=== PATIENT | male | born 1970 | race Caucasian/White ===

== ENCOUNTER 2016-12-04 10:07 | Emergency (ER) | payer OTHER ==
[~2016-12-04 10:07] MED LIST: CARV6.252 PO; DXY100 PO; LSN25 PO; RIVA1TAB4 PO
[2016-12-04 10:14] VITALS: TEMP 36.7; Ht 182.9 cm
[2016-12-04] MEDS ORDERED: ONDANSETRON INJ 2 MG/ML 2 ML VIAL IV STA (10:34)
[2016-12-04] MEDS ORDERED: SODIUM CHLORIDE 0.9% 1000ML 1,000 ML IV STA (10:34)
[2016-12-04] MEDS ORDERED: FENTANYL CITRATE INJ 50 MCG/1 ML 2 ML VIAL IV STA ×2 (10:34→11:46)
[2016-12-04] MEDS ORDERED: LISI-725 PO (10:43)
[2016-12-04] MEDS ORDERED: LISI-729 PO (10:43)
[2016-12-04 10:51] LABS: BASO % 0.7 %; BASO ABS # 0.05 K/uL (0-0.2); COMPLETE YES; EOS % 2.1 %; HEMATOCRIT 52.3 % (42-52); IG% 0.4 %; LYMPH % 19.1 %; LYMPH ABS # 1.46 K/uL (1.2-3.4); MEAN CELL VOLUME 96.5 fL (80-100); MEAN CORPUSCULAR HEMOGLOBIN 35.8 pg (25-34); MEAN CORPUSCULAR HGB CONC 37.1 g/dl (32-36); MEAN PLATELET VOLUME 11.5 fL (7.4-10.4); MONO % 9.7 %; PLATELET COUNT 207 K/uL (130-400); RED BLOOD COUNT 5.42 M/uL (4.7-6.1); WHITE BLOOD COUNT 7.63 K/uL (4.8-10.8)
[2016-12-04 11:01] LABS: PROTHROMBIN TIME (PATIENT) 10.8 SECONDS (9.0-12.0)
[2016-12-04 11:02] VITALS: O2SAT 94
[2016-12-04 11:10] LABS: ALT/SGPT 324 U/L (12-78); AST/SGOT 205 U/L (15-37); BLOOD UREA NITROGEN 11 mg/dl (7-18); BUN/CREATININE RATIO 9.5 (10-20); CARBON DIOXIDE 21 mmol/L (21-32); CHLORIDE 105 mmol/L (98-107); GLUCOSE 113 mg/dl (70-99); POTASSIUM 4.3 mmol/L (3.5-5.1); SODIUM 138 mmol/L (136-145)
[2016-12-04 11:13] LABS: ALKALINE PHOSPHATASE 104 U/L (45-117)
[2016-12-04] MEDS ORDERED: OPTIRAY 320 IV PRN (11:15)
--- NOTE | 2016-12-04 11:29 | DIAGNOSTIC IMAGING REPORT ---
SINGLE VIEW CHEST CLINICAL HISTORY: Trauma. FINDINGS: An AP, portable, upright chest radiograph is compared to study dated 11/11/2015. The examination is degraded by portable technique and patient rotation. The patient is status post midline sternotomy. The heart is top normal for projection. The pulmonary vasculature is noncongested. There are bibasilar airspace opacities, left greater than right. No large pleural effusion or pneumothorax is seen. There is a remote/healed right clavicular fracture. IMPRESSION: 1. There are bibasilar airspace opacities, left greater than right. This could represent atelectasis, aspiration, and/or pneumonia. Clinical correlation will be required. 2. No pneumothorax or large pleural effusion is identified. Electronically signed by: Dev Esposito M.D. 12/04/2016 11:27 AM Dictated Date/Time: 12/04/2016 11:25 AM
[2016-12-04 11:35] LABS: ISTAT HEMOGLOBIN 18.7 g/dl (14.0-18.0); ISTAT IONIZED CALCIUM 1.21 mmol/l (1.12-1.32)
--- NOTE | 2016-12-04 11:41 | DIAGNOSTIC IMAGING REPORT ---
HEAD WITHOUT CONTRAST (CT) CLINICAL HISTORY: 46 years-old Male presenting with EVALUATE FOR TRAUMA/INJURY, fall, left-sided pain. TECHNIQUE: Multidetector CT imaging of the head was performed without the use of intravenous contrast. IV contrast: None. A dose lowering technique was used consistent with the principles of ALARA (as low as reasonably achievable). COMPARISON: None. CT DOSE (mGy.cm): The estimated cumulative dose is 3005.96 mGy.cm. FINDINGS: [employer] topogram: Unremarkable. Ventricles and sulci normal in size. Brain parenchyma normal in appearance with preserved white-white differentiation. No mass effect or midline shift. No hemorrhage or acute territorial infarct. No extra-axial fluid collection. Paranasal sinuses and mastoid air cells clear. Calvarium intact. IMPRESSION: 1. No acute intracranial pathology. Electronically signed by: Dean Gamboa M.D. 12/04/2016 11:40 AM Dictated Date/Time: 12/04/2016 11:38 AM
--- NOTE | 2016-12-04 11:51 | DIAGNOSTIC IMAGING REPORT ---
CT SCAN OF THE ABDOMEN AND PELVIS WITH IV CONTRAST CLINICAL HISTORY: Fall. COMPARISON STUDY: No priors. TECHNIQUE: Following the IV administration of 119 cc of Optiray 320, CT scan of the abdomen and pelvis is performed from the lung bases to the proximal femora. Images are reviewed in the axial, sagittal, and coronal planes. IV contrast was administered without complication. A dose lowering technique was utilized adhering to the principles of ALARA. FINDINGS: Lung bases: The patient is status post midline sternotomy. The heart is mildly enlarged and without pericardial effusion. There are bibasilar airspace opacities, left greater than right. The appearance is typical for atelectasis. No pleural effusion or basilar pneumothorax is identified. There is a small hiatal hernia. Liver: The contrast-enhanced liver is enlarged, measuring 21.4 cm in length. The liver demonstrates diffusely diminished attenuation consistent with severe hepatic steatosis. Fatty sparing is noted adjacent to gallbladder fossa. There is no intrahepatic biliary ductal dilatation. The hepatic veins and portal veins are patent. Gallbladder: Small calcified gallstones are identified. Spleen: The spleen is mildly enlarged measuring 14.2 cm in length. Pancreas: Unremarkable. Adrenal glands: Unremarkable. Kidneys: The contrast enhanced kidneys are normal in size and without hydronephrosis. There is cortical scarring present in the upper pole of the left kidney. The kidneys enhance symmetrically. Abdominal vasculature: The abdominal aorta is normal in course and caliber noting mild atherosclerotic calcification. Bowel: The small bowel and colon are normal in course and caliber. The appendix is well-visualized and normal. Peritoneum: There is no intraperitoneal free air or abdominal ascites. There is a small fat-containing umbilical hernia. Lymphadenopathy: None. Pelvic viscera: The bladder, prostate, and seminal vesicles are normal as imaged. Numerous phleboliths are seen in the pelvis. There is a small fat-containing right inguinal hernia. Skeletal structures: There is a nonobstructed left lateral ninth rib fracture. No additional fracture is seen. No lytic or blastic lesions are identified. IMPRESSION: 1. There is an acute nondistracted left lateral ninth rib fracture. 2. No additional fracture is seen. 3. Bibasilar airspace opacities likely represent atelectasis. 4. There is no evidence of solid organ injury in the outer pelvis. 5. Cardiomegaly. 6. Hepatomegaly and severe hepatic steatosis. 7. Splenomegaly. 8. Cholelithiasis. 9. Additional findings as above. Electronically signed by: Dev Esposito M.D. 12/04/2016 11:50 AM Dictated Date/Time: 12/04/2016 11:42 AM
--- NOTE | 2016-12-04 11:54 | DIAGNOSTIC IMAGING REPORT ---
CHEST CT WITH CONTRAST CT DOSE: HISTORY: fall 15 ft, left sided chest and flank pain TECHNIQUE: Multiaxial CT images of the chest were performed following the intravenous administration of contrast. A dose lowering technique was utilized adhering to the principles of ALARA. COMPARISON: Chest 12/04/2016. FINDINGS: Old, healed right clavicle and right first rib fractures. Nondisplaced left lateral 10th rib fracture. Poststernotomy changes. Small amount of mucoid material within the proximal trachea. Otherwise, the central airways are patent. Patchy and linear bibasilar densities, left greater than right. No pneumothorax. No pleural effusions. A 6 mm nodule within the right middle lobe on image 178. Cholelithiasis. Hepatic steatosis. The visualized spleen and adrenal glands are unremarkable. No mediastinal or hilar lymphadenopathy. No pericardial effusion. The main pulmonary pain. Normal caliber thoracic aorta with no evidence for dissection. IMPRESSION: 1. Nondisplaced left lateral 10th rib fracture. No pneumothorax. 2. Patchy and linear bibasilar densities, left greater than right. This favors atelectasis. A pneumonia could also have a similar appearance in the appropriate clinical setting. 3. A 6 mm indeterminate pulmonary nodule within the right middle lobe. This favors a bronchial lymph node. However, please refer to the chart below for recommended follow-up. Please refer to below summary of Fleischner criteria recommendations for follow-up of incidental CT nodules (Yaya Howard, Guidelines for management of small pulmonary nodules detected on CT scans: A statement from the Fleischner Society, Radiology 237: [id number].) SOLID NODULES Solitary nodule size: <6 mm * Low risk patients: no follow-up needed * high risk patients: optional CT at 12 months Solitary nodule size: 6-8 mm * Low risk patients: follow-up at 6-12 months, then consider further follow-up at 18-24 months * high risk patients: initial follow-up CT at 6-12 months and then at 18-24 months if no change Solitary nodule size: >8 mm * either low or high risk patients - consider follow-up CT at 3 months, and/or CT-PET, and/or biopsy Multiple nodules size: <6 mm * Low risk patients: no routine follow-up * high risk patients: optional CT at 12 months Multiple nodules size: 6-8 mm * Low risk patients: follow-up at 3-6 months, then consider further follow-up at 18-24 months * high risk patients: follow-up at 3-6 months, then at 18-24 months if no change Multiple nodules size: >8 mm * Low risk patients: follow-up at 3-6 months, then consider further follow-up at 18-24 months * high risk patients: follow-up at 3-6 months, then at 18-24 months if no change Note: newly detected indeterminate nodule in persons 35 years of age or older. * Low risk patients: minimal or absent history of smoking and/or other known risk factors * high risk patients: history of smoking or of other known risk factors (e.g. first degree relative with lung cancer, or exposure to asbestos, radon, uranium) * if a nodule up to 8 mm is partly solid or is ground glass further follow-up is required after 24 months to exclude possible slow growing adenocarcinoma (LUCY) SUBSOLID NODULES Solitary pure ground-glass nodule * nodule size <6 mm - no CT follow-up required * nodule size >=6 mm - follow-up CT at 6-12 months, then every 2 years until 5 years Solitary part-solid nodule * nodule size <6 mm - no CT follow-up required * nodule size >=6 mm - follow-up CT at 3-6 months. If unchanged, and solid component remains <6 mm, then annual follow-up for 5 years Multiple subsolid nodules * nodule size <6 mm - follow-up CT at 3-6 months, consider further follow-up at 2 and 4 years if stable * nodule size >=6 mm - follow-up CT at 3-6 months, subsequent management based on the most suspicious nodule(s) Electronically signed by: Rasta Graham M.D. 12/04/2016 11:53 AM Dictated Date/Time: 12/04/2016 11:40 AM
[2016-12-04] MEDS ORDERED: OXYCODONE/ACETAMINOPHEN 5-325 TAB PO ONE (12:30)
[2016-12-04] MEDS ORDERED: DIAZEPAM 5MG TAB PO ONE (13:00)
[2016-12-04 13:19] LABS: URINE APPEARANCE CLEAR (CLEAR); URINE BILIRUBIN NEG (NEG); URINE COLOR DK YELLOW; URINE NITRITE NEG (NEG); URINE SPECIFIC GRAVITY 1.022 (1.000-1.030); UROBILINOGEN NEG (NEG)
[2016-12-04 13:21] LABS: MANUAL MICROSCOPIC REQUIRED? NO; REVIEW REQ? NO
--- NOTE | 2016-12-04 14:15 | EMERGENCY ROOM VISIT NOTE ---
History First contact with patient: 10:24 Chief Complaint: RIB PAIN Stated Complaint: RIB PAIN History of Present Illness The patient is a 46 year old male who presents to the Emergency Room with complaints of left-sided chest and flank pain that started after a fall 2 nights ago. Patient states he was up on a ladder, lost his footing and fell approximately 15 feet onto his left side. He denies hitting his head or loss of consciousness. He has been ambulatory since the fall, but has been having increasingly more severe pain on his left side. He denies any shortness of breath, but states it is difficult to take a deep breath because of pain. He is on Xarelto for history of A. fib. He denies any fevers, chills, dizziness or passing out, nausea or vomiting, diarrhea, blood in stool, hematuria, or unusual bruising. Review of Systems A complete 10 point review of systems was reviewed with the patient with pertinent positives and negatives as per history of present illness. All else were negative. Past Medical/Surgical History Medical Problems: (1) A-fib (2) Afib (3) Cardiomyopathy Social History Smoking Status: Never Smoker Marital Status: , in relationship Housing Status: lives with family Current/Historical Medications Scheduled Diazepam (Valium), 1-2 TABS PO TID Lisinopril (Zestril), 5 MG PO DAILY Lisinopril (Zestril), 20 MG PO DAILY Rivaroxaban (Xarelto), 20 MG PO DAILY Scheduled PRN Oxycodone Ir (Roxicodone Ir), 1-2 TAB PO Q6 PRN for Pain Physical Exam Vital Signs Date Time Temp Pulse Resp B/P (MAP) Pulse Ox O2 Delivery O2 Flow Rate FiO2 12/04/16 14:49 76 20 177/127 99 12/04/16 13:18 87 12/04/16 13:12 90 24 193/125 96 Room Air 12/04/16 12:39 156/109 12/04/16 12:38 85 156/109 93 Room Air 12/04/16 12:37 92 30 12/04/16 12:30 152/115 12/04/16 12:07 95 23 93 12/04/16 12:00 149/106 12/04/16 11:07 99 28 93 12/04/16 11:06 100 12/04/16 11:04 148 163/119 93 Room Air 12/04/16 11:04 163/119 12/04/16 11:02 94 Room Air 12/04/16 10:14 36.7 109 20 189/114 93 Room Air Physical Exam CONSTITUTIONAL: No acute distress. Well appearing and well nourished. Alert and oriented X 4 with normal affect. HEENT: Normocephalic, atraumatic. Pupils equal, round and reactive to light, EOMI. TMs normal. Pharynx normal. NECK: Supple, full active range of motion without discomfort. No midline tenderness. RESPIRATORY: Clear to auscultation bilaterally with no wheezing, crackles, rhonchi or stridor. Equal expansion bilaterally. CARDIOVASCULAR: Regular rate and rhythm with no murmurs, rubs or gallops. Normal peripheral perfusion. No edema. CHEST WALL: The left lateral chest wall is tender to palpation. No ecchymosis, no abrasions, no crepitus, no palpable fractures. No midsternal tenderness to palpation. GASTROINTESTINAL: Soft, distended, mildly tender to palpation in the left flank and left upper quadrant. Bowel sounds present in all quadrants. No ecchymosis or abrasions to the abdominal wall. MUSCULOSKELETAL: Full range of motion of all joints without discomfort. BACK: Thoracic and lumbar spine are aligned, no midline tenderness, step-offs, ecchymosis or swelling. INTEGUMENTARY: No rash or other significant dermatologic conditions noted. NEUROLOGIC: Cranial nerves II-XII grossly intact. No focal neurologic deficits noted. Medical Decision & Procedures ER Provider Diagnostic Interpretation: SINGLE VIEW CHEST CLINICAL HISTORY: Trauma. FINDINGS: An AP, portable, upright chest radiograph is compared to study dated 11/11/2015. The examination is degraded by portable technique and patient rotation. The patient is status post midline sternotomy. The heart is top normal for projection. The pulmonary vasculature is noncongested. There are bibasilar airspace opacities, left greater than right. No large pleural effusion or pneumothorax is seen. There is a remote/healed right clavicular fracture. IMPRESSION: 1. There are bibasilar airspace opacities, left greater than right. This could represent atelectasis, aspiration, and/or pneumonia. Clinical correlation will be required. 2. No pneumothorax or large pleural effusion is identified. ----- HEAD WITHOUT CONTRAST (CT) CLINICAL HISTORY: 46 years-old Male presenting with EVALUATE FOR TRAUMA/INJURY, fall, left-sided pain. TECHNIQUE: Multidetector CT imaging of the head was performed without the use of intravenous contrast. IV contrast: None. A dose lowering technique was used consistent with the principles of ALARA (as low as reasonably achievable). COMPARISON: None. CT DOSE (mGy.cm): The estimated cumulative dose is 3005.96 mGy.cm. FINDINGS: Enterprise [employer] topogram: Unremarkable. Ventricles and sulci normal in size. Brain parenchyma normal in appearance with preserved white-white differentiation. No mass effect or midline shift. No hemorrhage or acute territorial infarct. No extra-axial fluid collection. Paranasal sinuses and mastoid air cells clear. Calvarium intact. IMPRESSION: 1. No acute intracranial pathology. ----- CHEST CT WITH CONTRAST CT DOSE: HISTORY: fall 15 ft, left sided chest and flank pain TECHNIQUE: Multiaxial CT images of the chest were performed following the intravenous administration of contrast. A dose lowering technique was utilized adhering to the principles of ALARA. COMPARISON: Chest 12/04/2016. FINDINGS: Old, healed right clavicle and right first rib fractures. Nondisplaced left lateral 10th rib fracture. Poststernotomy changes. Small amount of mucoid material within the proximal trachea. Otherwise, the central airways are patent. Patchy and linear bibasilar densities, left greater than right. No pneumothorax. No pleural effusions. A 6 mm nodule within the right middle lobe on image 178. Cholelithiasis. Hepatic steatosis. The visualized spleen and adrenal glands are unremarkable. No mediastinal or hilar lymphadenopathy. No pericardial effusion. The main pulmonary pain. Normal caliber thoracic aorta with no evidence for dissection. IMPRESSION: 1. Nondisplaced left lateral 10th rib fracture. No pneumothorax. 2. Patchy and linear bibasilar densities, left greater than right. This favors atelectasis. A pneumonia could also have a similar appearance in the appropriate clinical setting. 3. A 6 mm indeterminate pulmonary nodule within the right middle lobe. This favors a bronchial lymph node. However, please refer to the chart below for recommended follow-up. ----- CT SCAN OF THE ABDOMEN AND PELVIS WITH IV CONTRAST CLINICAL HISTORY: Fall. COMPARISON STUDY: No priors. TECHNIQUE: Following the IV administration of 119 cc of Optiray 320, CT scan of the abdomen and pelvis is performed from the lung bases to the proximal femora. Images are reviewed in the axial, sagittal, and coronal planes. IV contrast was administered without complication. A dose lowering technique was utilized adhering to the principles of ALARA. FINDINGS: Lung bases: The patient is status post midline sternotomy. The heart is mildly enlarged and without pericardial effusion. There are bibasilar airspace opacities, left greater than right. The appearance is typical for atelectasis. No pleural effusion or basilar pneumothorax is identified. There is a small hiatal hernia. Liver: The contrast-enhanced liver is enlarged, measuring 21.4 cm in length. The liver demonstrates diffusely diminished attenuation consistent with severe hepatic steatosis. Fatty sparing is noted adjacent to gallbladder fossa. There is no intrahepatic biliary ductal dilatation. The hepatic veins and portal veins are patent. Gallbladder: Small calcified gallstones are identified. Spleen: The spleen is mildly enlarged measuring 14.2 cm in length. Pancreas: Unremarkable. Adrenal glands: Unremarkable. Kidneys: The contrast enhanced kidneys are normal in size and without hydronephrosis. There is cortical scarring present in the upper pole of the left kidney. The kidneys enhance symmetrically. Abdominal vasculature: The abdominal aorta is normal in course and caliber noting mild atherosclerotic calcification. Bowel: The small bowel and colon are normal in course and caliber. The appendix is well-visualized and normal. Peritoneum: There is no intraperitoneal free air or abdominal ascites. There is a small fat-containing umbilical hernia. Lymphadenopathy: None. Pelvic viscera: The bladder, prostate, and seminal vesicles are normal as imaged. Numerous phleboliths are seen in the pelvis. There is a small fat-containing right inguinal hernia. Skeletal structures: There is a nonobstructed left lateral ninth rib fracture. No additional fracture is seen. No lytic or blastic lesions are identified. IMPRESSION: 1. There is an acute nondistracted left lateral ninth rib fracture. 2. No additional fracture is seen. 3. Bibasilar airspace opacities likely represent atelectasis. 4. There is no evidence of solid organ injury in the outer pelvis. 5. Cardiomegaly. 6. Hepatomegaly and severe hepatic steatosis. 7. Splenomegaly. 8. Cholelithiasis. 9. Additional findings as above. Laboratory Results 12/04/16 10:30 Red Blood Count 5.42, Mean Corpuscular Volume 96.5, Mean Corpuscular Hemoglobin 35.8, Mean Corpuscular Hemoglobin Concent 37.1, Mean Platelet Volume 11.5, Neutrophils (%) (Auto) 68.0, Lymphocytes (%) (Auto) 19.1, Monocytes (%) (Auto) 9.7, Eosinophils (%) (Auto) 2.1, Basophils (%) (Auto) 0.7, Neutrophils # (Auto) 5.19, Lymphocytes # (Auto) 1.46, Monocytes # (Auto) 0.74, Eosinophils # (Auto) 0.16, Basophils # (Auto) 0.05 12/04/16 10:30 Test 12/04/16 10:30 12/04/16 10:35 12/04/16 13:00 White Blood Count 7.63 K/uL (4.8-10.8) Red Blood Count 5.42 M/uL (4.7-6.1) Hemoglobin 19.4 g/dL (14.0-18.0) Hematocrit 52.3 % (42-52) Mean Corpuscular Volume 96.5 fL (80-100) Mean Corpuscular Hemoglobin 35.8 pg (25-34) Mean Corpuscular Hemoglobin Concent 37.1 g/dl (32-36) Platelet Count 207 K/uL (130-400) Mean Platelet Volume 11.5 fL (7.4-10.4) Neutrophils (%) (Auto) 68.0 % Lymphocytes (%) (Auto) 19.1 % Monocytes (%) (Auto) 9.7 % Eosinophils (%) (Auto) 2.1 % Basophils (%) (Auto) 0.7 % Neutrophils # (Auto) 5.19 K/uL (1.4-6.5) Lymphocytes # (Auto) 1.46 K/uL (1.2-3.4) Monocytes # (Auto) 0.74 K/uL (0.11-0.59) Eosinophils # (Auto) 0.16 K/uL (0-0.5) Basophils # (Auto) 0.05 K/uL (0-0.2) RDW Standard Deviation 44.9 fL (36.4-46.3) RDW Coefficient of Variation 13.0 % (11.5-14.5) Immature Granulocyte % (Auto) 0.4 % Immature Granulocyte # (Auto) 0.03 K/uL (0.00-0.02) Erythrocyte Sedimentation Rate 23 mm/hr (0-14) Prothrombin Time 10.8 SECONDS (9.0-12.0) Prothromb Time International Ratio 1.0 (0.9-1.1) Activated Partial Thromboplast Time 27.1 SECONDS (21.0-31.0) Partial Thromboplastin Ratio 1.0 Estimated GFR () 83.0 Estimated GFR (Non- 71.6 BUN/Creatinine Ratio 9.5 (10-20) Calcium Level 10.0 mg/dl (8.5-10.1) Total Bilirubin 0.8 mg/dl (0.2-1) Direct Bilirubin 0.2 mg/dl (0-0.2) Aspartate Amino Transf (AST/SGOT) 205 U/L (15-37) Alanine Aminotransferase (ALT/SGPT) 324 U/L (12-78) Alkaline Phosphatase 104 U/L (45-117) Troponin I < 0.015 ng/ml (0-0.045) C-Reactive Protein 0.62 mg/dl (0-0.29) Total Protein 8.5 gm/dl (6.4-8.2) Albumin 4.3 gm/dl (3.4-5.0) Lipase 186 U/L (73-393) Bedside Hemoglobin 18.7 g/dl (14.0-18.0) Bedside Hematocrit 55 % (42-52) Bedside Sodium 140 mEq/L (135-144) Bedside Potassium 4.5 mEq/L (3.3-5.0) Bedside Chloride 105 mEq/L (101-112) Bedside Total CO2 23 mEq/l (24-31) Anion Gap 18.0 mmol/L (16-25) Bedside Blood Urea Nitrogen 13 mg/dl (7-18) Bedside Creatinine 1.0 mg/dl (0.6-1.3) Bedside Glucose (other) 116 mg/dl (70-99) Bedside Ionized Calcium (Carrie) 1.21 mmol/l (1.12-1.32) Urine Color DK YELLOW Urine Appearance CLEAR (CLEAR) Urine pH 5.0 (4.5-7.5) Urine Specific Donora 1.022 (1.000-1.030) Urine Protein NEG (NEG) Urine Glucose (UA) NEG (NEG) Urine Ketones NEG (NEG) Urine Occult Blood NEG (NEG) Urine Nitrite NEG (NEG) Urine Bilirubin NEG (NEG) Urine Urobilinogen NEG (NEG) Urine Leukocyte Esterase NEG (NEG) Medications Administered Medications (Trade) Dose Ordered Sig/Joanne Route Start Time Stop Time Status Last Admin Dose Admin Sodium Chloride 1,000 ml @ 999 mls/hr Q1H1M STAT IV 12/04/16 10:34 12/04/16 11:34 DC 12/04/16 10:54 999 MLS/HR Fentanyl Citrate (Fentanyl Inj) 100 mcg NOW STAT IV 12/04/16 10:34 12/04/16 10:40 DC 12/04/16 10:53 100 MCG Ondansetron HCl (Zofran Inj) 4 mg NOW STAT IV 12/04/16 10:34 12/04/16 10:40 DC 12/04/16 10:53 4 MG Fentanyl Citrate (Fentanyl Inj) 100 mcg NOW STAT IV 12/04/16 11:46 12/04/16 11:48 DC 12/04/16 11:53 100 MCG Oxycodone/ Acetaminophen (Percocet 5-325mg Tab) 2 tab NOW ONCE PO 12/04/16 12:30 12/04/16 12:31 DC 12/04/16 12:37 2 TAB Diazepam (Valium Tab) 10 mg NOW ONCE PO 12/04/16 13:00 12/04/16 13:01 DC 12/04/16 13:11 10 MG ECG Indication: chest pain Rate (beats per minute): 93 Rhythm: normal sinus Findings: no acute ischemic change, no ectopy Change: when compared to EKG from 11/12/2015, he is no longer in atrial fibrillation. Medical Decision CC: Patient presenting with complaint of left sided pain after fall Interpretation of Labs: No leukocytosis, no anemia, no significant electrolyte abnormalities, AST/ALT elevated, liver enzymes otherwise normal. Troponin negative. UA negative. Differential Diagnosis: Includes, but not limited to traumatic injuries including rib fracture, contusion, chest wall contusion, pulmonary contusion, pneumothorax, hemothorax, intra-abdominal traumatic injury, intra-abdominal hemorrhage, cardiac contusion, among others. Medication Reconciliation: I attest that I have personally reviewed the patient' s current medication list. Vital signs review: I reviewed the patient's vital signs and interpret them as follows: T: Afebrile; BP: Hypertensive; HR: Tachycardic; RR: Within normal limits; Pulse Ox: Within normal limits on room air. Blood pressure screening: The patient was found to have an elevated blood pressure and was referred to their primary doctor for recheck and further treatment. Summary: Patient was evaluated at bedside, history of physical exam performed. Patient is alert and in no acute distress, but does appear very uncomfortable, holding his left side and yelling in pain. Patient is exquisitely tender on left chest wall and left upper abdomen/flank. There is no ecchymosis or abrasion to this area noted, no palpable rib fractures or crepitus. Bilateral events, diminished in the left base with crackles. Orders were placed at bedside for labs, UA, IV fluids for hydration, IV fentanyl for pain, IV Zofran for nausea, EKG and troponin to assess for cardiac contusion, chest x-ray, CT head, chest, abdomen/pelvis to evaluate for traumatic injuries. Patient discussed with Dr. Morales, who agrees with my assessment and plan. Labs reviewed as above, unremarkable. Troponin is negative. EKG shows NSR with no ischemic changes. CT imaging reviewed, chest CT left ninth rib fracture, nondisplaced, bilateral atelectasis, no other traumatic injuries. Patient reassessed multiple times throughout ED stay, his pain was well treated with IV fentanyl followed by Percocet, as well as PO Valium for his muscle spasms, with good improvement. Patient was notably hypertensive, he does note that he did not take his blood pressure medications this morning. He was instructed to take this when he gets home and instructed to follow up with his PCP regarding recheck of his blood pressure. Patient was updated on all results and plan for discharge home, he verbalized understanding. Patient was instructed to follow-up with his PCP, and was given strict return precautions should his symptoms worsen, he verbalized understanding. Patient was discharged home in stable condition and ambulatory. Head Trauma GCS Score: 15 Medication Reconcilliation Current Medication List: was personally reviewed by me Blood Pressure Screening Patient's blood pressure: Elevated blood pressure Impression Primary Impression: Left rib fracture Departure Information Dispostion Home / Self-Care Condition GOOD Prescriptions Diazepam (Valium) 5 Mg Tab 1-2 TABS PO TID for 3 Days, #18 TAB Prov: Harini Tinsley, SLADE 12/04/16 Oxycodone Ir (Roxicodone Ir) 5 Mg Tab 1-2 TAB PO Q6 Y for Pain for 3 Days, #24 TAB For Initial Treatment Prov: KasilofHarini CRNP 12/04/16 Referrals Job Cronin PA-C (PCP) Patient Instructions ED Fx Rib, My [facility] Additional Instructions You have been treated in the Emergency Department for Rib fracture. You have received pain medicine in the emergency department which impairs your ability to operate a vehicle. It is illegal for you to drive after receiving these medicines. You have been prescribed oxycodone to be used for pain control. This is a narcotic medication. You cannot drive or consume alcohol while on this medicine. This medicine should only be used for pain that cannot be controlled with [id number] pain medicines. You have been prescribed Valium 1 tablet orally, three times per day as needed for muscle spasms. Take your first dose with caution as it can make you drowsy. Always take all medications as prescribed. For additional pain control, you can use the following [id number] medicines (if >12 yo): - Regular strength (325mg/tab) Tylenol (acetaminophen) 2 tabs every 4-6 hours as needed. Do not exceed 10 tablets in a 24 hour period. Avoid taking more than 3000 mg of Tylenol per day. This includes any other sources of acetaminophen you may take on a regular basis. - Regular strength (200 mg/tab) Advil (ibuprofen) 3 tabs every 6 hours as needed. Do not exceed a dose of 2400 mg per day. If this is an acute injury, ice can be applied to the area of pain for the first 3 days to help decrease pain and inflammation. After the first 3 days, a heating pad can be used over the area for continued soothing relief. To minimize your discomfort, you can hug a pillow while coughing or sneezing. Additionally, you should continue to force yourself to take nice, deep breaths. Full expansion of the lungs is necessary to prevent the accumulation of fluid in the lung tissue and development of pneumonia. Use the incentive spirometer device 10 times an hour while awake for the next several days to help keep the lungs open. You should schedule a follow-up appointment in 2-3 days with your Primary Care Provider for further evaluation and treatment of your pain. Return to the Emergency Department if your current symptoms worsen despite treatment course outlined above, or if you develop any of the following symptoms : Severe worsening pain, development of a wet cough, bloody cough, fever, chills , or increased shortness of breath. Problem Qualifiers Primary Impression: Left rib fracture Encounter type: initial encounter Rib fracture type: single rib Fracture type: closed Qualified Codes: S22.32XA - Fracture of one rib, left side, initial encounter for closed fracture
[2016-12-04] MEDS ORDERED: DIAZ-165 PO (14:33)
[2016-12-04] MEDS ORDERED: OXYC1TAB3 PO (14:33)
[2016-12-04 14:49] VITALS: BP 177/127; PULSE 76; O2SAT 99
== END 2016-12-04 14:52 | disposition home or self-care (01) ==
LOC: C.EDB 10:08 → C.EDA 14:52
DX: S22.32XA Fracture of one rib, left side, initial encounter for closed fracture (principal); W11.XXXA Fall on and from ladder, initial encounter; I48.91 Unspecified atrial fibrillation; I42.9 Cardiomyopathy, unspecified; Z79.01 Long term (current) use of anticoagulants; Z79.899 Other long term (current) drug therapy

== ENCOUNTER 2021-11-16 17:10 | Inpatient (IN) ==
--- NOTE | 2021-11-16 17:16 | ED Triage Note ---
Date of Service November 16, 2021 History of Present Illness This patient was briefly evaluated while in triage. An abbreviated physical exam was performed. This patient is a 51-year-old Male with past medical history of atrial fibrillation and aneurysm who presents to the ED for evaluation of low back pa in. Pt. saw PCP who "think's I'm full of fluid". Concern for "jaundice and fluid in his abdomen putting pressure on his heart." Physical Exam VITALS: Vitals are noted on the nurse's note and reviewed by myself. GENERAL: This is a 51 year old white male, ill-appearing but in no acute distress, nondiaphoretic, well-developed well-nourished. SKIN: Jaundiced. No obvious rashes, edema, erythema HEAD: Normocephalic atraumatic. EYES: scleral icterus. NECK: No JVD. LUNGS: No retractions or accessory muscle use. MUSCULOSKELETAL: Pt. presents in wheelchair. NEURO: Patient was alert and oriented to person place and time. No focal neurological deficits. Initial orders for labs and / or imaging were placed and patient was placed in the waiting area until a bed is available. Please see further documentation for the full ED course. MDM / Impression Impression Impression: Acute alcoholic hepatitis, Jaundice due to hepatitis, HEENA (acute kidney injury)
--- NOTE | 2021-11-16 17:47 | XRay Report ---
XR chest 1V portable CLINICAL HISTORY: Back pain TECHNIQUE: Single frontal radiograph of the chest was obtained. Comparison: Comparison is made to chest radiograph 04/18/2020 FINDINGS: Median sternotomy wires are unchanged. Atrial appendage clip is seen. Cardiomegaly is noted. Atelecta sis in the left lung is somewhat decrease in counts acute event from prior exam. Mild pulmonary vascu lar congestion is seen. No evidence of pleural effusion or pneumothorax. IMPRESSION: 1. Cardiomegaly and mild pulmonary vascular congestion. 2. No evidence of airspace opacity to suggest pneumonia. Atelectasis is in the left lung base. ACT 112: Negative or not required by law. Electronically signed by: Cliff Dela Cruz M.D. 11/16/2021 5:46 PM
[2021-11-16] MEDS ORDERED: SODIUM CHLORIDE 0.9% 1000ML 1,000 ML IV ONE (18:04)
[2021-11-16 18:28] LABS: Basophils # (auto) 0.04 K/uL (0-0.2); Basophils % (auto) 0.4 %; Eosinophils # (auto) 0.08 K/uL (0-0.50); Eosinophils % (auto) 0.9 %; Hematocrit (blood only) 35.2 % (40.1-51.0); Hemoglobin 12.5 g/dl (14.0-18.0); Immature Granulocytes # (auto) 0.28 K/uL (0.00-0.02); Immature Granulocytes % (auto) 3.1 %; Lymphocytes # (auto) 0.72 K/uL (1.2-3.4); Mean Corpuscular Hemoglobin 35.8 pg (25.0-34.0); Mean Corpuscular Hgb Conc 35.5 g/dL (32.0-36.0); Mean Corpuscular Volume 100.9 fL (80.0-100.0); Mean Platelet Volume 11.3 fL (9.4-12.4); Monocytes # (auto) 0.95 K/uL (0.24-0.82); Monocytes % (auto) 10.5 %; Neutrophils # (auto) 6.97 K/uL (1.4-6.5); Neutrophils % (auto) 77.1 %; Nucleated RBC # (auto) 0.12 K/uL (0-0); Nucleated RBC % (auto) 1.3 %; Platelet Count 115 K/uL (130-400); Platelet Estimate Decreased (Normal); RDW Coefficient of Variation 15.5 % (11.5-14.5); RDW Standard Deviation 56.9 fL (36.4-46.3); Red Blood Count 3.49 M/uL (4.63-6.08); Target Cells 1+; White Blood Count 9.04 K/ul (4.8-10.8)
[2021-11-16 18:31] LABS: Troponin I High Sensitivity 14.2 pg/ml (0-20)
[2021-11-16 18:32] LABS: INR 1.8 (0.9-1.1); Partial Thromboplastin Ratio 1.4; Partial Thromboplastin Time 38.5 Seconds (21.0-31.0); Prothrombin Time 18.4 Seconds (9.0-12.0)
[2021-11-16 18:43] LABS: iSTAT Hemoglobin 12.6 g/dl (14.0-18.0); iSTAT Ionized Calcium 1.18 mmol/l (1.12-1.32); iSTAT Potassium 3.7 mmol/L (3.3-5.0)
--- NOTE | 2021-11-16 19:31 | Emergency Department Note ---
History of Present Illness General Chief complaint: Abdominal Pain Stated complaint: FLUID IN STOMACH, SWELLING IN FEET Time Seen by Provider: 11/16/21 18:03 History of Present Illness Provider complaint: Jaundice low back pain Onset (ago): week(s) 2 Maximum Pain Intensity: 10 Associated symptoms: no chest pain, no cough, no fever/chills, no headaches, no nausea/vomiting or no shortness of breath 51-year-old male presents to the emergency department for jaundice and low back pain. Patient reports that he has been having low back pain for the last 2 weeks. He states he went to his primary care doctor who noticed his skin was yellow so they referred him to this emergency department. Patient is reporting no chest pain abdominal pain nausea vomiting diarrhea or difficulty breathing. She reports no fevers. He reports his skin has been turning yellow over the last 2 weeks. The patient does report that he is an alcoholic. He states he usually drinks 1/5 of alcohol a day but for the last 2 weeks he has not been drinking as much because he has not been feeling well. Patient states he did drink beer prior to arrival today. He reports that he has been taking Tylenol for his low back pain. He reports no falls or traumas. Home Medications Medication Instructions Recorded Confirmed Type carvedilol 12.5 mg tablet 12.5 mg PO DAILY 02/15/21 11/16/21 History omeprazole 20 mg capsule,delayed 20 mg PO DAILY 02/15/21 11/16/21 History release Allergies Allergy/AdvReac Type Severity Reaction Status Date / Time No Known Allergies Allergy Unverified 11/16/21 21:13 Past Med/Surg History Medical History (Updated 11/16/21 @ 21:16 by Jose Charles) A-fib Alcohol abuse Cardiomyopathy History of cardioversion No pertinent family history Surgical History H/O maze procedure Social History (Updated 11/16/21 @ 20:31 by Jose Charles) Smoking Status: Never smoker Hx Alcohol Use: Yes Alcohol type: hard liquor Alcohol type Comment: 1/5 of alcohol a day Preferred Language: Frisian Feels Safe at Home: Yes Review of Systems A total of 10 systems reviewed and were otherwise negative Physical Exam Vital Signs Vital Signs - 24 hr 11/16/21 17:14 11/16/21 17:49 11/16/21 17:50 Temperature 36.4 C L Temperature Source Temporal Artery Scan Pulse Rate 131 H 131 H 130 H Pulse Rate from SpO2 Sensor 131 H 130 H Respiratory Rate 16 26 H 27 H Blood Pressure 91/61 L Blood Pressure Mean 71 Pulse Oximetry 97 97 96 Oxygen Delivery Method Room Air Sepsis Recent Fever Within 48 Hours No Sepsis New/Unexplained Change in Mental Status N/A Sepsis Action Taken by Nursing No Action Required 11/16/21 18:00 11/16/21 18:00 11/16/21 18:10 Temperature Temperature Source Pulse Rate 130 H 130 H Pulse Rate from SpO2 Sensor 131 H 130 H Respiratory Rate 24 22 Blood Pressure 93/62 L Blood Pressure Mean 72 Pulse Oximetry 95 95 Oxygen Delivery Method Sepsis Recent Fever Within 48 Hours Sepsis New/Unexplained Change in Mental Status Sepsis Action Taken by Nursing 11/16/21 18:20 11/16/21 18:30 11/16/21 18:30 Temperature Temperature Source Pulse Rate 128 H 129 H Pulse Rate from SpO2 Sensor Respiratory Rate 16 22 Blood Pressure 91/59 L Blood Pressure Mean 69 Pulse Oximetry Oxygen Delivery Method Sepsis Recent Fever Within 48 Hours Sepsis New/Unexplained Change in Mental Status Sepsis Action Taken by Nursing 11/16/21 18:40 11/16/21 18:50 11/16/21 19:00 Temperature Temperature Source Pulse Rate 129 H 129 H 129 H Pulse Rate from SpO2 Sensor Respiratory Rate 22 27 H 22 Blood Pressure Blood Pressure Mean Pulse Oximetry Oxygen Delivery Method Sepsis Recent Fever Within 48 Hours Sepsis New/Unexplained Change in Mental Status Sepsis Action Taken by Nursing 11/16/21 19:10 11/16/21 19:26 11/16/21 19:26 Temperature Temperature Source Pulse Rate 129 H Pulse Rate from SpO2 Sensor 130 H Respiratory Rate 22 Blood Pressure 99/69 L Blood Pressure Mean 79 Pulse Oximetry 95 Oxygen Delivery Method Sepsis Recent Fever Within 48 Hours Sepsis New/Unexplained Change in Mental Status Sepsis Action Taken by Nursing 11/16/21 19:30 11/16/21 19:30 11/16/21 19:40 Temperature Temperature Source Pulse Rate 130 H 124 H Pulse Rate from SpO2 Sensor 130 H 124 H Respiratory Rate 23 23 Blood Pressure 93/68 L Blood Pressure Mean 76 Pulse Oximetry 95 94 Oxygen Delivery Method Sepsis Recent Fever Within 48 Hours Sepsis New/Unexplained Change in Mental Status Sepsis Action Taken by Nursing 11/16/21 19:44 11/16/21 19:44 11/16/21 19:45 Temperature Temperature Source Pulse Rate 124 H Pulse Rate from SpO2 Sensor 127 H Respiratory Rate 20 Blood Pressure 94/69 L 98/68 L Blood Pressure Mean 77 78 Pulse Oximetry 94 Oxygen Delivery Method Sepsis Recent Fever Within 48 Hours Sepsis New/Unexplained Change in Mental Status Sepsis Action Taken by Nursing 11/16/21 19:45 11/16/21 19:50 11/16/21 17:16 Temperature Temperature Source Pulse Rate 129 H 123 H Pulse Rate from SpO2 Sensor 128 H 120 H Respiratory Rate 23 23 Blood Pressure Blood Pressure Mean Pulse Oximetry 94 94 94 Oxygen Delivery Method Room Air Sepsis Recent Fever Within 48 Hours Sepsis New/Unexplained Change in Mental Status Sepsis Action Taken by Nursing 11/16/21 20:00 11/16/21 20:00 11/16/21 20:15 Temperature Temperature Source Pulse Rate 116 H Pulse Rate from SpO2 Sensor 113 H Respiratory Rate 24 Blood Pressure 100/69 105/74 Blood Pressure Mean 79 84 Pulse Oximetry 94 Oxygen Delivery Method Sepsis Recent Fever Within 48 Hours Sepsis New/Unexplained Change in Mental Status Sepsis Action Taken by Nursing 11/16/21 20:15 11/16/21 20:26 11/16/21 20:26 Temperature Temperature Source Pulse Rate 129 H 114 H Pulse Rate from SpO2 Sensor 129 H Respiratory Rate 22 20 Blood Pressure 82/65 L Blood Pressure Mean 70 Pulse Oximetry 95 92 Oxygen Delivery Method Sepsis Recent Fever Within 48 Hours Sepsis New/Unexplained Change in Mental Status Sepsis Action Taken by Nursing 11/16/21 20:30 11/16/21 20:30 11/16/21 20:35 Temperature Temperature Source Pulse Rate 120 H 120 H Pulse Rate from SpO2 Sensor 123 H Respiratory Rate 24 23 Blood Pressure 95/66 L Blood Pressure Mean 75 Pulse Oximetry 95 95 Oxygen Delivery Method Sepsis Recent Fever Within 48 Hours Sepsis New/Unexplained Change in Mental Status Sepsis Action Taken by Nursing 11/16/21 20:35 11/16/21 20:45 11/16/21 20:45 Temperature Temperature Source Pulse Rate 119 H Pulse Rate from SpO2 Sensor Respiratory Rate 26 H Blood Pressure 94/67 L 87/62 L Blood Pressure Mean 76 70 Pulse Oximetry Oxygen Delivery Method Sepsis Recent Fever Within 48 Hours Sepsis New/Unexplained Change in Mental Status Sepsis Action Taken by Nursing 11/16/21 20:54 11/16/21 20:54 11/16/21 21:00 Temperature Temperature Source Pulse Rate 118 H Pulse Rate from SpO2 Sensor Respiratory Rate 22 Blood Pressure 97/62 L 87/61 L Blood Pressure Mean 73 69 Pulse Oximetry Oxygen Delivery Method Sepsis Recent Fever Within 48 Hours Sepsis New/Unexplained Change in Mental Status Sepsis Action Taken by Nursing 11/16/21 21:00 11/16/21 21:09 11/16/21 21:09 Temperature Temperature Source Pulse Rate 120 H 116 H Pulse Rate from SpO2 Sensor Respiratory Rate 24 24 Blood Pressure 111/58 L Blood Pressure Mean 75 Pulse Oximetry 94 Oxygen Delivery Method Sepsis Recent Fever Within 48 Hours Sepsis New/Unexplained Change in Mental Status Sepsis Action Taken by Nursing 11/16/21 21:15 11/16/21 21:15 11/16/21 21:30 Temperature Temperature Source Pulse Rate 129 H 124 H Pulse Rate from SpO2 Sensor Respiratory Rate 21 20 Blood Pressure 94/65 L Blood Pressure Mean 74 Pulse Oximetry Oxygen Delivery Method Sepsis Recent Fever Within 48 Hours Sepsis New/Unexplained Change in Mental Status Sepsis Action Taken by Nursing 11/16/21 21:45 11/16/21 21:45 11/16/21 22:00 Temperature Temperature Source Pulse Rate 115 H 119 H Pulse Rate from SpO2 Sensor Respiratory Rate 20 31 H Blood Pressure 120/74 103/72 Blood Pressure Mean 89 82 Pulse Oximetry 93 95 Oxygen Delivery Method Sepsis Recent Fever Within 48 Hours Sepsis New/Unexplained Change in Mental Status Sepsis Action Taken by Nursing 11/16/21 22:15 11/16/21 22:15 11/16/21 22:23 Temperature Temperature Source Pulse Rate 111 H 113 H Pulse Rate from SpO2 Sensor 203 H Respiratory Rate 28 H 23 Blood Pressure 90/65 L Blood Pressure Mean 73 Pulse Oximetry 94 Oxygen Delivery Method Sepsis Recent Fever Within 48 Hours Sepsis New/Unexplained Change in Mental Status Sepsis Action Taken by Nursing 11/16/21 22:23 11/16/21 22:30 11/16/21 22:30 Temperature Temperature Source Pulse Rate 117 H Pulse Rate from SpO2 Sensor 145 H Respiratory Rate 22 Blood Pressure 99/70 L 106/70 Blood Pressure Mean 79 82 Pulse Oximetry Oxygen Delivery Method Sepsis Recent Fever Within 48 Hours Sepsis New/Unexplained Change in Mental Status Sepsis Action Taken by Nursing 11/16/21 22:45 11/16/21 22:45 11/16/21 23:00 Temperature Temperature Source Pulse Rate 115 H Pulse Rate from SpO2 Sensor 130 H Respiratory Rate 26 H Blood Pressure 96/69 L 99/66 L Blood Pressure Mean 78 77 Pulse Oximetry 91 Oxygen Delivery Method Sepsis Recent Fever Within 48 Hours Sepsis New/Unexplained Change in Mental Status Sepsis Action Taken by Nursing 11/16/21 23:00 Temperature Temperature Source Pulse Rate 116 H Pulse Rate from SpO2 Sensor Respiratory Rate 20 Blood Pressure Blood Pressure Mean Pulse Oximetry Oxygen Delivery Method Sepsis Recent Fever Within 48 Hours Sepsis New/Unexplained Change in Mental Status Sepsis Action Taken by Nursing Physical Exam GENERAL: Ill appearing EYES: scleral icterus. NECK: Normal range of motion. Neck supple. No JVD present. No spinous process tenderness present. No carotid bruit present. No rigidity. No tracheal deviation and normal range of motion present. No Brudzinski's sign and no Kernig's sign noted. CV: Tachycardic rate, regular rhythm, normal heart sounds and intact distal pulses. There is no peripheral edema. Palpable radial pulses bue. PULM/CHEST: Effort normal and breath sounds normal. No respiratory distress. No stridor. He has no wheezes. He has no rales. - Chest Wall: He exhibits no tenderness. ABD: The abdomen is soft and distended. Bowel sounds are normal.No mass is present. There is no tenderness. There is no rebound, no guarding, no Betts's sign and no tenderness at McBurney's point. Rovsig negative. MUSC/SKEL: Normal range of motion. There is no peripheral edema, tenderness or deformity. LYMPH: No cervical adenopathy. NEURO: He is alert and oriented to person, place, and time. He has normal strength. No cranial nerve deficit or sensory deficit. Coordination and gait normal. GCS eye subscore is 4. GCS verbal subscore is 5. GCS motor subscore is 6. Cerebellar tests wnl. SKIN: Jaundiced. Course Course 180: The patient was evaluated in room C2. A complete history and physical exam was performed Cardiac monitoring: An order was placed for continuous cardiac monitoring. The monitor shows a rate of 120 with sinus tachycardia rhythm Bedside ultrasound was performed and there is no fluid collection visualized that can be drained with bedside paracentesis. Sepsis protocols were initiated 2010: Patient's blood pressure and heart rate have improved with IV fluids. Labs show white blood cell count of 9 hemoglobin 12.5 platelet count 115. INR 1 .8. Sodium 126. Creatinine is unable to be performed on lab test however the POC creatinine is 3. Total bilirubin 39. AST 192 ALT 110. States ammonia lab creatinine salicylate and acetaminophen level were unable to be tested due to the icteric nature of the blood. This is also true for lipase. The patient serum alcohol was 1.6. I discussed case with GI on-call DrJas Bain states that the patient has a very high meld score and he read recommend transfer possible. He does state that the tertiary care centers might not accept the patient as he is an active alcoholic and they might not want to conduct a transplant on him. He states that if this is the case, the patient should be admitted to the ICU and he will see him in the morning. 2055: BP Stable at 97/62. Alert and oriented x3. Tachycardia remains. Patient not reporting any pain. Spoke with Dr. Flor Hepatology and Dr. Lucas ICU at [facility]. Discussed the patient's cause presentation HPI labs and imaging results. Drs. Flor and Shayy state that they think the patient's meld score is falsely elevated due to the elevated bilirubin. They think the patient most likely suffering from alcoholic hepatitis and that no transfer is warranted at this time. They recommend supportive nutritional care for the pa tient. Banana bag started for the patient. This had no steroids or NAC is indicated at this time. They stated that transfer and surgery if the patient starts having altered mental status. They stated an ammonia is not required for this just clinically the patient states having altered mental status. They stated that transfer should also be considered if the patient's INR starts increasing. They recommend conducting INR twice daily. They stated that no need for NAC the patient's liver enzymes start going up further as I do not think that the transaminitis is due to Tylenol toxicity but most likely due to alcoholic hepatitis given the low values of the AST and ALT. I discussed the case with the ICU team Kenneth GREY ROLL MAN for Dr. Beauchamp who states he will admit the patient to the ICU. Discussed the case with the [facility] hospitalist team Dr. Hampton who states he will admit the patient. With the patient and at bedside who are in agreement that the patient should be admitted to the ICU. Administered Medications Sodium Chloride (Nss 1000ml) 1,000 mls @ 125 mls/hr IV .Q8H MAYRA Stop: 12/16/21 20:29 Last Admin: 11/16/21 20:39 Dose: 125 mls/hr Documented By: [id number] Norepinephrine Bitartrate (Levophed/D5w) 4 mg in 250 mls @ 19.688 mls/hr IV .[id number] [facility]; Protocol Stop: 12/16/21 21:59 Last Admin: 11/16/21 21:45 Dose: 0.05 mcg/kg/min, 19.7 mls/hr Documented By: ANGELA Co-signed By: NORMA Discontinued Medications Sodium Chloride (Nss 1000ml) 1,000 mls @ 999 mls/hr IV .Q1H1M ONE Stop: 11/16/21 19:04 Last Infusion: 11/16/21 20:40 Dose: 0 mls/hr Documented By: [id number] Admin: 11/16/21 19:34 Dose: 999 mls/hr Documented By: [id number] Multivitamins 10 ml/ Thiamine HCl 100 mg/ Folic Acid 1 mg/Sodium Chloride 1,011.2 mls @ 1,011.2 mls/hr IV .Q1H ONE Stop: 11/16/21 21:55 Last Infusion: 11/16/21 22:47 Dose: 0 mls/hr Documented By: [id number] Admin: 11/16/21 21:45 Dose: 1,011.2 mls/hr Documented By: ANGELA Phytonadione 5 mg/ Dextrose 50.5 mls @ 101 mls/hr IV 2130 ONE Stop: 11/16/21 21:59 Last Infusion: 11/16/21 22:47 Dose: 0 mls/hr Documented By: [id number] Admin: 11/16/21 21:45 Dose: 101 mls/hr Documented By: ANGELA Critical Care Time Critical Care Time: Yes Total Critical Care Time: 95 I have personally spent greater than 95 minutes of critical care time in the direct management of this patient. This includes bedside care, interpretation of diagnostic studies, and testing, discussion with consultants, patient, and family members, and other required patient management activities. This 95 minutes is in excess of all separately billable procedures. Medical Decision Making Laboratory Data Result diagrams: 11/16/21 17:45 11/16/21 17:45 Lab Results 11/16/21 11/16/21 11/16/21 Range/Units 17:45 17:45 17:45 WBC 9.04 (4.8-10.8) K/ul RBC 3.49 L (4.63-6.08) M/uL Hgb 12.5 L (14.0-18.0) g/dl POC Hgb (14.0-18.0) g/dl Hct 35.2 L (40.1-51.0) % POC Hct (42-52) % MCV 100.9 H (80.0-100.0) fL MCH 35.8 H (25.0-34.0) pg MCHC 35.5 (32.0-36.0) g/dL RDW Std Deviation 56.9 H (36.4-46.3) fL RDW Coeff of Yonatan 15.5 H (11.5-14.5) % Plt Count 115 L (130-400) K/uL MPV 11.3 (9.4-12.4) fL Immature Gran % (Auto) 3.1 % Neut % (Auto) 77.1 % Lymph % (Auto) 8.0 % [place] % (Auto) 10.5 % Eos % (Auto) 0.9 % Baso % (Auto) 0.4 % Neut # (Auto) 6.97 H (1.4-6.5) K/uL Lymph # (Auto) 0.72 L (1.2-3.4) K/uL [place] # (Auto) 0.95 H (0.24-0.82) K/uL Eos # (Auto) 0.08 (0-0.50) K/uL Baso # (Auto) 0.04 (0-0.2) K/uL Immature Gran # (Auto) 0.28 H (0.00-0.02) K/uL Absolute Nucleated RBC 0.12 H (0-0) K/uL Nucleated RBC % (auto) 1.3 % Platelet Estimate Decreased L (Normal) Target Cells 1+ PT 18.4 H (9.0-12.0) Seconds INR 1.8 H (0.9-1.1) APTT 38.5 H (21.0-31.0) Seconds PTT Ratio 1.4 VBG pH (7.36-7.41) VBG pCO2 (38-50) mmHg VBG pO2 mmHg VBG HCO3 mmol/L VBG O2 Saturation % VBG Base Excess mEq/L POC Sodium (135-144) mmol/L Sodium 126 L (136-145) mmol/L POC Potassium (3.3-5.0) mmol/L Potassium 3.7 (3.5-5.1) mmol/L POC Chloride (101-112) mmol/L Chloride 89 L (98-107) mmol/L Carbon Dioxide 24 (21-32) mmol/L POC Total CO2 (24-31) mmol/L Anion Gap 13 H (3-11) POC Anion Gap (16-25) mmol/L POC BUN (7-18) mg/dl BUN TNP Creatinine TNP POC Creatinine (0.6-1.3) mg/dl Est Cr Clr Drug Dosing TNP Est GFR ( Amer) TNP Est GFR (Non-Af Amer) TNP BUN/Creatinine Ratio TNP Glucose 116 H (70-99(Fasting)) mg/dl POC Glucose (other) (70-99) mg/dl Lactate Calcium 9.5 (8.5-10.1) mg/dl POC Ioniz Calcium Carrie (1.12-1.32) mmol/l Total Bilirubin 39.0 H (0.2-1.0) mg/dl Direct Bilirubin (0-0.2) mg/dl AST 192 H (13-39) U/L ALT 110 H (7-52) U/L Alkaline Phosphatase TNP Ammonia Troponin I High Sens 14.2 (0-20) pg/ml Total Protein 5.9 L (6.0-8.3) gm/dl Albumin 2.9 L (3.4-5.0) gm/dl Globulin 3.0 (2.5-4.0) gm/dl Albumin/Globulin Ratio 1.0 (0.9-2) Lipase TNP Procalcitonin (0-0.5) ng/ml Salicylates Acetaminophen Ethyl Alcohol mg/dL (<10.0) mg/dl SARS-CoV-2, RNA, NAAT (NEGATIVE) 11/16/21 11/16/21 11/16/21 Range/Units 18:31 18:55 18:55 WBC (4.8-10.8) K/ul RBC (4.63-6.08) M/uL Hgb (14.0-18.0) g/dl POC Hgb 12.6 L (14.0-18.0) g/dl Hct (40.1-51.0) % POC Hct 37 L (42-52) % MCV (80.0-100.0) fL MCH (25.0-34.0) pg MCHC (32.0-36.0) g/dL RDW Std Deviation (36.4-46.3) fL RDW Coeff of Yonatan (11.5-14.5) % Plt Count (130-400) K/uL MPV (9.4-12.4) fL Immature Gran % (Auto) % Neut % (Auto) % Lymph % (Auto) % [place] % (Auto) % Eos % (Auto) % Baso % (Auto) % Neut # (Auto) (1.4-6.5) K/uL Lymph # (Auto) (1.2-3.4) K/uL [place] # (Auto) (0.24-0.82) K/uL Eos # (Auto) (0-0.50) K/uL Baso # (Auto) (0-0.2) K/uL Immature Gran # (Auto) (0.00-0.02) K/uL Absolute Nucleated RBC (0-0) K/uL Nucleated RBC % (auto) % Platelet Estimate (Normal) Target Cells PT (9.0-12.0) Seconds INR (0.9-1.1) APTT (21.0-31.0) Seconds PTT Ratio VBG pH (7.36-7.41) VBG pCO2 (38-50) mmHg VBG pO2 mmHg VBG HCO3 mmol/L VBG O2 Saturation % VBG Base Excess mEq/L POC Sodium 128 L (135-144) mmol/L Sodium (136-145) mmol/L POC Potassium 3.7 (3.3-5.0) mmol/L Potassium (3.5-5.1) mmol/L POC Chloride 92 L (101-112) mmol/L Chloride (98-107) mmol/L Carbon Dioxide (21-32) mmol/L POC Total CO2 26 (24-31) mmol/L Anion Gap (3-11) POC Anion Gap 14.0 L (16-25) mmol/L POC BUN 36 H (7-18) mg/dl BUN Creatinine POC Creatinine 3.0 H (0.6-1.3) mg/dl Est Cr Clr Drug Dosing Est GFR ( Amer) Est GFR (Non-Af Amer) BUN/Creatinine Ratio Glucose (70-99(Fasting)) mg/dl POC Glucose (other) 127 H (70-99) mg/dl Lactate Calcium (8.5-10.1) mg/dl POC Ioniz Calcium Carrie 1.18 (1.12-1.32) mmol/l Total Bilirubin (0.2-1.0) mg/dl Direct Bilirubin (0-0.2) mg/dl AST (13-39) U/L ALT (7-52) U/L Alkaline Phosphatase Ammonia Troponin I High Sens (0-20) pg/ml Total Protein (6.0-8.3) gm/dl Albumin (3.4-5.0) gm/dl Globulin (2.5-4.0) gm/dl Albumin/Globulin Ratio (0.9-2) Lipase Procalcitonin (0-0.5) ng/ml Salicylates TNP Acetaminophen TNP Ethyl Alcohol mg/dL 11.6 H (<10.0) mg/dl SARS-CoV-2, RNA, NAAT (NEGATIVE) 11/16/21 11/16/21 11/16/21 Range/Units 19:00 19:05 20:55 WBC (4.8-10.8) K/ul RBC (4.63-6.08) M/uL Hgb (14.0-18.0) g/dl POC Hgb (14.0-18.0) g/dl Hct (40.1-51.0) % POC Hct (42-52) % MCV (80.0-100.0) fL MCH (25.0-34.0) pg MCHC (32.0-36.0) g/dL RDW Std Deviation (36.4-46.3) fL RDW Coeff of Yonatan (11.5-14.5) % Plt Count (130-400) K/uL MPV (9.4-12.4) fL Immature Gran % (Auto) % Neut % (Auto) % Lymph % (Auto) % [place] % (Auto) % Eos % (Auto) % Baso % (Auto) % Neut # (Auto) (1.4-6.5) K/uL Lymph # (Auto) (1.2-3.4) K/uL [place] # (Auto) (0.24-0.82) K/uL Eos # (Auto) (0-0.50) K/uL Baso # (Auto) (0-0.2) K/uL Immature Gran # (Auto) (0.00-0.02) K/uL Absolute Nucleated RBC (0-0) K/uL Nucleated RBC % (auto) % Platelet Estimate (Normal) Target Cells PT (9.0-12.0) Seconds INR (0.9-1.1) APTT (21.0-31.0) Seconds PTT Ratio VBG pH (7.36-7.41) VBG pCO2 (38-50) mmHg VBG pO2 mmHg VBG HCO3 mmol/L VBG O2 Saturation % VBG Base Excess mEq/L POC Sodium (135-144) mmol/L Sodium (136-145) mmol/L POC Potassium (3.3-5.0) mmol/L Potassium (3.5-5.1) mmol/L POC Chloride (101-112) mmol/L Chloride (98-107) mmol/L Carbon Dioxide (21-32) mmol/L POC Total CO2 (24-31) mmol/L Anion Gap (3-11) POC Anion Gap (16-25) mmol/L POC BUN (7-18) mg/dl BUN Creatinine POC Creatinine (0.6-1.3) mg/dl Est Cr Clr Drug Dosing Est GFR ( Amer) Est GFR (Non-Af Amer) BUN/Creatinine Ratio Glucose (70-99(Fasting)) mg/dl POC Glucose (other) (70-99) mg/dl Lactate Calcium (8.5-10.1) mg/dl POC Ioniz Calcium Carrie (1.12-1.32) mmol/l Total Bilirubin 33.8 H (0.2-1.0) mg/dl Direct Bilirubin 20.7 H (0-0.2) mg/dl AST 156 H (13-39) U/L ALT 89 H (7-52) U/L Alkaline Phosphatase TNP Ammonia TNP Troponin I High Sens (0-20) pg/ml Total Protein 4.9 L D (6.0-8.3) gm/dl Albumin 2.4 L (3.4-5.0) gm/dl Globulin (2.5-4.0) gm/dl Albumin/Globulin Ratio (0.9-2) Lipase Procalcitonin (0-0.5) ng/ml Salicylates Acetaminophen Ethyl Alcohol mg/dL (<10.0) mg/dl SARS-CoV-2, RNA, NAAT NEGATIVE (NEGATIVE) 11/16/21 11/16/21 11/16/21 Range/Units 21:15 21:15 21:16 WBC (4.8-10.8) K/ul RBC (4.63-6.08) M/uL Hgb (14.0-18.0) g/dl POC Hgb (14.0-18.0) g/dl Hct (40.1-51.0) % POC Hct (42-52) % MCV (80.0-100.0) fL MCH (25.0-34.0) pg MCHC (32.0-36.0) g/dL RDW Std Deviation (36.4-46.3) fL RDW Coeff of Yonatan (11.5-14.5) % Plt Count (130-400) K/uL MPV (9.4-12.4) fL Immature Gran % (Auto) % Neut % (Auto) % Lymph % (Auto) % [place] % (Auto) % Eos % (Auto) % Baso % (Auto) % Neut # (Auto) (1.4-6.5) K/uL Lymph # (Auto) (1.2-3.4) K/uL [place] # (Auto) (0.24-0.82) K/uL Eos # (Auto) (0-0.50) K/uL Baso # (Auto) (0-0.2) K/uL Immature Gran # (Auto) (0.00-0.02) K/uL Absolute Nucleated RBC (0-0) K/uL Nucleated RBC % (auto) % Platelet Estimate (Normal) Target Cells PT (9.0-12.0) Seconds INR (0.9-1.1) APTT (21.0-31.0) Seconds PTT Ratio VBG pH 7.47 H (7.36-7.41) VBG pCO2 33 L (38-50) mmHg VBG pO2 50 mmHg VBG HCO3 24 mmol/L VBG O2 Saturation 86.7 % VBG Base Excess 0.9 mEq/L POC Sodium (135-144) mmol/L Sodium (136-145) mmol/L POC Potassium (3.3-5.0) mmol/L Potassium (3.5-5.1) mmol/L POC Chloride (101-112) mmol/L Chloride (98-107) mmol/L Carbon Dioxide (21-32) mmol/L POC Total CO2 (24-31) mmol/L Anion Gap (3-11) POC Anion Gap (16-25) mmol/L POC BUN (7-18) mg/dl BUN Creatinine POC Creatinine (0.6-1.3) mg/dl Est Cr Clr Drug Dosing Est GFR ( Amer) Est GFR (Non-Af Amer) BUN/Creatinine Ratio Glucose (70-99(Fasting)) mg/dl POC Glucose (other) (70-99) mg/dl Lactate TNP Calcium (8.5-10.1) mg/dl POC Ioniz Calcium Carrie (1.12-1.32) mmol/l Total Bilirubin (0.2-1.0) mg/dl Direct Bilirubin (0-0.2) mg/dl AST (13-39) U/L ALT (7-52) U/L Alkaline Phosphatase Ammonia Troponin I High Sens (0-20) pg/ml Total Protein (6.0-8.3) gm/dl Albumin (3.4-5.0) gm/dl Globulin (2.5-4.0) gm/dl Albumin/Globulin Ratio (0.9-2) Lipase Procalcitonin 1.79 H (0-0.5) ng/ml Salicylates Acetaminophen Ethyl Alcohol mg/dL (<10.0) mg/dl SARS-CoV-2, RNA, NAAT (NEGATIVE) Imaging Data Radiologist's Impression: Chest X-Ray 11/16/21 17:17 XR chest 1V portable CLINICAL HISTORY: Back pain TECHNIQUE: Single frontal radiograph of the chest was obtained. Comparison: Comparison is made to chest radiograph 04/18/2020 FINDINGS: Median sternotomy wires are unchanged. Atrial appendage clip is seen. Cardiomegaly is noted. Atelectasis in the left lung is somewhat decrease in counts acute event from prior exam. Mild pulmonary vascular congestion is seen. No evidence of pleural effusion or pneumothorax. IMPRESSION: 1. Cardiomegaly and mild pulmonary vascular congestion. 2. No evidence of airspace opacity to suggest pneumonia. Atelectasis is in the left lung base. ACT 112: Negative or not required by law. Electronically signed by: Cliff Dela Cruz M.D. 11/16/2021 5:46 PM Abdomen/Pelvis CT 11/16/21 18:35 CT abd pelvis wo con CLINICAL HISTORY: heena jaundice TECHNIQUE: Helical axial images of the abdomen and pelvis were obtained. Automated dose lowering techniques and/or adjustment according to patient size were utilized for this exam. This exam was performed without intravenous contrast. CT DOSE: 1236.17 mGy.cm COMPARISON: Comparison is made to CT abdomen pelvis 12/04/2016 FINDINGS: Lower chest: There is a small left pleural effusion with underlying atelectasi s. Mild right atelectasis is also seen. Liver: Hepatic steatosis is noted. The liver is enlarged measuring 19 cm in craniocaudal dimension. Gallbladder and biliary tree: Cholelithiasis is seen without evidence of cholecystitis. No intra- or extrahepatic biliary ductal dilation. Pancreas: Unremarkable, no focal lesions. Spleen: The spleen measures 17 centimeters in craniocaudal dimension. Adrenals: Unremarkable. Kidneys and ureters: Perinephric stranding is noted bilaterally. Bladder: Unremarkable. Reproductive organs: Unremarkable. Bowel: Unremarkable appearance of the bowel. The appendix is normal. There is a small hiatal hernia. Lymph nodes Retroperitoneal: Unremarkable. Pelvic: Unremarkable. Mesenteric: Unremarkable. Peritoneum: There is a moderate amount of free fluid in the pelvis as well as mild peritoneal fat stranding. A small locule of fluid is noted in the hiatal hernia. Vessels: Mild calcifications are seen. Extensive phleboliths are noted. Abdominal wall: A tiny fat-containing supraumbilical hernia is seen. Bones: Old healed rib fractures are seen on the right. Degenerative changes are seen in the spine. IMPRESSION: 1. Hepatic steatosis and hepatomegaly are again seen. Superimposed hepatitis cannot be excluded. 2. No hydronephrosis or obstructive stone is seen. 3. Small left pleural effusion with underlying left greater than right atelectasis. 4. Cholelithiasis without cholecystitis. ACT 112: Negative or not required by law. Electronically signed by: Cliff Dela Cruz M.D. 11/16/2021 7:48 PM ECG Data Rate (beats per minute): 131 Rhythm: + sinus tachycardia ECG Intervals/blocks: + Normal QRS, + Short TN and + Prolonged QT ECG ST segments: + Normal ST segments [facility] Narrative 180: The patient was evaluated in room C2. A complete history and physical exam was performed Cardiac monitoring: An order was placed for continuous cardiac monitoring. The monitor shows a rate of 120 with sinus tachycardia rhythm Bedside ultrasound was performed and there is no fluid collection visualized that can be drained with bedside paracentesis. Sepsis protocols were initiated 2010: Patient's blood pressure and heart rate have improved with IV fluids. Labs show white blood cell count of 9 hemoglobin 12.5 platelet count 115. INR 1.8. Sodium 126. Creatinine is unable to be performed on lab test however the POC creatinine is 3. Total bilirubin 39. AST 192 ALT 110. States ammonia lab creatinine salicylate and acetaminophen level were unable to be tested due to the icteric nature of the blood. This is also true for lipase. The patient serum alcohol was 1.6. I discussed case with GI on-call DrJas Bain states that the patient has a very high meld score and he read recommend transfer possible. He does state that the tertiary care centers might not accept the patient as he is an active alcoholic and they might not want to conduct a transplant on him. He states that if this is the case, the patient should be admitted to the ICU and he will see him in the morning. 2055: BP Stable at 97/62. Alert and oriented x3. Tachycardia remains. Patient not reporting any pain. Spoke with Dr. Flor Hepatology and Dr. Lucas ICU at [facility]. Discussed the patient's cause presentation HPI labs and imaging results. Drs. Flor and Shayy state that they think the patient's meld score is falsely elevated due to the elevated bilirubin. They think the patient most likely suffering from alcoholic hepatitis and that no transfer is warranted at this time. They recommend supportive nutritional care for the patient. Banana bag started for the patient. This had no steroids or NAC is indicated at this time. They stated that transfer and surgery if the patient starts having altered mental status. They stated an ammonia is not required for this just clinically the patient states having altered mental status. They stated that transfer should also be considered if the patient's INR starts increasing. They recommend conducting INR twice daily. They stated that no need for NAC the patient's liver enzymes start going up further as I do not think that the transaminitis is due to Tylenol toxicity but most likely due to alcoholic hepatitis given the low values of the AST and ALT. I discussed the case with the ICU team Kenneth GREY ROLL MAN for Dr. Beauchamp who states he will admit the p atient to the ICU. Discussed the case with the [facility] hospitalist team Dr. Hampton who states he will admit the patient. With the patient and at bedside who are in agreement that the patient should be admitted to the ICU. Impression & Plan Acute alcoholic hepatitis, Jaundice due to hepatitis, HEENA (acute kidney injury) Discharge Plan Visit Data Chief Complaint: Abdominal Pain Stated Complaint: FLUID IN STOMACH, SWELLING IN FEET ED Provider: Jose Charles Discharge Problem: Acute alcoholic hepatitis, Jaundice due to hepatitis, HEENA (acute kidney injury) Patient Disposition: Admitted As Inpatient Discharge Instructions Interventions: ED Discharge Assessment Last Done: 11/16/21 23:14 Forms Stand Alone Forms: My [facility] Prescriptions Prescriptions: No Action carvedilol 12.5 mg tablet 12.5 mg PO DAILY omeprazole 20 mg capsule,delayed release(DR/EC) 20 mg PO DAILY Referrals Referrals: Job Cronin [Primary Care Provider] -
[2021-11-16 19:42] LABS: Alanine Aminotransferase 110 U/L (7-52); Albumin Level 2.9 gm/dl (3.4-5.0); Anion Gap 13 (3-11); Aspartate Aminotransferase 192 U/L (13-39); Calcium 9.5 mg/dl (8.5-10.1); Carbon Dioxide 24 mmol/L (21-32); Chloride 89 mmol/L (98-107); Glucose 116 mg/dl (70-99(Fasting)); Potassium 3.7 mmol/L (3.5-5.1); Sodium 126 mmol/L (136-145); Total Protein 5.9 gm/dl (6.0-8.3)
--- NOTE | 2021-11-16 19:51 | CT Scan Report ---
CT abd pelvis wo con CLINICAL HISTORY: jacques jaundice TECHNIQUE: Helical axial images of the abdomen and pelvis were obtained. Automated dose lowering tech niques and/or adjustment according to patient size were utilized for this exam. This exam was perfor med without intravenous contrast. CT DOSE: 1236.17 mGy.cm COMPARISON: Comparison is made to CT abdomen pelvis 12/04/2016 FINDINGS: Lower chest: There is a small left pleural effusion with underlying atelectasis. Mild right atelecta sis is also seen. Liver: Hepatic steatosis is noted. The liver is enlarged measuring 19 cm in craniocaudal dimension. Gallbladder and biliary tree: Cholelithiasis is seen without evidence of cholecystitis. No intra- or extrahepatic biliary ductal dilation. Pancreas: Unremarkable, no focal lesions. Spleen: The spleen measures 17 centimeters in craniocaudal dimension. Adrenals: Unremarkable. Kidneys and ureters: Perinephric stranding is noted bilaterally. Bladder: Unremarkable. Reproductive organs: Unremarkable. Bowel: Unremarkable appearance of the bowel. The appendix is normal. There is a small hiatal hernia. Lymph nodes Retroperitoneal: Unremarkable. Pelvic: Unremarkable. Mesenteric: Unremarkable. Peritoneum: There is a moderate amount of free fluid in the pelvis as well as mild peritoneal fat str anding. A small locule of fluid is noted in the hiatal hernia. Vessels: Mild calcifications are seen. Extensive phleboliths are noted. Abdominal wall: A tiny fat-containing supraumbilical hernia is seen. Bones: Old healed rib fractures are seen on the right. Degenerative changes are seen in the spine. IMPRESSION: 1. Hepatic steatosis and hepatomegaly are again seen. Superimposed hepatitis cannot be excluded. 2. No hydronephrosis or obstructive stone is seen. 3. Small left pleural effusion with underlying left greater than right atelectasis. 4. Cholelithiasis without cholecystitis. ACT 112: Negative or not required by law. Electronically signed by: Cliff Dela Cruz M.D. 11/16/2021 7:48 PM
[2021-11-16] MEDS ORDERED: SODIUM CHLORIDE 0.9% 1000ML 1,000 ML IV SCH (20:30)
[2021-11-16] MEDS ORDERED: MULTI-VITAMIN INFUSION 10 ML, THIAMINE HCL 100 MG, FOLIC ACID 1 MG in SODIUM CHLORIDE 0... IV ONE (20:56)
[2021-11-16] MEDS ORDERED: PHYTONADIONE 5 MG in DEXTROSE 5% 50 ML IV ONE (21:30)
[2021-11-16 21:42] LABS: Alanine Aminotransferase 89 U/L (7-52); Albumin Level 2.4 gm/dl (3.4-5.0); Aspartate Aminotransferase 156 U/L (13-39); Bilirubin,Total 33.8 mg/dl (0.2-1.0); Total Protein 4.9 gm/dl (6.0-8.3)
[2021-11-16 21:42] LABS: Base Excess VBG 0.9 mEq/L; HCO3 VBG 24 mmol/L; Oxygen Saturation VBG 86.7 %; PCO2 VBG 33 mmHg (38-50); PO2 VBG 50 mmHg; pH VBG 7.47 (7.36-7.41)
[2021-11-16] MEDS: NOREPINEPHRINE/D5W 4 MG/250 ML IV ONE ×2 (21:45→23:41)
[2021-11-16] MEDS: NOREPINEPHRINE/D5W 4 MG/250 ML PLCT IV SCH (21:45)
[2021-11-16] MEDS ORDERED: STAT IV Infusion **Titration per Protocol STA (21:48)
[2021-11-16 21:52] LABS: Bilirubin Direct 20.7 mg/dl (0-0.2)
--- NOTE | 2021-11-16 23:28 | Critical Care Consultation ---
Date of Consultation November 16, 2021 Assessment & Plan (1) Acute alcoholic hepatitis: Reason Critically Ill: 51-year-old male presents to the ICU with acute alcoholic hepatitis and bilirubin of 33 with significant jaundice. Currently hypotensive with presumed hepatorenal syndrome on vasopressors. Neuro - [facility] ICU: Negative ASHLEY Sno symptoms of withdrawal at this time. Patient states that he has had symptoms of withdrawal in the past but has been weaning off alcohol over the past 2 weeks and only drinking beer since he began to become jaundiced. -Continue with ASHLEY S scale, Ativan as needed -Continue high-dose thiamine, folic acid, multivitamin -Received banana bag x1 in the ED -Monitor Cardiac - Hypotensionunknown etiology at this time directly related to sepsis versus hepatic disease -Continue with Levophed, for maps greater than 75 -Continue with albumin and IV fluid resuscitation -See ID for treatment of sepsis -H&H stable, no signs of bleeding at this time -Patient does have history of atrial fibrillation but is status post maze procedure as of 1 year ago. Not on anticoagulation Respiratory - Lungs clear to auscultation currently maintaining oxygen saturation on room air. No history of pulmonary disease. Chest x-ray without active disease. Monitor on continuous pulse ox for now GI - Clear liquid diet for now Lower GI bleed?Patient reports dark tarry stools. INR treated -Trend H&H for now -Gastroccult pending -IV Protonix twice daily Acute alcoholic hepatitispatient with elevated AST and ALT and bilirubin of 33, INR 1.8. Jaundiced on exam. Reports drinking 1/5 liquor daily but has recently switched to beer over the past 2 weeks -CT abdomen and pelvis with hepatomegaly and hepatic steatosis. Cholelithiasis without cholecystitis -Starting on N-acetylcysteine drip and IV steroids -Not candidate for transplant due to active drinking per [place] liver transplant service -Trend LFTs and INR RENAL/LYTES - AKIlikely from presumed hepatorenal syndrome but cannot rule out ATN secondary to hypotension/sepsis -Urinalysis pending -Maintain maps greater than 75 with vasopressor support -Continue IV fluid resuscitation, Normosol at 125. Continue albumin every 8 hours -Trend creatinine and monitor electrolytes. No acidosis on VBG -Avoid nephrotoxins renally adjust medications - Foleystrict I's and O's ENDO - No history of diabetes or thyroid disease, ICU hyperglycemic protocol HEME - Macrocytic anemiastable H&H but decreased hemoglobin of 12. No indication for transfusion at this time. Likely secondary to alcoholism with bone marrow suppression versus lower GI bleed. Elevated INRINR 1.8, secondary to liver disease. Given vitamin K 5 mg IV. No evidence of bleeding at this time -Trend twice daily. Monitor ID - Sepsis?Patient may have possible SBP and started on ceftriaxone. No leukocytosis or fevers but generalized abdominal tenderness on exam and slightly elevated Pro-Cliff -Blood cultures and urine culture pending, consider paracentesis for sample? -Continue ceftriaxone for now LINES/IV ACCESS - Right IJ CVC DVT PROPHYLAXIS - SCDs, hold anticoagulation for elevated INR I have personally spent 55 minutes of critical care time in the direct management of this patient. This is a life/limb threatening event. This includes time spent evaluating patient, direct bedside care, chart review, placing orders, interpretation of diagnostic studies, discussion with consultants, patient, and family members, as well as other required patient management activities. This time is exclusive of all separately billable procedures, and teaching time and separate from and in addition to any other critical care service time. Thank you for allowing us to participate in the care of this patient. Please refer to my attending physician's documentation for any further recommendations. (2) Hepatorenal syndrome: (3) Sepsis: (4) Hypotension: (5) Jaundice due to hepatitis: (6) HEENA (acute kidney injury): (7) Afib: History of Present Illness Attending Physician: Carmine Abraham MD History of Present Illness Patient is a 51-year-old male with past medical history A. fib (Status post maze procedure), HTN, GERD, and significant history of alcohol abuse. Patient stated that he usually drinks 1/5 of liquor per day but has reduced over the past 2 weeks as he has not been feeling well and has been experiencing jaundice. Patient was seen in clinic earlier today by PA who advised him to come to the emergency department. Patient reports that he has been having lower back pain for the past 2 weeks and intermittent swelling in his lower extremities. He also reports shortness of breath and dizziness when standing. He also reported taking Tylenol for lower back pain. In the emergency department he was found to have bilirubin of 33 and elevated AST and ALT. CT abdomen and pelvis with hepatic steatosis and hepatomegaly, without evidence of obstructive process. Patient was also noted to have elevated creatinine of 3.0 and thought to have hepatorenal syndrome. Liver service at [place] was contacted but did not recommend transfer as he is not a candidate for liver transplant due to active drinking. His last drink was 1 beer today. He is started on Levophed and albumin for hepatorenal syndrome, NAC and steroids for acute alcoholic hepatitis. Blood and urine cultures pending and started on empiric ceftriaxone for possible SBP. Admitting to ICU for further management at this time. Allergies Allergy/AdvReac Type Severity Reaction Status Date / Time No Known Allergies Allergy Unverified 11/16/21 21:13 Home Medications Medication Instructions Recorded Confirmed Type carvedilol 12.5 mg tablet 12.5 mg PO DAILY 02/15/21 11/16/21 History omeprazole 20 mg capsule,delayed 20 mg PO DAILY 02/15/21 11/16/21 History release Patient History Medical History (Updated 11/17/21 @ 02:06 by SLADE Prater) A-fib Alcohol abuse Cardiomyopathy History of cardioversion No pertinent family history Surgical History H/O maze procedure Social History (Updated 11/16/21 @ 20:31 by Jose Charles) Smoking Status: Never smoker Hx Alcohol Use: Yes Alcohol type: beer and hard liquor Alcohol type Comment: 1/5 of alcohol a day Hx Substance Use: No Preferred Language: Senegalese Communication Ability: Effective Supervisor Harvesting Required: No Beliefs That Will Affect Care: None Current Living Situation: Significant Other Feels Safe at Home: Yes Safety Concerns: Feels Safe At This Time Assistive Devices: None Review of Systems Review of Systems: All systems reviewed & are unremarkable except as noted in HPI & below Physical Exam Constitutional: cooperative and comfortable Eyes: + scleral abnormality (Jaundiced) and PERRL ENMT: external ear and nose normal, oropharynx normal Neck: trachea midline, no thyromegaly Respiratory: normal respiratory effort, lungs clear to auscultation Cardiovascular: Rate/Rhythm: regular rate and + tachycardic Heart Sounds: normal S1 and normal S2 Extremities: + edema (Bilateral lower extremity) Gastrointestinal (Abdomen): Abdominal round, distention and generalized tenderness, normal bowel sounds Skin: + jaundice and + purpura Neurologic: PERRL, EOMI, accommodation nl, no face palsy, no dysarthria Psychiatric: A+Ox3, euthymic affect Genitourinary: Indwelling Dozier catheter Results & Data Results & Data ([facility]) Vital Signs (Past 12 Hours) Vital Signs Temp Pulse Resp BP Pulse Ox O2 Del Method 11/16/21 23:00 116 H 20 11/16/21 23:00 99/66 L 11/16/21 22:45 115 H 26 H 91 11/16/21 22:45 96/69 L 11/16/21 22:30 117 H 22 11/16/21 22:30 106/70 11/16/21 22:23 99/70 L 11/16/21 22:23 113 H 23 94 11/16/21 22:15 111 H 28 H 11/16/21 22:15 90/65 L 11/16/21 22:00 119 H 31 H 103/72 95 11/16/21 21:45 115 H 20 93 11/16/21 21:45 120/74 11/16/21 21:30 124 H 20 11/16/21 21:15 129 H 21 11/16/21 21:15 94/65 L 11/16/21 21:09 111/58 L 11/16/21 21:09 116 H 24 94 11/16/21 21:00 120 H 24 11/16/21 21:00 87/61 L 11/16/21 20:54 97/62 L 11/16/21 20:54 118 H 22 11/16/21 20:45 119 H 26 H 11/16/21 20:45 87/62 L 11/16/21 20:35 94/67 L 11/16/21 20:35 120 H 23 95 11/16/21 20:30 120 H 24 95 11/16/21 20:30 95/66 L 11/16/21 20:26 82/65 L 11/16/21 20:26 114 H 20 92 11/16/21 20:15 129 H 22 95 11/16/21 20:15 105/74 11/16/21 20:00 116 H 24 94 11/16/21 20:00 100/69 11/16/21 17:16 94 Room Air 11/16/21 19:50 123 H 23 94 11/16/21 19:45 129 H 23 94 11/16/21 19:45 98/68 L 11/16/21 19:44 94/69 L 11/16/21 19:44 124 H 20 94 11/16/21 19:40 124 H 23 94 11/16/21 19:30 130 H 23 95 11/16/21 19:30 93/68 L 11/16/21 19:26 95 11/16/21 19:26 99/69 L 11/16/21 19:10 129 H 22 11/16/21 19:00 129 H 22 11/16/21 18:50 129 H 27 H 11/16/21 18:40 129 H 22 11/16/21 18:30 129 H 22 11/16/21 18:30 91/59 L 11/16/21 18:20 128 H 16 11/16/21 18:10 130 H 22 95 11/16/21 18:00 130 H 24 95 11/16/21 18:00 93/62 L 11/16/21 17:50 130 H 27 H 96 11/16/21 17:49 131 H 26 H 97 11/16/21 17:14 36.4 C L 131 H 16 91/61 L 97 Room Air Coding Level of Care Code Critical Care 1st 30-74 mins Diagnoses Acute alcoholic hepatitis K70.10 Hepatorenal syndrome K76.7 Sepsis A41.9 Hypotension I95.9 Jaundice due to hepatitis K75.9 HEENA (acute kidney injury) N17.9 Afib I48.91
--- NOTE | 2021-11-16 23:28 | Procedure Note ---
Procedure Note Date of Service November 16, 2021 Note INTERNAL JUGULAR CENTRAL LINE PROCEDURE NOTE: Procedure: Internal Jugular Central Line Placement Attending: Dr. Beauchamp Provider: SLADE Harding Indication: Central Drug Administration, Poor Venous Access, Multiple Lab Draws Necessary, etc. Anesthesia: Lidocaine 1% Consent was signed and placed on the chart prior to procedure. Indication, risks, and benefits were explained at length. A time-out was completed verifying correct patient, procedure, site, positioning, and implants(s) or special equipment if applicable. Patients right neck was cleansed and draped in the typical sterile fashion using Chloraprep. The Internal Jugular Vein and Carotid Artery were identified using ultrasound. The superficial tissue was anesthetized using 3 mL of 1% lidocaine without epinephrine under direct visualization with the ultrasound. After adequate anesthetization was achieved, the Internal Jugular vein was cannulated under direct ultrasound guidance using an introducer needle on a syringe. Good venous blood return was maintained prior to removal of syringe from introducer needle. Using Seldinger Technique, a guide wire was advanced through the introducer needle without resistance. The introducer needle was removed and ultrasound images were obtained of the guide wire within the Internal Jugular Vein and saved to the patients medical record. A small incision was made in penetrating fashion at the guide wire insertion site utilizing an 11 blade scalpel. The dilator was advanced to the vessel without resistance. The dilator was exchanged for the triple lumen catheter which was advanced into the vessel without resis tance. The guide wire was removed intact from the catheter without issue. Claves were placed on each catheter tip with confirmation of good blood flow from each lumen. Each port was easily flushed with sterile saline. The catheter was placed at 17 [address] in place. BioPatch was applied to the catheter and a sterile Tegaderm dressing was applied over the catheter with careful attention to sterility. Patient tolerated procedure well. No immediate complications were met. Post procedure x-ray was completed, placement was appropriate and no pneumothorax was noted. Images obtained are saved for permanent record Procedural Ultrasound Guidance: Procedure Date: 11/16/2021 Indication: Central venous catheter insertion Attending: Dr. Beauchamp Provider: SLADE Harding Artery AND Vein visualized: Yes Compressible Vein: Yes Guidewire or Short Catheter seen in vein prior to dilation: Yes Line confirmed in Vein with ultrasound: Yes Images obtained are saved for permanent record. Coding CPT Codes Tubes, Drains, and Vasc Access - Tubes, Drains, and Vasc Access: [id number] Place catheter in vein superior or inferior vena cava ([id number]) Tubes, Drains, and Vasc Access - Tubes, Drains, and Vasc Access: [id number] Ultrasound Guidance For Vascular ([id number]) [facility] Procedure Codes (Charges) Tubes, Drains, and Vasc Access Procedure 1: Tubes, Drains, and Vasc Access: [id number] Place catheter in vein superior or inferior vena cava Procedure 2: Tubes, Drains, and Vasc Access: [id number] Ultrasound Guidance For Vascular
[2021-11-16] MEDS ORDERED: ICU PROTOCOL FOR HYPERGLYCEMIA PRN (23:39)
[2021-11-17] MEDS ORDERED: AcetylCYSTEINE 15,000 MG in DEXTROSE 5% 200 ML IV ONE
[2021-11-17] MEDS ORDERED: CEFEPIME 2,000 MG in SYRINGE 0 ML IV SCH
[2021-11-17] MEDS: PANTOprazole 40 MG in SYRINGE 0 ML IV SCH ×2 (00:17→08:48)
[2021-11-17] MEDS: METHYLPREDNISOLONE IV SCH ×2 (00:20→08:48)
[2021-11-17] MEDS ORDERED: Ativan IV Alcohol Withdrawal--Active Protocol IV PRN (00:22)
[2021-11-17] MEDS ORDERED: LORazepam 3 MG in SYRINGE 1.5 ML IV PRN (00:22)
[2021-11-17] MEDS ORDERED: LORazepam 1 MG in SYRINGE 0.5 ML IV PRN (00:22)
[2021-11-17] MEDS ORDERED: AcetylCYSTEINE 5,000 MG in DEXTROSE 5% 500 ML IV ONE (01:30)
[2021-11-17] MEDS: NORMOSOL-R 1,000 ML IV SCH ×2 (01:32→07:54)
[2021-11-17 01:40] LABS: Folate (Folic Acid) 4.3 ng/ml (>5.38)
[2021-11-17] MEDS: ALBUMIN 25% 100 mL 25 GM/100 ML VIAL IV SCH ×4 (01:40→18:15)
[2021-11-17] MEDS: THIAMINE HCL 500 MG in SODIUM CHLORIDE 0.9% 50 ML IV SCH ×3 (01:46→17:01)
[2021-11-17 02:58] LABS: Appearance Urine Slightly Cloudy (Clear); Color Urine Brown; Specific Gravity Urine 1.021 (1.000-1.030)
[2021-11-17 03:00] LABS: Epithelial Cell Urine >30 /lpf (0-5); RBC Urine 0-4 /hpf (0-4)
[2021-11-17 03:02] LABS: Bacteria Urine 1+ (Negative)
--- NOTE | 2021-11-17 05:37 | History and Physical Report ---
DATE OF ADMISSION: 11/16/2021. CHIEF COMPLAINT: Abdominal and back pain and jaundice. HISTORY OF PRESENT ILLNESS: A 51-year-old male with past medical history significant for AFib, status post maze procedure, hypertension, GERD, history of alcohol abuse, presents with jaundice and abdominal and back pain. The patient's girlfriend in the room . She says he used to drink one fifth of liquor per day but for the last 2 weeks, he is mostly bedbound. He started getting yellow, which progressively got worse, he is not able to get up from bed much, not drinking much because he is feeling significantly sick. He had 1 beer today and he is also taking Tylenol 2 tablets a day for his back pain. As he is not getting better, came to the ER. He also reports some shortness of breath and cough with yellow sputum for 1 week, having some dizziness on standing. In the ER, his labs showed platelets of 115, sodium of 126, creatinine of 3, total bilirubin of 33, direct bilirubin of 20, AST 156, ALT 89. Procalcitonin 1.79. Ethyl alcohol 11.6. CT abdomen and pelvis was done showing hepatic steatosis and hepatomegaly. No hydronephrosis or obstructing stone was seen. Cholelithiasis without cholecystitis. The patient was also having tachycardia and hypotension in the ER, he was requiring pressors. Also given d cefepime, and fluids. ER talked with GI and GI was advised to transfer to [facility] as MELD score is high though GI was skeptical about acceptance for transfer as he still drinking. The ER called the [facility] , but they wanted to observe first in the hospital, they thought it will be most likely alcoholic hepatitis and wanted to check his INR b.i.d. and if the INR is getting worse or getting confused can transfer. The patient is alert, awake, and oriented. Denies any headache, no chest pain. Currently, no nausea or vomiting. Denies any diarrhea. He says he had a small amount of bloody bowel movement about a few days ago and attributes it to his hemorrhoids. Normal bladder movements. Denies any abdominal pain. Denies any fevers. ALLERGIES: No known drug allergies. PAST MEDICAL HISTORY: As mentioned above. PAST SURGICAL HISTORY: No surgical history on file. MEDICATIONS: The patient states he is only taking Coreg 12.5 mg p.o. daily, and omeprazole 20 mg p.o. daily. FAMILY HISTORY: No family history on file. SOCIAL HISTORY: Currently living alone, girlfriend checks on him. No smoking. Alcohol, he used to drink one fifth of alcohol every day, currently from last 2 weeks, he has cut down . No drug use as per [facility]. REVIEW OF SYSTEMS: As per HPI. Rest of the review of systems is negative. PHYSICAL EXAMINATION: GENERAL: The patient is alert, awake, and oriented x3. HEENT: No scleral icterus present. Pupils equal, round and reactive to light. Oral mucosa moist. NECK: No JVD or neck masses. CARDIOVASCULAR: S1 and S2 heard. Regular rate and rhythm. No murmur, no gallop. RESPIRATORY SYSTEM: Normal AP diameter. No accessory muscle use. No wheezing, no crackles. ABDOMEN: Somewhat tense. Mild discomfort on palpation. Bowel sounds present. CENTRAL NERVOUS SYSTEM: Alert and oriented x3. No facial droop. Speech is clear. Obeys commands. Insight is okay. Moves extremities. EXTREMITIES: Mild pedal edema present. SKIN: Yellowish discoloration. LABORATORY DATA: WBC 9, hemoglobin 12.5, hematocrit 35.2, platelets 115. PT 18.4, INR 1.8, APTT 38.5. Venous blood gas, pH of 7.47, pCO2 of 33, pO2 of 50, . Sodium 126, potassium 3.7, chloride 99, CO2 of 24, creatinine 3, calcium 9.5, total bilirubin 33.8, direct bilirubin 20.7, AST 156, ALT 89. Procalcitonin 1.79. Ethyl alcohol 11.6. COVID negative. IMAGING DATA: Chest x-ray: Cardiomegaly with mild pulmonary vascular congestion, no evidence of airspace opacities to suggest pneumonia, atelectasis in the left lung base. CT of abdomen and pelvis without contrast, hepatic steatosis and hepatomegaly. Superimposed hepatitis cannot be excluded. No hydronephrosis or obstructing stone is seen. Small left pleural effusion with underlying left greater than right atelectasis, cholelithiasis without cholecystitis. EKG: Sinus tachycardia with short WI at a rate of 131. Nonspecific ST abnormalities. ASSESSMENT AND PLAN: A 51-year-old male with alcohol abuse presents with jaundice and also hypotension and tachycardia. 1. Possible sepsis with hypotension, tachycardia. Start Levophed drip, cefepime. Follow the cultures.Procalcitonin 1.79, he will monitor in the ICU.Appreciate critical care help. 2. Possible alcoholic hepatitis. Total bilirubin 33.8, direct bilirubin 20.7, AST 156, ALT 89. Recently was taking Tylenol for his back pain. ICU started him on steroids and also N acetylcysteine. We will follow the repeat labs. GI consulted. 3. Alcoholism. Start him on Ativan protocol and IV thiamine. Received banana bag. 4. Possible GI bleed. The patient on Protonix. Received IV vitamin K, as INR is 1.8. GI consulted. 5. Hyponatremia, sodium 126. Probably from his alcoholism. Getting fluids. Repeat labs in the a.m. Nephrology consulted. 6. Acute kidney injury. Possible hepatorenal syndrome with creatinine 3, getting fluids. Follow repeat labs. Nephro consulted. 7. History of atrial fibrillation, currently hypotensive, on Levophed drip. He is taking only Coreg, not taking any blood thinner currently. 8. Deep venous thrombosis prophylaxis: Sequential compression devices for now. DISPOSITION: Closely monitor in the ICU. Level 1 full code. Job ID: [id number] [facility]
[2021-11-17 06:00] LABS: Basophils # (auto) 0.02 K/uL (0-0.2); Basophils % (auto) 0.2 %; Eosinophils # (auto) 0.07 K/uL (0-0.50); Eosinophils % (auto) 0.7 %; Hematocrit (blood only) 28.8 % (40.1-51.0); Hemoglobin 10.3 g/dl (14.0-18.0); Immature Granulocytes # (auto) 0.26 K/uL (0.00-0.02); Immature Granulocytes % (auto) 2.7 %; Lymphocytes # (auto) 0.61 K/uL (1.2-3.4); Lymphocytes % (auto) 6.3 %; Mean Corpuscular Hemoglobin 35.6 pg (25.0-34.0); Mean Corpuscular Hgb Conc 35.8 g/dL (32.0-36.0); Mean Corpuscular Volume 99.7 fL (80.0-100.0); Mean Platelet Volume 11.3 fL (9.4-12.4); Monocytes # (auto) 0.76 K/uL (0.24-0.82); Monocytes % (auto) 7.8 %; Neutrophils # (auto) 7.98 K/uL (1.4-6.5); Neutrophils % (auto) 82.3 %; Nucleated RBC # (auto) 0.09 K/uL (0-0); Nucleated RBC % (auto) 0.9 %; Platelet Count 108 K/uL (130-400); RDW Coefficient of Variation 15.6 % (11.5-14.5); RDW Standard Deviation 55.8 fL (36.4-46.3); Red Blood Count 2.89 M/uL (4.63-6.08); Reticulocyte % 2.1 % (0.5-2.0); Reticulocytes # 0.06 10^6/uL (0.02-0.10)
[2021-11-17] MEDS ORDERED: AcetylCYSTEINE 10,000 MG in DEXTROSE 5% 1,000 ML IV ONE (06:00)
--- NOTE | 2021-11-17 06:35 | Ultrasound Report ---
BILATERAL LOWER EXTREMITY VENOUS DOPPLER HISTORY: Acute pain and swelling of the right lower leg lower extremity swelling COMPARISON STUDY: None. FINDINGS: There is normal compressibility, flow, and augmentation within the bilateral lower extremit y deep venous systems. IMPRESSION: No DVT within the right or left lower extremity. ACT 112: Negative or not required by law. Electronically signed by: Keo Roque M.D. 11/17/2021 6:33 AM
[2021-11-17 07:12] LABS: Blood Urea Nitrogen 37 mg/dl (6-23); Magnesium 2.2 mg/dl (1.7-2.4)
[2021-11-17 07:13] LABS: Alanine Aminotransferase 87 U/L (7-52); Anion Gap 14 (3-11); Aspartate Aminotransferase 134 U/L (13-39); Calcium 8.2 mg/dl (8.5-10.1); Carbon Dioxide 22 mmol/L (21-32); Chloride 91 mmol/L (98-107); Glucose 186 mg/dl (70-99(Fasting)); Potassium 3.6 mmol/L (3.5-5.1); Sodium 127 mmol/L (136-145)
[2021-11-17 07:14] LABS: Albumin Level 2.6 gm/dl (3.4-5.0); Bilirubin,Total 35.5 mg/dl (0.2-1.0); Iron 101 mcg/dl (35-175); Phosphorus 1.1 mg/dl (2.5-4.9); Total Protein 5.1 gm/dl (6.0-8.3); Transferrin < 95 mg/dl (200-360)
[2021-11-17] MEDS ORDERED: POTASSIUM PHOS 3 MMOL/1 ML INFUSION IV STA (07:17)
[2021-11-17] MEDS ORDERED: POTASSIUM PHOSPHATE 21 MMOL in SODIUM CHLORIDE 0.9% 500 ML IV ONE (08:00)
[2021-11-17] MEDS ORDERED: SURGICEL ABSORB HEMOSTAT 2IN X 14IN TOP ONE (08:22)
[2021-11-17 08:30] LABS: Bilirubin Direct 20.8 mg/dl (0-0.2)
--- NOTE | 2021-11-17 08:32 | Critical Care Progress Note ---
Date of Service November 17, 2021 Assessment & Plan (1) Acute alcoholic hepatitis: Plan: Reason Critically Ill: 51-year-old male presents to the ICU with acute alcoholic hepatitis and bilirubin of 33 with significant jaundice. Currently hypotensive with presumed hepatorenal syndrome on vasopressors. Neuro - [facility] ICU: Negative ASHLEY Sno symptoms of withdrawal at this time. Patient states that he has had symptoms of withdrawal in the past but has been weaning off alcohol over the past 2 weeks and only drinking beer since he began to become jaundiced. -Continue with ASHLEY S scale, Ativan as needed -Continue high-dose thiamine, folic acid, multivitamin -Received banana bag x1 in the ED -Monitor Cardiac - Hypotensionunknown etiology at this time directly related to sepsis versus hepatic disease -Continue with Levophed, for maps greater than 65 -Continue with albumin and IV fluid resuscitation -See ID for treatment of sepsis -Patient does have history of atrial fibrillation but is status post maze procedure as of 1 year ago. Not on anticoagulation Respiratory - Lungs clear to auscultation currently maintaining oxygen saturation on room air. No history of pulmonary disease. Chest x-ray without active disease. Monitor on continuous pulse ox for now GI - Clear liquid diet for now Lower GI bleed?Patient reports dark tarry stools. INR treated -Trend H&H for now -GI consulted for concern of upper GI bleed. -IV Protonix twice daily Acute alcoholic hepatitispatient with elevated AST and ALT and bilirubin of 33, INR 1.8. Jaundiced on exam. Reports drinking 1/5 liquor daily but has recently switched to beer over the past 2 weeks -CT abdomen and pelvis with hepatomegaly and hepatic steatosis. Cholelithiasis without cholecystitis -Continue N-acetylcysteine drip and IV steroids -Not candidate for transplant due to active drinking per [facility] service -Trend LFTs and INR RENAL/LYTES - AKIlikely from presumed hepatorenal syndrome but cannot rule out ATN secondary to hypotension/sepsis -Urinalysis difficult to interpret due to high bilirubin -Maintain maps greater than 65 with vasopressor support -Continue IV fluid resuscitation, Normosol at 125. Continue albumin every 8 hours -Trend creatinine and monitor electrolytes. No acidosis on VBG -Avoid nephrotoxins renally adjust medications - Foleystrict I's and O's ENDO - No history of diabetes or thyroid disease, ICU hyperglycemic protocol HEME - Patient with worsening anemia likely due to hemodilution. Check fibrinogen level to evaluate for DIC. Low threshold for additional blood products. INR elevated likely due to coagulopathy from liver failure. Vitamin K given earlier. ID - Sepsis?Patient may have possible SBP and started on ceftriaxone. No leukocytosis or fevers but generalized abdominal tenderness on exam and slightly elevated Pro-Cliff -Blood cultures and urine culture pending -Continue ceftriaxone for now LINES/IV ACCESS - Right IJ CVC DVT PROPHYLAXIS - SCDs, hold anticoagulation for elevated INR I have personally spent 35 minutes of critical care time in the direct management of this patient. This is a life/limb threatening event. This includes time spent evaluating patient, direct bedside care, chart review, placing orders, interpretation of diagnostic studies, discussion with consultants, patient, and family members, as well as other required patient management activities. This time is exclusive of all separately billable procedures, and teaching time and separate from and in addition to any other critical care service time. (2) Hepatorenal syndrome: (3) Sepsis: (4) Hypotension: (5) Jaundice due to hepatitis: (6) HEENA (acute kidney injury): (7) Afib: Admission and Anticipated Discharge Date Admission Date: November 16, 2021 Subjective Patient seen and examined this morning. He is having some oozing blood from around the right IJ site. He does complain of some abdominal pain. He is requiring low-dose Levophed. He is currently saturating 93% on room air, but does complain of shortness of breath. Review of Systems Review of Systems: All systems reviewed & are unremarkable except as noted in HPI & below Physical Exam Constitutional: cooperative and comfortable Eyes: + scleral abnormality (Jaundiced) and PERRL ENMT: external ear and nose normal, oropharynx normal Neck: trachea midline, no thyromegaly Respiratory: normal respiratory effort, lungs clear to auscultation Cardiovascular: Rate/Rhythm: regular rate and + tachycardic Heart Sounds: normal S1 and normal S2 Extremities: + edema (Bilateral lower extremity) Gastrointestinal (Abdomen): Abdominal round, distention and generalized tenderness, normal bowel sounds Skin: + jaundice and + purpura Bleeding noted from the around the IJ central line. Surgicel applied. Neurologic: PERRL, EOMI, accommodation nl, no face palsy, no dysarthria Psychiatric: A+Ox3, euthymic affect Genitourinary: Indwelling Dozier catheter Results & Data Results & Data ([facility]) Vital Signs (Past 12 Hours) Vital Signs Temp Pulse Pulse Resp BP BP Pulse Ox 11/17/21 05:00 119 H 25 H 93 11/17/21 05:00 110/82 11/17/21 04:30 131 H 22 129/89 94 11/17/21 04:00 36.9 C 121 H 21 114/77 93 11/17/21 03:30 131 H 18 125/85 92 11/17/21 03:00 131 H 19 112/79 92 11/17/21 02:30 131 H 21 115/84 92 11/17/21 02:37 129 H 11/17/21 02:00 130 H 24 93 11/17/21 02:00 117/77 11/17/21 01:45 130 H 23 92 11/17/21 01:30 130 H 23 93 11/17/21 01:30 107/76 11/17/21 01:15 129 H 35 H 91 11/17/21 01:00 129 H 18 96 11/17/21 01:00 121/82 11/17/21 00:45 129 H 37 H 84 L 11/17/21 00:30 130 H 23 92 11/17/21 00:30 107/75 11/17/21 00:15 130 H 23 93 11/17/21 00:00 124 H 27 H 93 11/17/21 00:00 102/72 11/16/21 23:45 130 H 28 H 93 11/16/21 23:36 104/80 11/16/21 23:36 130 H 21 91 11/16/21 23:31 120 H 6 L 11/16/21 23:15 114 H 18 11/16/21 23:15 80/62 L 11/16/21 23:51 36.8 C 131 H 24 104/80 92 11/16/21 23:39 11/16/21 23:00 116 H 20 11/16/21 23:00 99/66 L 11/16/21 22:45 115 H 26 H 91 11/16/21 22:45 96/69 L 11/16/21 22:30 117 H 22 11/16/21 22:30 106/70 11/16/21 22:23 99/70 L 11/16/21 22:23 113 H 23 94 11/16/21 22:15 111 H 28 H 11/16/21 22:15 90/65 L 11/16/21 22:00 119 H 31 H 103/72 95 11/16/21 21:45 115 H 20 93 11/16/21 21:45 120/74 11/16/21 21:30 124 H 20 11/16/21 21:15 129 H 21 11/16/21 21:15 94/65 L 11/16/21 21:09 111/58 L 11/16/21 21:09 116 H 24 94 11/16/21 21:00 120 H 24 11/16/21 21:00 87/61 L 11/16/21 20:54 97/62 L 11/16/21 20:54 118 H 22 11/16/21 20:45 119 H 26 H 11/16/21 20:45 87/62 L 11/16/21 20:35 94/67 L 11/16/21 20:35 120 H 23 95 11/16/21 20:30 120 H 24 95 11/16/21 20:30 95/66 L Pulse Ox O2 Del Method O2 Del Method 11/17/21 05:00 11/17/21 05:00 11/17/21 04:30 Room Air 11/17/21 04:00 Room Air 11/17/21 03:30 Room Air 11/17/21 03:00 Room Air 11/17/21 02:30 Room Air 11/17/21 02:37 11/17/21 02:00 11/17/21 02:00 11/17/21 01:45 11/17/21 01:30 11/17/21 01:30 11/17/21 01:15 11/17/21 01:00 11/17/21 01:00 11/17/21 00:45 11/17/21 00:30 11/17/21 00:30 11/17/21 00:15 11/17/21 00:00 11/17/21 00:00 11/16/21 23:45 11/16/21 23:36 11/16/21 23:36 11/16/21 23:31 11/16/21 23:15 11/16/21 23:15 11/16/21 23:51 Room Air 11/16/21 23:39 92 Room Air 11/16/21 23:00 11/16/21 23:00 11/16/21 22:45 11/16/21 22:45 11/16/21 22:30 11/16/21 22:30 11/16/21 22:23 11/16/21 22:23 11/16/21 22:15 11/16/21 22:15 11/16/21 22:00 11/16/21 21:45 11/16/21 21:45 11/16/21 21:30 11/16/21 21:15 11/16/21 21:15 11/16/21 21:09 11/16/21 21:09 11/16/21 21:00 11/16/21 21:00 11/16/21 20:54 11/16/21 20:54 11/16/21 20:45 11/16/21 20:45 11/16/21 20:35 11/16/21 20:35 11/16/21 20:30 11/16/21 20:30 Coding Level of Care Code Critical Care 1st 30-74 mins Diagnoses Acute alcoholic hepatitis K70.10 Hepatorenal syndrome K76.7 Sepsis A41.9 Hypotension I95.9 Jaundice due to hepatitis K75.9 HEENA (acute kidney injury) N17.9 Afib I48.91
[2021-11-17] MEDS: FOLIC ACID 1 MG in SYRINGE 9.8 ML IV SCH (08:48)
--- NOTE | 2021-11-17 08:51 | Hospitalist Progress Note ---
Date of Service November 17, 2021 Assessment & Plan (1) Acute alcoholic hepatitis: (2) Alcohol abuse: (3) Hypotension: (4) Jaundice due to hepatitis: Plan: A 51-year-old male with alcohol abuse presents with jaundice and also hypotension and tachycardia. 1. Possible sepsis with hypotension, tachycardia. Started Levophed drip on admission, currently off pressors Cefepime on admission -> now on ceftriaxone (possible SBP) Follow the cultures.Procalcitonin 1.79, he will be monitor in the ICU. 2. Possible alcoholic hepatitis. Total bilirubin 33.8, direct bilirubin 20.7, AST 156, ALT 89. Recently was taking Tylenol for his back pain. ICU started him on steroids and also N acetylcysteine. We will follow the repeat labs. GI consulted - cont. 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 The Z line was irregular. There was mild portal gastropathy in the fundus and body. There was a small amount of bilious fluid in the stomach. The antrum was normal. The duodenum was normal. There was contact oozing. Per GI: We are also consulted for alc hep. His Na is 127, Bili 39 --> 33, INR 1.8--> 2, creat 3.0 His DF is 76, MELD is 37. Blood and urine cx pending. He has been receiving NAC and solumederol for alc hep; He is on albumin, octreotide, and now midodrine with borderline uop. RECS: Diet as tolerated, follow hgb. Once daily oral PPI. Cont NAC protocol, prednisone for alc hep. Lille score at day 4. Uls with doppler, consider MRCP tomorrow. Елена, follow uop. Cont midodrine to support MAP, octreotide, and albumin infusions. Please consider renal consult. Please order echo. Prognosis guarded. He has been denied for transfer [place] [facility]. I spoke to Dr. Cunningham at [facility] for possible transfer - Phone number for transfer center [phone]. They are awaiting records, to eval for possibility of transfer -- would ask primary service to follow up. 3. Alcoholism. Start him on Ativan protocol and IV thiamine. Received banana bag. Further care per ICU. 4. Possible GI bleed. The patient on Protonix. Received IV vitamin K, as INR is 1.8. GI consulted. Underwent EGD as above. 5. Hyponatremia, sodium 126. Probably from his alcoholism. Getting fluids. Nephrology consulted. 6. Acute kidney injury. Possible hepatorenal syndrome with creatinine 3, ge tting fluids. Follow repeat labs. Nephrology consulted. 7. History of atrial fibrillation s/p MAZE. On admission hypotensive, on Levophed drip. He is taking only Coreg, not taking any blood thinner currently. Developed Afib w/ RVR earlier today. Care per ICU team. DVT prophylaxis: Sequential compression devices for now. DISPOSITION: Closely monitor in the ICU. FULL CODE Admission and Anticipated Discharge Date Admission Date: November 16, 2021 Subjective Patient seen in follow-up of jaundice, weakness, treated for alcohol hepatitis On admission found to have bilirubin of 39/33, creatinine of 3 Patient was admitted to ICU Initially tried to transfer patient to [facility] however due to ongoing alcohol use, patient not a candidate for transplant Given hypotension, patient required pressors, currently off pressors He currently has some bleeding from his right IJ site He is awake alert oriented answering questions, currently on supplemental oxygen Family at the bedside Patient reports feeling better than in previous days He underwent EGD today with GI service Per GI - tried to transfer to [facility] Patient denies any chest pain, has some abdominal discomfort. Denies difficulty breathing. Despite being on supplemental oxygen right now. Denies fevers chills. Review of Systems Review of Systems: All systems reviewed & are unremarkable except as noted in Subjective Physical Exam Physical Exam: GENERAL: The patient is alert, awake, and oriented x3. on 4L O2 HEENT: +scleral icterus present. Pupils equal, round and reactive to light. Oral mucosa moist. NECK: R IJ placed (bleeding a the site noted) CARDIOVASCULAR: + tachycardic RESPIRATORY : Normal AP diameter. No accessory muscle use. CTAB ABDOMEN: Somewhat tense. Mild discomfort on palpation. Bowel sounds present. NEURO: Alert and oriented x3. No facial droop. Speech is clear. Obeys commands. Moves extremities. EXTREMITIES: Mild pedal edema present. SKIN: jaundiced Results & Data Results & Data ([facility]) Vital Signs (Past 12 Hours) Vital Signs Temp Pulse Pulse Resp BP BP Pulse Ox 11/17/21 05:00 119 H 25 H 93 11/17/21 05:00 110/82 11/17/21 04:30 131 H 22 129/89 94 11/17/21 04:00 36.9 C 121 H 21 114/77 93 11/17/21 03:30 131 H 18 125/85 92 11/17/21 03:00 131 H 19 112/79 92 11/17/21 02:30 131 H 21 115/84 92 11/17/21 02:37 129 H 11/17/21 02:00 130 H 24 93 11/17/21 02:00 117/77 11/17/21 01:45 130 H 23 92 11/17/21 01:30 130 H 23 93 11/17/21 01:30 107/76 11/17/21 01:15 129 H 35 H 91 11/17/21 01:00 129 H 18 96 11/17/21 01:00 121/82 11/17/21 00:45 129 H 37 H 84 L 11/17/21 00:30 130 H 23 92 11/17/21 00:30 107/75 11/17/21 00:15 130 H 23 93 11/17/21 00:00 124 H 27 H 93 11/17/21 00:00 102/72 11/16/21 23:45 130 H 28 H 93 11/16/21 23:36 104/80 11/16/21 23:36 130 H 21 91 11/16/21 23:31 120 H 6 L 11/16/21 23:15 114 H 18 11/16/21 23:15 80/62 L 11/16/21 23:51 36.8 C 131 H 24 104/80 92 11/16/21 23:39 11/16/21 23:00 116 H 20 11/16/21 23:00 99/66 L 11/16/21 22:45 115 H 26 H 91 11/16/21 22:45 96/69 L 11/16/21 22:30 117 H 22 11/16/21 22:30 106/70 11/16/21 22:23 99/70 L 11/16/21 22:23 113 H 23 94 11/16/21 22:15 111 H 28 H 11/16/21 22:15 90/65 L 11/16/21 22:00 119 H 31 H 103/72 95 11/16/21 21:45 115 H 20 93 11/16/21 21:45 120/74 11/16/21 21:30 124 H 20 11/16/21 21:15 129 H 21 11/16/21 21:15 94/65 L 11/16/21 21:09 111/58 L 11/16/21 21:09 116 H 24 94 11/16/21 21:00 120 H 24 11/16/21 21:00 87/61 L 11/16/21 20:54 97/62 L 11/16/21 20:54 118 H 22 Pulse Ox O2 Del Method O2 Del Method 11/17/21 05:00 11/17/21 05:00 11/17/21 04:30 Room Air 11/17/21 04:00 Room Air 11/17/21 03:30 Room Air 11/17/21 03:00 Room Air 11/17/21 02:30 Room Air 11/17/21 02:37 11/17/21 02:00 11/17/21 02:00 11/17/21 01:45 11/17/21 01:30 11/17/21 01:30 11/17/21 01:15 11/17/21 01:00 11/17/21 01:00 11/17/21 00:45 11/17/21 00:30 11/17/21 00:30 11/17/21 00:15 11/17/21 00:00 11/17/21 00:00 11/16/21 23:45 11/16/21 23:36 11/16/21 23:36 11/16/21 23:31 11/16/21 23:15 11/16/21 23:15 11/16/21 23:51 Room Air 11/16/21 23:39 92 Room Air 11/16/21 23:00 11/16/21 23:00 11/16/21 22:45 11/16/21 22:45 11/16/21 22:30 11/16/21 22:30 11/16/21 22:23 11/16/21 22:23 11/16/21 22:15 11/16/21 22:15 11/16/21 22:00 11/16/21 21:45 11/16/21 21:45 11/16/21 21:30 11/16/21 21:15 11/16/21 21:15 11/16/21 21:09 11/16/21 21:09 11/16/21 21:00 11/16/21 21:00 11/16/21 20:54 11/16/21 20:54 Laboratory Results 11/17/21 11/17/21 11/17/21 Range/Units 07:47 07:47 05:37 WBC (4.8-10.8) K/ul RBC (4.63-6.08) M/uL Hgb (14.0-18.0) g/dl POC Hgb (14.0-18.0) g/dl Hct (40.1-51.0) % POC Hct (42-52) % MCV (80.0-100.0) fL MCH (25.0-34.0) pg MCHC (32.0-36.0) g/dL RDW Std Deviation (36.4-46.3) fL RDW Coeff of Yonatan (11.5-14.5) % Plt Count (130-400) K/uL MPV (9.4-12.4) fL Immature Gran % (Auto) % Neut % (Auto) % Lymph % (Auto) % Larue % (Auto) % Eos % (Auto) % Baso % (Auto) % Reticulocyte % (Auto) (0.5-2.0) % Neut # (Auto) (1.4-6.5) K/uL Lymph # (Auto) (1.2-3.4) K/uL Larue # (Auto) (0.24-0.82) K/uL Eos # (Auto) (0-0.50) K/uL Baso # (Auto) (0-0.2) K/uL Reticulocyte # (0.02-0.10) 10^6/uL Immature Gran # (Auto) (0.00-0.02) K/uL Absolute Nucleated RBC (0-0) K/uL Nucleated RBC % (auto) % Platelet Estimate (Normal) Target Cells PT 21.0 H (9.0-12.0) Seconds INR 2.0 H (0.9-1.1) APTT (21.0-31.0) Seconds PTT Ratio Fibrinogen Pending VBG pH (7.36-7.41) VBG pCO2 (38-50) mmHg VBG pO2 mmHg VBG HCO3 mmol/L VBG O2 Saturation % VBG Base Excess mEq/L POC Sodium (135-144) mmol/L Sodium (136-145) mmol/L POC Potassium (3.3-5.0) mmol/L Potassium (3.5-5.1) mmol/L POC Chloride (101-112) mmol/L Chloride (98-107) mmol/L Carbon Dioxide (21-32) mmol/L POC Total CO2 (24-31) mmol/L Anion Gap (3-11) POC Anion Gap (16-25) mmol/L POC BUN (7-18) mg/dl BUN Creatinine POC Creatinine (0.6-1.3) mg/dl Est Cr Clr Drug Dosing Est GFR ( Amer) Est GFR (Non-Af Amer) BUN/Creatinine Ratio Glucose (70-99(Fasting)) mg/dl POC Glucose (other) (70-99) mg/dl Lactate Calcium (8.5-10.1) mg/dl POC Ioniz Calcium Carrie (1.12-1.32) mmol/l Phosphorus (2.5-4.9) mg/dl Magnesium (1.7-2.4) mg/dl Iron (35-175) mcg/dl Transferrin (200-360) mg/dl Ferritin (8-388) ng/ml Total Bilirubin (0.2-1.0) mg/dl Direct Bilirubin (0-0.2) mg/dl AST (13-39) U/L ALT (7-52) U/L Alkaline Phosphatase Ammonia Troponin I High Sens (0-20) pg/ml Total Protein (6.0-8.3) gm/dl Albumin (3.4-5.0) gm/dl Globulin (2.5-4.0) gm/dl Albumin/Globulin Ratio (0.9-2) Lipase Vitamin B12 (180-914) pg/ml Folate 6.33 Procalcitonin (0-0.5) ng/ml Urine Color Urine Appearance (Clear) Urine pH (4.5-7.5) Ur Specific Midfield (1.000-1.030) Urine Protein (Negative) Urine Glucose (UA) (Negative) Urine Ketones (Negative) Urine Blood (Negative) Urine Nitrite (Negative) Urine Bilirubin (Negative) Urine Urobilinogen (Negative) Ur Leukocyte Esterase (Negative) Urine RBC (0-4) /hpf Urine WBC (0-5) /hpf Ur Epithelial Cells (0-5) /lpf Urine Bacteria (Negative) Nasal Screen MRSA (PCR) (Negative) Salicylates Acetaminophen Ethyl Alcohol mg/dL (<10.0) mg/dl Hepatitis A IgM Ab Hep Bs Antigen Hep Bs Ag Confirmation Hep B Core IgM Ab Hepatitis C Ab (EIA) Hep C Ab Signal/Cutoff SARS-CoV-2, RNA, NAAT (NEGATIVE) Miscellaneous Test Miscellaneous Test 2 11/17/21 11/17/21 11/17/21 Range/Units 05:37 05:37 01:00 WBC 9.70 (4.8-10.8) K/ul RBC 2.89 L (4.63-6.08) M/uL Hgb 10.3 L (14.0-18.0) g/dl POC Hgb (14.0-18.0) g/dl Hct 28.8 L (40.1-51.0) % POC Hct (42-52) % MCV 99.7 (80.0-100.0) fL MCH 35.6 H (25.0-34.0) pg MCHC 35.8 (32.0-36.0) g/dL RDW Std Deviation 55.8 H (36.4-46.3) fL RDW Coeff of Yonatan 15.6 H (11.5-14.5) % Plt Count 108 L (130-400) K/uL MPV 11.3 (9.4-12.4) fL Immature Gran % (Auto) 2.7 % Neut % (Auto) 82.3 % Lymph % (Auto) 6.3 % Larue % (Auto) 7.8 % Eos % (Auto) 0.7 % Baso % (Auto) 0.2 % Reticulocyte % (Auto) 2.1 H (0.5-2.0) % Neut # (Auto) 7.98 H (1.4-6.5) K/uL Lymph # (Auto) 0.61 L (1.2-3.4) K/uL Larue # (Auto) 0.76 (0.24-0.82) K/uL Eos # (Auto) 0.07 (0-0.50) K/uL Baso # (Auto) 0.02 (0-0.2) K/uL Reticulocyte # 0.06 (0.02-0.10) 10^6/uL Immature Gran # (Auto) 0.26 H (0.00-0.02) K/uL Absolute Nucleated RBC 0.09 H (0-0) K/uL Nucleated RBC % (auto) 0.9 % Platelet Estimate (Normal) Target Cells PT (9.0-12.0) Seconds INR (0.9-1.1) APTT (21.0-31.0) Seconds PTT Ratio Fibrinogen VBG pH (7.36-7.41) VBG pCO2 (38-50) mmHg VBG pO2 mmHg VBG HCO3 mmol/L VBG O2 Saturation % VBG Base Excess mEq/L POC Sodium (135-144) mmol/L Sodium 127 L (136-145) mmol/L POC Potassium (3.3-5.0) mmol/L Potassium 3.6 (3.5-5.1) mmol/L POC Chloride (101-112) mmol/L Chloride 91 L (98-107) mmol/L Carbon Dioxide 22 (21-32) mmol/L POC Total CO2 (24-31) mmol/L Anion Gap 14 H (3-11) POC Anion Gap (16-25) mmol/L POC BUN (7-18) mg/dl BUN 37 H Creatinine TNP POC Creatinine (0.6-1.3) mg/dl Est Cr Clr Drug Dosing Not Reportable Est GFR ( Amer) Not Reportable Est GFR (Non-Af Amer) Not Reportable BUN/Creatinine Ratio TNP Glucose 186 H (70-99(Fasting)) mg/dl POC Glucose (other) (70-99) mg/dl Lactate Calcium 8.2 L (8.5-10.1) mg/dl POC Ioniz Calcium Carrie (1.12-1.32) mmol/l Phosphorus 1.1 L* (2.5-4.9) mg/dl Magnesium 2.2 (1.7-2.4) mg/dl Iron 101 (35-175) mcg/dl Transferrin < 95 L (200-360) mg/dl Ferritin 1833.0 H (8-388) ng/ml Total Bilirubin 35.5 H (0.2-1.0) mg/dl Direct Bilirubin 20.8 H (0-0.2) mg/dl AST 134 H (13-39) U/L ALT 87 H (7-52) U/L Alkaline Phosphatase TNP Ammonia Troponin I High Sens (0-20) pg/ml Total Protein 5.1 L (6.0-8.3) gm/dl Albumin 2.6 L (3.4-5.0) gm/dl Globulin (2.5-4.0) gm/dl Albumin/Globulin Ratio (0.9-2) Lipase Vitamin B12 (180-914) pg/ml Folate Procalcitonin (0-0.5) ng/ml Urine Color Brown Urine Appearance Slightly Cloudy (Clear) Urine pH (4.5-7.5) Ur Specific Midfield 1.021 (1.000-1.030) Urine Protein (Negative) Urine Glucose (UA) (Negative) Urine Ketones (Negative) Urine Blood (Negative) Urine Nitrite (Negative) Urine Bilirubin (Negative) Urine Urobilinogen (Negative) Ur Leukocyte Esterase (Negative) Urine RBC 0-4 (0-4) /hpf Urine WBC 5-10 H (0-5) /hpf Ur Epithelial Cells >30 H (0-5) /lpf Urine Bacteria 1+ H (Negative) Nasal Screen MRSA (PCR) (Negative) Salicylates Acetaminophen Ethyl Alcohol mg/dL (<10.0) mg/dl Hepatitis A IgM Ab Hep Bs Antigen Hep Bs Ag Confirmation Hep B Core IgM Ab Hepatitis C Ab (EIA) Hep C Ab Signal/Cutoff SARS-CoV-2, RNA, NAAT (NEGATIVE) Miscellaneous Test Miscellaneous Test 2 11/16/21 11/16/21 11/16/21 Range/Units 23:45 21:16 21:15 WBC (4.8-10.8) K/ul RBC (4.63-6.08) M/uL Hgb (14.0-18.0) g/dl POC Hgb (14.0-18.0) g/dl Hct (40.1-51.0) % POC Hct (42-52) % MCV (80.0-100.0) fL MCH (25.0-34.0) pg MCHC (32.0-36.0) g/dL RDW Std Deviation (36.4-46.3) fL RDW Coeff of Yonatan (11.5-14.5) % Plt Count (130-400) K/uL MPV (9.4-12.4) fL Immature Gran % (Auto) % Neut % (Auto) % Lymph % (Auto) % Larue % (Auto) % Eos % (Auto) % Baso % (Auto) % Reticulocyte % (Auto) (0.5-2.0) % Neut # (Auto) (1.4-6.5) K/uL Lymph # (Auto) (1.2-3.4) K/uL Larue # (Auto) (0.24-0.82) K/uL Eos # (Auto) (0-0.50) K/uL Baso # (Auto) (0-0.2) K/uL Reticulocyte # (0.02-0.10) 10^6/uL Immature Gran # (Auto) (0.00-0.02) K/uL Absolute Nucleated RBC (0-0) K/uL Nucleated RBC % (auto) % Platelet Estimate (Normal) Target Cells PT (9.0-12.0) Seconds INR (0.9-1.1) APTT (21.0-31.0) Seconds PTT Ratio Fibrinogen VBG pH 7.47 H (7.36-7.41) VBG pCO2 33 L (38-50) mmHg VBG pO2 50 mmHg VBG HCO3 24 mmol/L VBG O2 Saturation 86.7 % VBG Base Excess 0.9 mEq/L POC Sodium (135-144) mmol/L Sodium (136-145) mmol/L POC Potassium (3.3-5.0) mmol/L Potassium (3.5-5.1) mmol/L POC Chloride (101-112) mmol/L Chloride (98-107) mmol/L Carbon Dioxide (21-32) mmol/L POC Total CO2 (24-31) mmol/L Anion Gap (3-11) POC Anion Gap (16-25) mmol/L POC BUN (7-18) mg/dl BUN Creatinine POC Creatinine (0.6-1.3) mg/dl Est Cr Clr Drug Dosing Est GFR ( Amer) Est GFR (Non-Af Amer) BUN/Creatinine Ratio Glucose (70-99(Fasting)) mg/dl POC Glucose (other) (70-99) mg/dl Lactate Calcium (8.5-10.1) mg/dl POC Ioniz Calcium Carrie (1.12-1.32) mmol/l Phosphorus (2.5-4.9) mg/dl Magnesium (1.7-2.4) mg/dl Iron (35-175) mcg/dl Transferrin (200-360) mg/dl Ferritin (8-388) ng/ml Total Bilirubin (0.2-1.0) mg/dl Direct Bilirubin (0-0.2) mg/dl AST (13-39) U/L ALT (7-52) U/L Alkaline Phosphatase Ammonia Troponin I High Sens (0-20) pg/ml Total Protein (6.0-8.3) gm/dl Albumin (3.4-5.0) gm/dl Globulin (2.5-4.0) gm/dl Albumin/Globulin Ratio (0.9-2) Lipase Vitamin B12 (180-914) pg/ml Folate Procalcitonin 1.79 H (0-0.5) ng/ml Urine Color Urine Appearance (Clear) Urine pH (4.5-7.5) Ur Specific Midfield (1.000-1.030) Urine Protein (Negative) Urine Glucose (UA) (Negative) Urine Ketones (Negative) Urine Blood (Negative) Urine Nitrite (Negative) Urine Bilirubin (Negative) Urine Urobilinogen (Negative) Ur Leukocyte Esterase (Negative) Urine RBC (0-4) /hpf Urine WBC (0-5) /hpf Ur Epithelial Cells (0-5) /lpf Urine Bacteria (Negative) Nasal Screen MRSA (PCR) Negative (Negative) Salicylates Acetaminophen Ethyl Alcohol mg/dL (<10.0) mg/dl Hepatitis A IgM Ab Hep Bs Antigen Hep Bs Ag Confirmation Hep B Core IgM Ab Hepatitis C Ab (EIA) Hep C Ab Signal/Cutoff SARS-CoV-2, RNA, NAAT (NEGATIVE) Miscellaneous Test Miscellaneous Test 2 11/16/21 11/16/21 11/16/21 Range/Units 21:15 20:55 19:05 WBC (4.8-10.8) K/ul RBC (4.63-6.08) M/uL Hgb (14.0-18.0) g/dl POC Hgb (14.0-18.0) g/dl Hct (40.1-51.0) % POC Hct (42-52) % MCV (80.0-100.0) fL MCH (25.0-34.0) pg MCHC (32.0-36.0) g/dL RDW Std Deviation (36.4-46.3) fL RDW Coeff of Yonatan (11.5-14.5) % Plt Count (130-400) K/uL MPV (9.4-12.4) fL Immature Gran % (Auto) % Neut % (Auto) % Lymph % (Auto) % Larue % (Auto) % Eos % (Auto) % Baso % (Auto) % Reticulocyte % (Auto) (0.5-2.0) % Neut # (Auto) (1.4-6.5) K/uL Lymph # (Auto) (1.2-3.4) K/uL Larue # (Auto) (0.24-0.82) K/uL Eos # (Auto) (0-0.50) K/uL Baso # (Auto) (0-0.2) K/uL Reticulocyte # (0.02-0.10) 10^6/uL Immature Gran # (Auto) (0.00-0.02) K/uL Absolute Nucleated RBC (0-0) K/uL Nucleated RBC % (auto) % Platelet Estimate (Normal) Target Cells PT (9.0-12.0) Seconds INR (0.9-1.1) APTT (21.0-31.0) Seconds PTT Ratio Fibrinogen VBG pH (7.36-7.41) VBG pCO2 (38-50) mmHg VBG pO2 mmHg VBG HCO3 mmol/L VBG O2 Saturation % VBG Base Excess mEq/L POC Sodium (135-144) mmol/L Sodium (136-145) mmol/L POC Potassium (3.3-5.0) mmol/L Potassium (3.5-5.1) mmol/L POC Chloride (101-112) mmol/L Chloride (98-107) mmol/L Carbon Dioxide (21-32) mmol/L POC Total CO2 (24-31) mmol/L Anion Gap (3-11) POC Anion Gap (16-25) mmol/L POC BUN (7-18) mg/dl BUN Creatinine POC Creatinine (0.6-1.3) mg/dl Est Cr Clr Drug Dosing Est GFR ( Amer) Est GFR (Non-Af Amer) BUN/Creatinine Ratio Glucose (70-99(Fasting)) mg/dl POC Glucose (other) (70-99) mg/dl Lactate TNP Calcium (8.5-10.1) mg/dl POC Ioniz Calcium Carrie (1.12-1.32) mmol/l Phosphorus (2.5-4.9) mg/dl Magnesium (1.7-2.4) mg/dl Iron (35-175) mcg/dl Transferrin (200-360) mg/dl Ferritin (8-388) ng/ml Total Bilirubin 33.8 H (0.2-1.0) mg/dl Direct Bilirubin 20.7 H (0-0.2) mg/dl AST 156 H (13-39) U/L ALT 89 H (7-52) U/L Alkaline Phosphatase TNP Ammonia TNP Troponin I High Sens (0-20) pg/ml Total Protein 4.9 L D (6.0-8.3) gm/dl Albumin 2.4 L (3.4-5.0) gm/dl Globulin (2.5-4.0) gm/dl Albumin/Globulin Ratio (0.9-2) Lipase Vitamin B12 (180-914) pg/ml Folate Procalcitonin (0-0.5) ng/ml Urine Color Urine Appearance (Clear) Urine pH (4.5-7.5) Ur Specific [place]field (1.000-1.030) Urine Protein (Negative) Urine Glucose (UA) (Negative) Urine Ketones (Negative) Urine Blood (Negative) Urine Nitrite (Negative) Urine Bilirubin (Negative) Urine Urobilinogen (Negative) Ur Leukocyte Esterase (Negative) Urine RBC (0-4) /hpf Urine WBC (0-5) /hpf Ur Epithelial Cells (0-5) /lpf Urine Bacteria (Negative) Nasal Screen MRSA (PCR) (Negative) Salicylates Acetaminophen Ethyl Alcohol mg/dL (<10.0) mg/dl Hepatitis A IgM Ab Hep Bs Antigen Hep Bs Ag Confirmation Hep B Core IgM Ab Hepatitis C Ab (EIA) Hep C Ab Signal/Cutoff SARS-CoV-2, RNA, NAAT (NEGATIVE) Miscellaneous Test Miscellaneous Test 2 11/16/21 11/16/21 11/16/21 Range/Units 19:00 18:55 18:55 WBC (4.8-10.8) K/ul RBC (4.63-6.08) M/uL Hgb (14.0-18.0) g/dl POC Hgb (14.0-18.0) g/dl Hct (40.1-51.0) % POC Hct (42-52) % MCV (80.0-100.0) fL MCH (25.0-34.0) pg MCHC (32.0-36.0) g/dL RDW Std Deviation (36.4-46.3) fL RDW Coeff of Yonatan (11.5-14.5) % Plt Count (130-400) K/uL MPV (9.4-12.4) fL Immature Gran % (Auto) % Neut % (Auto) % Lymph % (Auto) % Larue % (Auto) % Eos % (Auto) % Baso % (Auto) % Reticulocyte % (Auto) (0.5-2.0) % Neut # (Auto) (1.4-6.5) K/uL Lymph # (Auto) (1.2-3.4) K/uL Larue # (Auto) (0.24-0.82) K/uL Eos # (Auto) (0-0.50) K/uL Baso # (Auto) (0-0.2) K/uL Reticulocyte # (0.02-0.10) 10^6/uL Immature Gran # (Auto) (0.00-0.02) K/uL Absolute Nucleated RBC (0-0) K/uL Nucleated RBC % (auto) % Platelet Estimate (Normal) Target Cells PT (9.0-12.0) Seconds INR (0.9-1.1) APTT (21.0-31.0) Seconds PTT Ratio Fibrinogen VBG pH (7.36-7.41) VBG pCO2 (38-50) mmHg VBG pO2 mmHg VBG HCO3 mmol/L VBG O2 Saturation % VBG Base Excess mEq/L POC Sodium (135-144) mmol/L Sodium (136-145) mmol/L POC Potassium (3.3-5.0) mmol/L Potassium (3.5-5.1) mmol/L POC Chloride (101-112) mmol/L Chloride (98-107) mmol/L Carbon Dioxide (21-32) mmol/L POC Total CO2 (24-31) mmol/L Anion Gap (3-11) POC Anion Gap (16-25) mmol/L POC BUN (7-18) mg/dl BUN Creatinine POC Creatinine (0.6-1.3) mg/dl Est Cr Clr Drug Dosing Est GFR ( Amer) Est GFR (Non-Af Amer) BUN/Creatinine Ratio Glucose (70-99(Fasting)) mg/dl POC Glucose (other) (70-99) mg/dl Lactate Calcium (8.5-10.1) mg/dl POC Ioniz Calcium Carrie (1.12-1.32) mmol/l Phosphorus (2.5-4.9) mg/dl Magnesium (1.7-2.4) mg/dl Iron (35-175) mcg/dl Transferrin (200-360) mg/dl Ferritin (8-388) ng/ml Total Bilirubin (0.2-1.0) mg/dl Direct Bilirubin (0-0.2) mg/dl AST (13-39) U/L ALT (7-52) U/L Alkaline Phosphatase Ammonia Troponin I High Sens (0-20) pg/ml Total Protein (6.0-8.3) gm/dl Albumin (3.4-5.0) gm/dl Globulin (2.5-4.0) gm/dl Albumin/Globulin Ratio (0.9-2) Lipase Vitamin B12 1344 H (180-914) pg/ml Folate 4.30 L Cancelled Procalcitonin (0-0.5) ng/ml Urine Color Urine Appearance (Clear) Urine pH (4.5-7.5) Ur Specific [place] (1.000-1.030) Urine Protein (Negative) Urine Glucose (UA) (Negative) Urine Ketones (Negative) Urine Blood (Negative) Urine Nitrite (Negative) Urine Bilirubin (Negative) Urine Urobilinogen (Negative) Ur Leukocyte Esterase (Negative) Urine RBC (0-4) /hpf Urine WBC (0-5) /hpf Ur Epithelial Cells (0-5) /lpf Urine Bacteria (Negative) Nasal Screen MRSA (PCR) (Negative) Salicylates Acetaminophen Ethyl Alcohol mg/dL (<10.0) mg/dl Hepatitis A IgM Ab Hep Bs Antigen Hep Bs Ag Confirmation Hep B Core IgM Ab Hepatitis C Ab (EIA) Hep C Ab Signal/Cutoff SARS-CoV-2, RNA, NAAT NEGATIVE (NEGATIVE) Miscellaneous Test Miscellaneous Test 2 11/16/21 11/16/21 11/16/21 Range/Units 18:55 18:55 18:55 WBC (4.8-10.8) K/ul RBC (4.63-6.08) M/uL Hgb (14.0-18.0) g/dl POC Hgb (14.0-18.0) g/dl Hct (40.1-51.0) % POC Hct (42-52) % MCV (80.0-100.0) fL MCH (25.0-34.0) pg MCHC (32.0-36.0) g/dL RDW Std Deviation (36.4-46.3) fL RDW Coeff of Yonatan (11.5-14.5) % Plt Count (130-400) K/uL MPV (9.4-12.4) fL Immature Gran % (Auto) % Neut % (Auto) % Lymph % (Auto) % Larue % (Auto) % Eos % (Auto) % Baso % (Auto) % Reticulocyte % (Auto) (0.5-2.0) % Neut # (Auto) (1.4-6.5) K/uL Lymph # (Auto) (1.2-3.4) K/uL Larue # (Auto) (0.24-0.82) K/uL Eos # (Auto) (0-0.50) K/uL Baso # (Auto) (0-0.2) K/uL Reticulocyte # (0.02-0.10) 10^6/uL Immature Gran # (Auto) (0.00-0.02) K/uL Absolute Nucleated RBC (0-0) K/uL Nucleated RBC % (auto) % Platelet Estimate (Normal) Target Cells PT (9.0-12.0) Seconds INR (0.9-1.1) APTT (21.0-31.0) Seconds PTT Ratio Fibrinogen VBG pH (7.36-7.41) VBG pCO2 (38-50) mmHg VBG pO2 mmHg VBG HCO3 mmol/L VBG O2 Saturation % VBG Base Excess mEq/L POC Sodium (135-144) mmol/L Sodium (136-145) mmol/L POC Potassium (3.3-5.0) mmol/L Potassium (3.5-5.1) mmol/L POC Chloride (101-112) mmol/L Chloride (98-107) mmol/L Carbon Dioxide (21-32) mmol/L POC Total CO2 (24-31) mmol/L Anion Gap (3-11) POC Anion Gap (16-25) mmol/L POC BUN (7-18) mg/dl BUN Creatinine POC Creatinine (0.6-1.3) mg/dl Est Cr Clr Drug Dosing Est GFR ( Amer) Est GFR (Non-Af Amer) BUN/Creatinine Ratio Glucose (70-99(Fasting)) mg/dl POC Glucose (other) (70-99) mg/dl Lactate Calcium (8.5-10.1) mg/dl POC Ioniz Calcium Carrie (1.12-1.32) mmol/l Phosphorus (2.5-4.9) mg/dl Magnesium (1.7-2.4) mg/dl Iron (35-175) mcg/dl Transferrin (200-360) mg/dl Ferritin (8-388) ng/ml Total Bilirubin (0.2-1.0) mg/dl Direct Bilirubin (0-0.2) mg/dl AST (13-39) U/L ALT (7-52) U/L Alkaline Phosphatase Ammonia Troponin I High Sens (0-20) pg/ml Total Protein (6.0-8.3) gm/dl Albumin (3.4-5.0) gm/dl Globulin (2.5-4.0) gm/dl Albumin/Globulin Ratio (0.9-2) Lipase Vitamin B12 (180-914) pg/ml Folate Procalcitonin (0-0.5) ng/ml Urine Color Urine Appearance (Clear) Urine pH (4.5-7.5) Ur Specific [place] (1.000-1.030) Urine Protein (Negative) Urine Glucose (UA) (Negative) Urine Ketones (Negative) Urine Blood (Negative) Urine Nitrite (Negative) Urine Bilirubin (Negative) Urine Urobilinogen (Negative) Ur Leukocyte Esterase (Negative) Urine RBC (0-4) /hpf Urine WBC (0-5) /hpf Ur Epithelial Cells (0-5) /lpf Urine Bacteria (Negative) Nasal Screen MRSA (PCR) (Negative) Salicylates TNP Acetaminophen TNP Ethyl Alcohol mg/dL 11.6 H (<10.0) mg/dl Hepatitis A IgM Ab Hep Bs Antigen Hep Bs Ag Confirmation Hep B Core IgM Ab Hepatitis C Ab (EIA) Hep C Ab Signal/Cutoff SARS-CoV-2, RNA, NAAT (NEGATIVE) Miscellaneous Test Pending Miscellaneous Test 2 Pending 11/16/21 11/16/21 11/16/21 Range/Units 18:31 17:45 17:45 WBC (4.8-10.8) K/ul RBC (4.63-6.08) M/uL Hgb (14.0-18.0) g/dl POC Hgb 12.6 L (14.0-18.0) g/dl Hct (40.1-51.0) % POC Hct 37 L (42-52) % MCV (80.0-100.0) fL MCH (25.0-34.0) pg MCHC (32.0-36.0) g/dL RDW Std Deviation (36.4-46.3) fL RDW Coeff of Yonatan (11.5-14.5) % Plt Count (130-400) K/uL MPV (9.4-12.4) fL Immature Gran % (Auto) % Neut % (Auto) % Lymph % (Auto) % Larue % (Auto) % Eos % (Auto) % Baso % (Auto) % Reticulocyte % (Auto) (0.5-2.0) % Neut # (Auto) (1.4-6.5) K/uL Lymph # (Auto) (1.2-3.4) K/uL Larue # (Auto) (0.24-0.82) K/uL Eos # (Auto) (0-0.50) K/uL Baso # (Auto) (0-0.2) K/uL Reticulocyte # (0.02-0.10) 10^6/uL Immature Gran # (Auto) (0.00-0.02) K/uL Absolute Nucleated RBC (0-0) K/uL Nucleated RBC % (auto) % Platelet Estimate (Normal) Target Cells PT (9.0-12.0) Seconds INR (0.9-1.1) APTT (21.0-31.0) Seconds PTT Ratio Fibrinogen VBG pH (7.36-7.41) VBG pCO2 (38-50) mmHg VBG pO2 mmHg VBG HCO3 mmol/L VBG O2 Saturation % VBG Base Excess mEq/L POC Sodium 128 L (135-144) mmol/L Sodium 126 L (136-145) mmol/L POC Potassium 3.7 (3.3-5.0) mmol/L Potassium 3.7 (3.5-5.1) mmol/L POC Chloride 92 L (101-112) mmol/L Chloride 89 L (98-107) mmol/L Carbon Dioxide 24 (21-32) mmol/L POC Total CO2 26 (24-31) mmol/L Anion Gap 13 H (3-11) POC Anion Gap 14.0 L (16-25) mmol/L POC BUN 36 H (7-18) mg/dl BUN TNP Creatinine TNP POC Creatinine 3.0 H (0.6-1.3) mg/dl Est Cr Clr Drug Dosing TNP Est GFR ( Amer) TNP Est GFR (Non-Af Amer) TNP BUN/Creatinine Ratio TNP Glucose 116 H (70-99(Fasting)) mg/dl POC Glucose (other) 127 H (70-99) mg/dl Lactate Calcium 9.5 (8.5-10.1) mg/dl POC Ioniz Calcium Carrie 1.18 (1.12-1.32) mmol/l Phosphorus (2.5-4.9) mg/dl Magnesium (1.7-2.4) mg/dl Iron (35-175) mcg/dl Transferrin (200-360) mg/dl Ferritin (8-388) ng/ml Total Bilirubin 39.0 H (0.2-1.0) mg/dl Direct Bilirubin (0-0.2) mg/dl AST 192 H (13-39) U/L ALT 110 H (7-52) U/L Alkaline Phosphatase TNP Ammonia Troponin I High Sens 14.2 (0-20) pg/ml Total Protein 5.9 L (6.0-8.3) gm/dl Albumin 2.9 L (3.4-5.0) gm/dl Globulin 3.0 (2.5-4.0) gm/dl Albumin/Globulin Ratio 1.0 (0.9-2) Lipase TNP Vitamin B12 (180-914) pg/ml Folate Procalcitonin (0-0.5) ng/ml Urine Color Urine Appearance (Clear) Urine pH (4.5-7.5) Ur Specific [place] (1.000-1.030) Urine Protein (Negative) Urine Glucose (UA) (Negative) Urine Ketones (Negative) Urine Blood (Negative) Urine Nitrite (Negative) Urine Bilirubin (Negative) Urine Urobilinogen (Negative) Ur Leukocyte Esterase (Negative) Urine RBC (0-4) /hpf Urine WBC (0-5) /hpf Ur Epithelial Cells (0-5) /lpf Urine Bacteria (Negative) Nasal Screen MRSA (PCR) (Negative) Salicylates Acetaminophen Ethyl Alcohol mg/dL (<10.0) mg/dl Hepatitis A IgM Ab Pending Hep Bs Antigen Pending Hep Bs Ag Confirmation Pending Hep B Core IgM Ab Pending Hepatitis C Ab (EIA) Pending Hep C Ab Signal/Cutoff Pending SARS-CoV-2, RNA, NAAT (NEGATIVE) Miscellaneous Test Miscellaneous Test 2 11/16/21 11/16/21 Range/Units 17:45 17:45 WBC 9.04 (4.8-10.8) K/ul RBC 3.49 L (4.63-6.08) M/uL Hgb 12.5 L (14.0-18.0) g/dl POC Hgb (14.0-18.0) g/dl Hct 35.2 L (40.1-51.0) % POC Hct (42-52) % MCV 100.9 H (80.0-100.0) fL MCH 35.8 H (25.0-34.0) pg MCHC 35.5 (32.0-36.0) g/dL RDW Std Deviation 56.9 H (36.4-46.3) fL RDW Coeff of Yonatan 15.5 H (11.5-14.5) % Plt Count 115 L (130-400) K/uL MPV 11.3 (9.4-12.4) fL Immature Gran % (Auto) 3.1 % Neut % (Auto) 77.1 % Lymph % (Auto) 8.0 % Larue % (Auto) 10.5 % Eos % (Auto) 0.9 % Baso % (Auto) 0.4 % Reticulocyte % (Auto) (0.5-2.0) % Neut # (Auto) 6.97 H (1.4-6.5) K/uL Lymph # (Auto) 0.72 L (1.2-3.4) K/uL Larue # (Auto) 0.95 H (0.24-0.82) K/uL Eos # (Auto) 0.08 (0-0.50) K/uL Baso # (Auto) 0.04 (0-0.2) K/uL Reticulocyte # (0.02-0.10) 10^6/uL Immature Gran # (Auto) 0.28 H (0.00-0.02) K/uL Absolute Nucleated RBC 0.12 H (0-0) K/uL Nucleated RBC % (auto) 1.3 % Platelet Estimate Decreased L (Normal) Target Cells 1+ PT 18.4 H (9.0-12.0) Seconds INR 1.8 H (0.9-1.1) APTT 38.5 H (21.0-31.0) Seconds PTT Ratio 1.4 Fibrinogen VBG pH (7.36-7.41) VBG pCO2 (38-50) mmHg VBG pO2 mmHg VBG HCO3 mmol/L VBG O2 Saturation % VBG Base Excess mEq/L POC Sodium (135-144) mmol/L Sodium (136-145) mmol/L POC Potassium (3.3-5.0) mmol/L Potassium (3.5-5.1) mmol/L POC Chloride (101-112) mmol/L Chloride (98-107) mmol/L Carbon Dioxide (21-32) mmol/L POC Total CO2 (24-31) mmol/L Anion Gap (3-11) POC Anion Gap (16-25) mmol/L POC BUN (7-18) mg/dl BUN Creatinine POC Creatinine (0.6-1.3) mg/dl Est Cr Clr Drug Dosing Est GFR ( Amer) Est GFR (Non-Af Amer) BUN/Creatinine Ratio Glucose (70-99(Fasting)) mg/dl POC Glucose (other) (70-99) mg/dl Lactate Calcium (8.5-10.1) mg/dl POC Ioniz Calcium Carrie (1.12-1.32) mmol/l Phosphorus (2.5-4.9) mg/dl Magnesium (1.7-2.4) mg/dl Iron (35-175) mcg/dl Transferrin (200-360) mg/dl Ferritin (8-388) ng/ml Total Bilirubin (0.2-1.0) mg/dl Direct Bilirubin (0-0.2) mg/dl AST (13-39) U/L ALT (7-52) U/L Alkaline Phosphatase Ammonia Troponin I High Sens (0-20) pg/ml Total Protein (6.0-8.3) gm/dl Albumin (3.4-5.0) gm/dl Globulin (2.5-4.0) gm/dl Albumin/Globulin Ratio (0.9-2) Lipase Vitamin B12 (180-914) pg/ml Folate Procalcitonin (0-0.5) ng/ml Urine Color Urine Appearance (Clear) Urine pH (4.5-7.5) Ur Specific [place] (1.000-1.030) Urine Protein (Negative) Urine Glucose (UA) (Negative) Urine Ketones (Negative) Urine Blood (Negative) Urine Nitrite (Negative) Urine Bilirubin (Negative) Urine Urobilinogen (Negative) Ur Leukocyte Esterase (Negative) Urine RBC (0-4) /hpf Urine WBC (0-5) /hpf Ur Epithelial Cells (0-5) /lpf Urine Bacteria (Negative) Nasal Screen MRSA (PCR) (Negative) Salicylates Acetaminophen Ethyl Alcohol mg/dL (<10.0) mg/dl Hepatitis A IgM Ab Hep Bs Antigen Hep Bs Ag Confirmation Hep B Core IgM Ab Hepatitis C Ab (EIA) Hep C Ab Signal/Cutoff SARS-CoV-2, RNA, NAAT (NEGATIVE) Miscellaneous Test Miscellaneous Test 2 Medications Administered Current Inpatient Medications Pantoprazole Sodium 40 mg/ (Syringe) 10 mls @ 5 mls/min IV BID [facility]RA Stop: 12/16/21 21:59 Last Admin: 11/17/21 00:17 Dose: 5 mls/min Norepinephrine Bitartrate (Levophed/D5w) 4 mg in 250 mls @ 19.688 mls/hr IV .[id number] [facility]; Protocol Stop: 12/16/21 21:59 Last Titration: 11/17/21 07:55 Dose: 0.02 mcg/kg/min, 7.9 mls/hr Acetylcysteine 10,000 mg/ (Dextrose) 1,050 mls @ 62.5 mls/hr IV ONCE ONE; Protocol Stop: 11/17/21 22:47 Last Admin: 11/17/21 06:25 Dose: 62.5 mls/hr Methylprednisolone 32.5 mg/ (Syringe) 0.52 mls @ 1.5 mls/min IV DAILY [facility] Stop: 12/16/21 23:44 Last Admin: 11/17/21 00:20 Dose: 1.5 mls/min Ceftriaxone Sodium 2,000 mg/ (Dextrose) 70 mls @ 100 mls/hr IV Q24H [facility]; Protocol Stop: 11/19/21 08:59 Albumin Human (Albumin 25% 100 Ml) 25 gm in 100 mls @ 50 mls/hr IV Q8H [facility] Stop: 11/20/21 00:29 Last Infusion: 11/17/21 03:37 Dose: Infused Folic Acid 1 mg/ Syringe 10 mls @ 5 mls/min IV QAM [facility] Stop: 12/17/21 08:59 Lorazepam 1 mg/ Syringe 1 mls @ 2 mls/min IV UD PRN; Protocol PRN Reason: EtOH Withdrawal AWSS Score 6,7 Stop: 12/17/21 00:21 Lorazepam 2 mg/ Syringe 2 mls @ 2 mls/min IV UD PRN; Protocol PRN Reason: EtOH Withdrawal AWSS Score 8,9 Stop: 12/17/21 00:21 Lorazepam 3 mg/ Syringe 3 mls @ 2 mls/min IV ONCE PRN; Protocol PRN Reason: EtOH Withdrawal AWSS Score 10 & above Thiamine HCl 500 mg/ Sodium (Chloride) 55 mls @ 220 mls/hr IV Q8H [facility] Stop: 11/20/21 00:29 Last Infusion: 11/17/21 02:20 Dose: Infused Thiamine HCl 200 mg/ Sodium (Chloride) 52 mls @ 208 mls/hr IV Q8H [facility] Stop: 11/22/21 00:29 Thiamine HCl 100 mg/ Syringe 10 mls @ 2 mls/min IV QAM [facility] Stop: 12/22/21 08:59 Parenteral Electrolytes (Normosol-R) 1,000 mls @ 125 mls/hr IV .Q8H [facility] Stop: 12/17/21 00:44 Last Admin: 11/17/21 07:54 Dose: 125 mls/hr Potassium Phosphate 21 mmol/ (Sodium Chloride) 507 mls @ 140 mls/hr IV ONE ONE Stop: 11/17/21 11:37 Miscellaneous ([facility] Protocol For Hyperglycemia) 1 each N/A PRN PRN; Protocol PRN Reason: Hyperglycemia Protocol Stop: 11/18/21 23:38
--- NOTE | 2021-11-17 09:19 | Nephrology Consultation ---
Date of Consultation November 17, 2021 Assessment & Plan (1) HEENA (acute kidney injury): nonoliguric stage 2 HEENA w/ presenting POC creatinine 3. baseline creatinine 1.2 as recently as late last year. not a liver transplant candidate and therefore not a dialysis candidate should the need arise. Hepatorenal syndrome certainly on differential but ischemic ATN also a concern, given presenting sBPs 90s, pressor dependence> treat HRS while . Takes no OP diuretics. -defer to critical care/ primary service if not receiving norepinephrine would plan for midodrine 5-7.5 mg tid; already on octreotide w/ albumin - did increase latter to qid from tid 25 gm >would d/c/ lower IVF rate if possible -BMP as below -f/u pending cxs blood urine -ensure empiric coverage for SBP; paracentesis if able (bleeding may limit) -f/u EGD results (2) Disorder of fluid or electrolyte: severe hypophosphatemia; mild hyponatremia -phos being repleted IV appropriately -bmp w/ mag, phos q8 hr and replete prn IV History of Present Illness Reason for Consultation: hepatorenal syndrome, hyponatremia Requesting Physician: Dr Hampton Attending Physician: Carmine Abraham MD History of Present Illness 51 y/o M whom I'm asked to see for HRS was admitted last evening to ICU for acut e alcoholic hepatitis with bilirubin 33 and pressor-dependent hypotension referred by PCP for jaundice after presenting to PCP to evaluate low back pain. PMH includes A. fib (Status post maze procedure), HTN, GERD, active alcohol abuse actively drinking past 2 wks. he has had 5L IVF and has made 600 mL urine. no leukocytosis; cannot analyse urine well d/t bilirubinuria. he is on albumin as well as normosol 125 mL hourly; no pressor running when I saw him.. Presenting creatinine was 3 last evening on POC testing; unable to do in lab results d/t hyerbilirubinemia. sNa 127 today (128 on admission). Pt denies sob, n/v, voiding sx; c/o dark stools past few days and ongoing low back pain; no edema. 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 no falls. Denies NSAID use prior to admission; had been using tylenol. GI planning EGD today Allergies Allergy/AdvReac Type Severity Reaction Status Date / Time No Known Allergies Allergy Unverified 11/16/21 21:13 Home Medications Medication Instructions Recorded Confirmed Type carvedilol 12.5 mg tablet 12.5 mg PO DAILY 02/15/21 11/16/21 History omeprazole 20 mg capsule,delayed 20 mg PO DAILY 02/15/21 11/16/21 History release Patient History Medical History A-fib Acute alcoholic hepatitis Alcohol abuse Cardiomyopathy Hepatorenal syndrome History of cardioversion Hypotension Jaundice due to hepatitis No pertinent family history Sepsis Surgical History H/O maze procedure Social History Smoking Status: Never smoker Hx Alcohol Use: Yes Alcohol type: beer and hard liquor Alcohol type Comment: 1/5 of alcohol a day Hx Substance Use: No Preferred Language: French Communication Ability: Effective Patient Account Specialist Required: No Beliefs That Will Affect Care: None Current Living Situation: Significant Other Feels Safe at Home: Yes Safety Concerns: Feels Safe At This Time Assistive Devices: None Review of Systems Review of Systems: All systems reviewed & are unremarkable except as noted in HPI & below Physical Exam Constitutional: well developed, well nourished and cooperative; no acute distress Eyes: EOM intact bilaterally ENMT: Ears: no external ear abnormality Nose: no external nose abnormality Mouth: + dry oral mucous membranes Neck: no nuchal rigidity Respiratory: normal respiratory effort Auscultation: + diminished lung sounds Cardiovascular: Rate/Rhythm: + tachycardic and + irregularly irregular Extremities: + edema (trace dependent) Gastrointestinal (Abdomen): Inspection/Auscultation: normal bowel sounds Percussion/Palpation: abdomen soft; abdomen nontender Musculoskeletal: Extremities: strength 5/5 throughout Skin: no rashes, warm and dry Neurologic: de oliveira, fluent speech, no tremor Psychiatric: Orientation: alert and oriented x 3 Genitourinary: barry w/ some brown urine Results & Data ([facility]) Vital Signs (Past 12 Hours) Vital Signs Temp Pulse Pulse Resp BP BP Pulse Ox 11/17/21 05:00 119 H 25 H 93 09/15/22 05:00 110/82 11/17/21 04:30 131 H 22 129/89 94 11/17/21 04:00 36.9 C 121 H 21 114/77 93 11/17/21 03:30 131 H 18 125/85 92 11/17/21 03:00 131 H 19 112/79 92 11/17/21 02:30 131 H 21 115/84 92 11/17/21 02:37 129 H 11/17/21 02:00 130 H 24 93 11/17/21 02:00 117/77 11/17/21 01:45 130 H 23 92 11/17/21 01:30 130 H 23 93 11/17/21 01:30 107/76 11/17/21 01:15 129 H 35 H 91 11/17/21 01:00 129 H 18 96 11/17/21 01:00 121/82 11/17/21 00:45 129 H 37 H 84 L 11/17/21 00:30 130 H 23 92 11/17/21 00:30 107/75 11/17/21 00:15 130 H 23 93 11/17/21 00:00 124 H 27 H 93 11/17/21 00:00 102/72 11/16/21 23:45 130 H 28 H 93 11/16/21 23:36 104/80 11/16/21 23:36 130 H 21 91 11/16/21 23:31 120 H 6 L 11/16/21 23:15 114 H 18 11/16/21 23:15 80/62 L 11/16/21 23:51 36.8 C 131 H 24 104/80 92 11/16/21 23:39 11/16/21 23:00 116 H 20 11/16/21 23:00 99/66 L 11/16/21 22:45 115 H 26 H 91 11/16/21 22:45 96/69 L 11/16/21 22:30 117 H 22 11/16/21 22:30 106/70 11/16/21 22:23 99/70 L 11/16/21 22:23 113 H 23 94 11/16/21 22:15 111 H 28 H 11/16/21 22:15 90/65 L 11/16/21 22:00 119 H 31 H 103/72 95 11/16/21 21:45 115 H 20 93 11/16/21 21:45 120/74 11/16/21 21:30 124 H 20 11/16/21 21:15 129 H 21 11/16/21 21:15 94/65 L 11/16/21 21:09 111/58 L 11/16/21 21:09 116 H 24 94 11/16/21 21:00 120 H 24 11/16/21 21:00 87/61 L 11/16/21 20:54 97/62 L 11/16/21 20:54 118 H 22 Pulse Ox O2 Del Method O2 Del Method 11/17/21 05:00 11/17/21 05:00 11/17/21 04:30 Room Air 11/17/21 04:00 Room Air 11/17/21 03:30 Room Air 11/17/21 03:00 Room Air 11/17/21 02:30 Room Air 11/17/21 02:37 11/17/21 02:00 11/17/21 02:00 11/17/21 01:45 11/17/21 01:30 11/17/21 01:30 11/17/21 01:15 11/17/21 01:00 11/17/21 01:00 11/17/21 00:45 11/17/21 00:30 11/17/21 00:30 11/17/21 00:15 11/17/21 00:00 11/17/21 00:00 11/16/21 23:45 11/16/21 23:36 11/16/21 23:36 11/16/21 23:31 11/16/21 23:15 11/16/21 23:15 11/16/21 23:51 Room Air 11/16/21 23:39 92 Room Air 11/16/21 23:00 11/16/21 23:00 11/16/21 22:45 11/16/21 22:45 11/16/21 22:30 11/16/21 22:30 11/16/21 22:23 11/16/21 22:23 11/16/21 22:15 11/16/21 22:15 11/16/21 22:00 11/16/21 21:45 11/16/21 21:45 11/16/21 21:30 11/16/21 21:15 11/16/21 21:15 11/16/21 21:09 11/16/21 21:09 11/16/21 21:00 11/16/21 21:00 11/16/21 20:54 11/16/21 20:54 Laboratory Results 11/17/21 05:37 11/17/21 05:37 transaminases in 100s UA brown and not analyzeable past >[address] a/p non con 1. Hepatic steatosis and hepatomegaly are again seen. Superimposed hepatitis cannot be excluded. 2. No hydronephrosis or obstructive stone is seen. 3. Small left pleural effusion with underlying left greater than right atelectasis. 4. Cholelithiasis without cholecystitis. cxr 1. Cardiomegaly and mild pulmonary vascular congestion. 2. No evidence of airspace opacity to suggest pneumonia. Atelectasis is in the left lung base.
[2021-11-17] MEDS ORDERED: PANTOprazole 40 MG in SYRINGE 0 ML IV ONE (09:35)
--- NOTE | 2021-11-17 09:44 | Gastrointestinal Consultation ---
Date of Consultation November 17, 2021 Assessment & Plan (1) Acute alcoholic hepatitis: Plan 51 year old male with AFIB, HTN, GERD, alcohol abuse actively using ETOH daily who presented though the ED for evaluation of jaundice, concern for ETOH hepatitis admitted to the ICU, hypotensive on pressor support. We were asked to evaluate in regards to GI bleed, he is a poor historian but suggests dark black stools x 1-2 weeks, last occurring before arrival. Denies hematochezia, hematemesis or coffee ground emesis. DDX discussed: esophagitis, MWT, PUD, varices, gastritis vs other NPO Will discuss EGD timing with attending Agree with IV PPI Trend H&H Monitor and document GI output Trend INR Vit K per ICU/primary service Transfuse PRN Agree w/ NAC Follow acute hepatitis panel DF 76 Guarded prognosis Thank you for allowing us to participate in the care of this patient. Please c all with any acute changes, questions or concerns. Please see addendum below with additional recommendation from my supervising physician. Supervising Physician Co-Signing Physician Notes Attg add: I interviewed and examined pt, reviewed chart and labs. Pt with PMh sig for alcoholic CMP, a fib s/p MAZE, HTN. He is a heavy drinker, with last drink yesterday. He presented to hospital complaining of weakness, fatigue, and jaundice x 3 weeks. He was mildly hypotensive on admit, requiring pressors, which have been subsequently weaned off. He is currently in a fib and tachy to 100's. We are consulted for anemia, with Hgb 10 / MCV 100. He reports dark stool x 2-3 weeks. My rectal exam showed scant, absent stool. He underwent EGD, which was unremarkable. We are also consulted for alc hep. His Na is 127, Bili 39 --> 33, INR 18--> 2, creat 3.0 His DF is 76, MELD is 37. Blood and urine cx pending. He has been receiving NAC and solumederol for alc hep; He is on albumin, octreotide, and now midodrine with borderline uop. RECS: Diet as tolerated, follow hgb. Once daily oral PPI. Cont NAC protocol, prednisone for alc hep. Lille score at day 4. Uls with doppler, consider MRCP tomorrow. Елена, follow uop. Cont midodrine to support MAP, octreotide, and albumin infusions. Please consider renal consult. Please order echo. Prognosis guarded. He has been denied for transfer to [facility]. I spoke to Dr. Cunningham at [facility] for possible transfer - Phone number for transfer center [phone]. They are awaiting records, to eval for possibilty of transfer -- would ask primary service to follow up. History of Present Illness Reason for Consultation: GI bleed Requesting Physician: Jarad Attending Physician: Carmine Abraham MD History of Present Illness 51 yaer old male with history of AFIB, HTN, GERD, alcohol abuse actively using ETOH daily who presented though the ED for evaluation of jaundice, back pain. GI was asked to evaluate for back pain. Pt was seen and evaluated, chart reviewed. Suggests that about 1-2 weeks ago he developed black stools. These occurred 1-2 times daily but he did not see any bright red blood. He has had some mild upper abd pain. Mild nausea. No vomiting. Has not had any coffee ground emesis or hematemesis. + daily ETOH + tylenol use In the ED, concern for ETOH hepatitis, tertiary care was contacted, however, transfer not recommended as he was not a transplant candidate in light of active ETOH abuse. He was transferred to ICU, started on Levophed and albumin for hepatorenal syndrome, NAC and steroids for acute alcoholic hepatitis. HGB 14.9 --> 10.3 BUN 37 INR 2 TB 35 AST 134 ALT 87 ALKP unable to be calculated Lipase unable to be calculated ETOH level 12 Tylenol level unable to be calculated Acute hep panel pending CTAP 2021: hepatic steatosis and hepatomegaly are again seen. Superimposed hepatitis cannot be excluded. No hydronephrosis or obstructive stone is seen. Small left pleural effusion with underlying left greater than right atelectasis. Cholelithiasis without cholecystitis. Allergies Allergy/AdvReac Type Severity Reaction Status Date / Time No Known Allergies Allergy Unverified 11/16/21 21:13 Home Medications Medication Instructions Recorded Confirmed Type carvedilol 12.5 mg tablet 12.5 mg PO DAILY 02/15/21 11/16/21 History omeprazole 20 mg capsule,delayed 20 mg PO DAILY 02/15/21 11/16/21 History release Patient History Medical History A-fib Acute alcoholic hepatitis Alcohol abuse Cardiomyopathy Hepatorenal syndrome History of cardioversion Hypotension Jaundice due to hepatitis No pertinent family history Sepsis Surgical History H/O maze procedure Social History Smoking Status: Never smoker Hx Alcohol Use: Yes Alcohol type: beer and hard liquor Alcohol type Comment: 1/5 of alcohol a day Hx Substance Use: No Preferred Language: Faroese Communication Ability: Effective 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 Beliefs That Will Affect Care: None Current Living Situation: Significant Other Feels Safe at Home: Yes Safety Concerns: Feels Safe At This Time Assistive Devices: None Review of Systems Review of Systems: All systems reviewed & are unremarkable except as noted in HPI & below Physical Exam Constitutional: well nourished and + ill appearing; no acute distress Eyes: + scleral icterus Respiratory: normal respiratory effort; no respiratory distress Cardiovascular: Rate/Rhythm: + tachycardic Gastrointestinal (Abdomen): Inspection/Auscultation: abdomen normal to inspection and normal bowel sounds Skin: no rashes, warm and dry Results & Data ([facility]) Vital Signs (Past 12 Hours) Vital Signs Temp Pulse Pulse Resp BP BP Pulse Ox 11/17/21 05:00 119 H 25 H 93 11/17/21 05:00 110/82 11/17/21 04:30 131 H 22 129/89 94 11/17/21 04:00 36.9 C 121 H 21 114/77 93 11/17/21 03:30 131 H 18 125/85 92 11/17/21 03:00 131 H 19 112/79 92 11/17/21 02:30 131 H 21 115/84 92 11/17/21 02:37 129 H 11/17/21 02:00 130 H 24 93 11/17/21 02:00 117/77 11/17/21 01:45 130 H 23 92 11/17/21 01:30 130 H 23 93 11/17/21 01:30 107/76 11/17/21 01:15 129 H 35 H 91 11/17/21 01:00 129 H 18 96 11/17/21 01:00 121/82 11/17/21 00:45 129 H 37 H 84 L 11/17/21 00:30 130 H 23 92 11/17/21 00:30 107/75 11/17/21 00:15 130 H 23 93 11/17/21 00:00 124 H 27 H 93 11/17/21 00:00 102/72 11/16/21 23:45 130 H 28 H 93 11/16/21 23:36 104/80 11/16/21 23:36 130 H 21 91 11/16/21 23:31 120 H 6 L 11/16/21 23:15 114 H 18 11/16/21 23:15 80/62 L 11/16/21 23:51 36.8 C 131 H 24 104/80 92 11/16/21 23:39 11/16/21 23:00 116 H 20 11/16/21 23:00 99/66 L 11/16/21 22:45 115 H 26 H 91 11/16/21 22:45 96/69 L 11/16/21 22:30 117 H 22 11/16/21 22:30 106/70 11/16/21 22:23 99/70 L 11/16/21 22:23 113 H 23 94 11/16/21 22:15 111 H 28 H 11/16/21 22:15 90/65 L 11/16/21 22:00 119 H 31 H 103/72 95 11/16/21 21:45 115 H 20 93 11/16/21 21:45 120/74 Pulse Ox O2 Del Method O2 Del Method 11/17/21 05:00 11/17/21 05:00 11/17/21 04:30 Room Air 11/17/21 04:00 Room Air 11/17/21 03:30 Room Air 11/17/21 03:00 Room Air 11/17/21 02:30 Room Air 11/17/21 02:37 11/17/21 02:00 11/17/21 02:00 11/17/21 01:45 11/17/21 01:30 11/17/21 01:30 11/17/21 01:15 11/17/21 01:00 11/17/21 01:00 11/17/21 00:45 11/17/21 00:30 11/17/21 00:30 11/17/21 00:15 11/17/21 00:00 11/17/21 00:00 11/16/21 23:45 11/16/21 23:36 11/16/21 23:36 11/16/21 23:31 11/16/21 23:15 11/16/21 23:15 11/16/21 23:51 Room Air 11/16/21 23:39 92 Room Air 11/16/21 23:00 11/16/21 23:00 11/16/21 22:45 11/16/21 22:45 11/16/21 22:30 11/16/21 22:30 11/16/21 22:23 11/16/21 22:23 11/16/21 22:15 11/16/21 22:15 11/16/21 22:00 11/16/21 21:45 11/16/21 21:45 Laboratory Results 11/17/21 11/17/21 11/17/21 Range/Units 07:47 07:47 05:37 WBC (4.8-10.8) K/ul RBC (4.63-6.08) M/uL Hgb (14.0-18.0) g/dl POC Hgb (14.0-18.0) g/dl Hct (40.1-51.0) % POC Hct (42-52) % MCV (80.0-100.0) fL MCH (25.0-34.0) pg MCHC (32.0-36.0) g/dL RDW Std Deviation (36.4-46.3) fL RDW Coeff of Yonatan (11.5-14.5) % Plt Count (130-400) K/uL MPV (9.4-12.4) fL Immature Gran % (Auto) % Neut % (Auto) % Lymph % (Auto) % [place] % (Auto) % Eos % (Auto) % Baso % (Auto) % Reticulocyte % (Auto) (0.5-2.0) % Neut # (Auto) (1.4-6.5) K/uL Lymph # (Auto) (1.2-3.4) K/uL [place] # (Auto) (0.24-0.82) K/uL Eos # (Auto) (0-0.50) K/uL Baso # (Auto) (0-0.2) K/uL Reticulocyte # (0.02-0.10) 10^6/uL Immature Gran # (Auto) (0.00-0.02) K/uL Absolute Nucleated RBC (0-0) K/uL Nucleated RBC % (auto) % Platelet Estimate (Normal) Target Cells PT 21.0 H (9.0-12.0) Seconds INR 2.0 H (0.9-1.1) APTT (21.0-31.0) Seconds PTT Ratio Fibrinogen Pending VBG pH (7.36-7.41) VBG pCO2 (38-50) mmHg VBG pO2 mmHg VBG HCO3 mmol/L VBG O2 Saturation % VBG Base Excess mEq/L POC Sodium (135-144) mmol/L Sodium (136-145) mmol/L POC Potassium (3.3-5.0) mmol/L Potassium (3.5-5.1) mmol/L POC Chloride (101-112) mmol/L Chloride (98-107) mmol/L Carbon Dioxide (21-32) mmol/L POC Total CO2 (24-31) mmol/L Anion Gap (3-11) POC Anion Gap (16-25) mmol/L POC BUN (7-18) mg/dl BUN Creatinine POC Creatinine (0.6-1.3) mg/dl Est Cr Clr Drug Dosing Est GFR ( Amer) Est GFR (Non-Af Amer) BUN/Creatinine Ratio Glucose (70-99(Fasting)) mg/dl POC Glucose (other) (70-99) mg/dl Lactate Calcium (8.5-10.1) mg/dl POC Ioniz Calcium Carrie (1.12-1.32) mmol/l Phosphorus (2.5-4.9) mg/dl Magnesium (1.7-2.4) mg/dl Iron (35-175) mcg/dl Transferrin (200-360) mg/dl Ferritin (8-388) ng/ml Total Bilirubin (0.2-1.0) mg/dl Direct Bilirubin (0-0.2) mg/dl AST (13-39) U/L ALT (7-52) U/L Alkaline Phosphatase Ammonia Troponin I High Sens (0-20) pg/ml Total Protein (6.0-8.3) gm/dl Albumin (3.4-5.0) gm/dl Globulin (2.5-4.0) gm/dl Albumin/Globulin Ratio (0.9-2) Lipase Vitamin B12 (180-914) pg/ml Folate 6.33 Procalcitonin (0-0.5) ng/ml Urine Color Urine Appearance (Clear) Urine pH (4.5-7.5) Ur Specific [place] (1.000-1.030) Urine Protein (Negative) Urine Glucose (UA) (Negative) Urine Ketones (Negative) Urine Blood (Negative) Urine Nitrite (Negative) Urine Bilirubin (Negative) Urine Urobilinogen (Negative) Ur Leukocyte Esterase (Negative) Urine RBC (0-4) /hpf Urine WBC (0-5) /hpf Ur Epithelial Cells (0-5) /lpf Urine Bacteria (Negative) Nasal Screen MRSA (PCR) (Negative) Salicylates Acetaminophen Ethyl Alcohol mg/dL (<10.0) mg/dl Hepatitis A IgM Ab Hep Bs Antigen Hep Bs Ag Confirmation Hep B Core IgM Ab Hepatitis C Ab (EIA) Hep C Ab Signal/Cutoff SARS-CoV-2, RNA, NAAT (NEGATIVE) Miscellaneous Test Miscellaneous Test 2 11/17/21 11/17/21 11/17/21 Range/Units 05:37 05:37 01:00 WBC 9.70 (4.8-10.8) K/ul RBC 2.89 L (4.63-6.08) M/uL Hgb 10.3 L (14.0-18.0) g/dl POC Hgb (14.0-18.0) g/dl Hct 28.8 L (40.1-51.0) % POC Hct (42-52) % MCV 99.7 (80.0-100.0) fL MCH 35.6 H (25.0-34.0) pg MCHC 35.8 (32.0-36.0) g/dL RDW Std Deviation 55.8 H (36.4-46.3) fL RDW Coeff of Yonatan 15.6 H (11.5-14.5) % Plt Count 108 L (130-400) K/uL MPV 11.3 (9.4-12.4) fL Immature Gran % (Auto) 2.7 % Neut % (Auto) 82.3 % Lymph % (Auto) 6.3 % [place] % (Auto) 7.8 % Eos % (Auto) 0.7 % Baso % (Auto) 0.2 % Reticulocyte % (Auto) 2.1 H (0.5-2.0) % Neut # (Auto) 7.98 H (1.4-6.5) K/uL Lymph # (Auto) 0.61 L (1.2-3.4) K/uL [place] # (Auto) 0.76 (0.24-0.82) K/uL Eos # (Auto) 0.07 (0-0.50) K/uL Baso # (Auto) 0.02 (0-0.2) K/uL Reticulocyte # 0.06 (0.02-0.10) 10^6/uL Immature Gran # (Auto) 0.26 H (0.00-0.02) K/uL Absolute Nucleated RBC 0.09 H (0-0) K/uL Nucleated RBC % (auto) 0.9 % Platelet Estimate (Normal) Target Cells PT (9.0-12.0) Seconds INR (0.9-1.1) APTT (21.0-31.0) Seconds PTT Ratio Fibrinogen VBG pH (7.36-7.41) VBG pCO2 (38-50) mmHg VBG pO2 mmHg VBG HCO3 mmol/L VBG O2 Saturation % VBG Base Excess mEq/L POC Sodium (135-144) mmol/L Sodium 127 L (136-145) mmol/L POC Potassium (3.3-5.0) mmol/L Potassium 3.6 (3.5-5.1) mmol/L POC Chloride (101-112) mmol/L Chloride 91 L (98-107) mmol/L Carbon Dioxide 22 (21-32) mmol/L POC Total CO2 (24-31) mmol/L Anion Gap 14 H (3-11) POC Anion Gap (16-25) mmol/L POC BUN (7-18) mg/dl BUN 37 H Creatinine TNP POC Creatinine (0.6-1.3) mg/dl Est Cr Clr Drug Dosing Not Reportable Est GFR ( Amer) Not Reportable Est GFR (Non-Af Amer) Not Reportable BUN/Creatinine Ratio TNP Glucose 186 H (70-99(Fasting)) mg/dl POC Glucose (other) (70-99) mg/dl Lactate Calcium 8.2 L (8.5-10.1) mg/dl POC Ioniz Calcium Carrie (1.12-1.32) mmol/l Phosphorus 1.1 L* (2.5-4.9) mg/dl Magnesium 2.2 (1.7-2.4) mg/dl Iron 101 (35-175) mcg/dl Transferrin < 95 L (200-360) mg/dl Ferritin 1833.0 H (8-388) ng/ml Total Bilirubin 35.5 H (0.2-1.0) mg/dl Direct Bilirubin 20.8 H (0-0.2) mg/dl AST 134 H (13-39) U/L ALT 87 H (7-52) U/L Alkaline Phosphatase TNP Ammonia Troponin I High Sens (0-20) pg/ml Total Protein 5.1 L (6.0-8.3) gm/dl Albumin 2.6 L (3.4-5.0) gm/dl Globulin (2.5-4.0) gm/dl Albumin/Globulin Ratio (0.9-2) Lipase Vitamin B12 (180-914) pg/ml Folate Procalcitonin (0-0.5) ng/ml Urine Color Brown Urine Appearance Slightly Cloudy (Clear) Urine pH (4.5-7.5) Ur Specific [place] 1.021 (1.000-1.030) Urine Protein (Negative) Urine Glucose (UA) (Negative) Urine Ketones (Negative) Urine Blood (Negative) Urine Nitrite (Negative) Urine Bilirubin (Negative) Urine Urobilinogen (Negative) Ur Leukocyte Esterase (Negative) Urine RBC 0-4 (0-4) /hpf Urine WBC 5-10 H (0-5) /hpf Ur Epithelial Cells >30 H (0-5) /lpf Urine Bacteria 1+ H (Negative) Nasal Screen MRSA (PCR) (Negative) Salicylates Acetaminophen Ethyl Alcohol mg/dL (<10.0) mg/dl Hepatitis A IgM Ab Hep Bs Antigen Hep Bs Ag Confirmation Hep B Core IgM Ab Hepatitis C Ab (EIA) Hep C Ab Signal/Cutoff SARS-CoV-2, RNA, NAAT (NEGATIVE) Miscellaneous Test Miscellaneous Test 2 11/16/21 11/16/21 11/16/21 Range/Units 23:45 21:16 21:15 WBC (4.8-10.8) K/ul RBC (4.63-6.08) M/uL Hgb (14.0-18.0) g/dl POC Hgb (14.0-18.0) g/dl Hct (40.1-51.0) % POC Hct (42-52) % MCV (80.0-100.0) fL MCH (25.0-34.0) pg MCHC (32.0-36.0) g/dL RDW Std Deviation (36.4-46.3) fL RDW Coeff of Yonatan (11.5-14.5) % Plt Count (130-400) K/uL MPV (9.4-12.4) fL Immature Gran % (Auto) % Neut % (Auto) % Lymph % (Auto) % [place] % (Auto) % Eos % (Auto) % Baso % (Auto) % Reticulocyte % (Auto) (0.5-2.0) % Neut # (Auto) (1.4-6.5) K/uL Lymph # (Auto) (1.2-3.4) K/uL [place] # (Auto) (0.24-0.82) K/uL Eos # (Auto) (0-0.50) K/uL Baso # (Auto) (0-0.2) K/uL Reticulocyte # (0.02-0.10) 10^6/uL Immature Gran # (Auto) (0.00-0.02) K/uL Absolute Nucleated RBC (0-0) K/uL Nucleated RBC % (auto) % Platelet Estimate (Normal) Target Cells PT (9.0-12.0) Seconds INR (0.9-1.1) APTT (21.0-31.0) Seconds PTT Ratio Fibrinogen VBG pH 7.47 H (7.36-7.41) VBG pCO2 33 L (38-50) mmHg VBG pO2 50 mmHg VBG HCO3 24 mmol/L VBG O2 Saturation 86.7 % VBG Base Excess 0.9 mEq/L POC Sodium (135-144) mmol/L Sodium (136-145) mmol/L POC Potassium (3.3-5.0) mmol/L Potassium (3.5-5.1) mmol/L POC Chloride (101-112) mmol/L Chloride (98-107) mmol/L Carbon Dioxide (21-32) mmol/L POC Total CO2 (24-31) mmol/L Anion Gap (3-11) POC Anion Gap (16-25) mmol/L POC BUN (7-18) mg/dl BUN Creatinine POC Creatinine (0.6-1.3) mg/dl Est Cr Clr Drug Dosing Est GFR ( Amer) Est GFR (Non-Af Amer) BUN/Creatinine Ratio Glucose (70-99(Fasting)) mg/dl POC Glucose (other) (70-99) mg/dl Lactate Calcium (8.5-10.1) mg/dl POC Ioniz Calcium Carrie (1.12-1.32) mmol/l Phosphorus (2.5-4.9) mg/dl Magnesium (1.7-2.4) mg/dl Iron (35-175) mcg/dl Transferrin (200-360) mg/dl Ferritin (8-388) ng/ml Total Bilirubin (0.2-1.0) mg/dl Direct Bilirubin (0-0.2) mg/dl AST (13-39) U/L ALT (7-52) U/L Alkaline Phosphatase Ammonia Troponin I High Sens (0-20) pg/ml Total Protein (6.0-8.3) gm/dl Albumin (3.4-5.0) gm/dl Globulin (2.5-4.0) gm/dl Albumin/Globulin Ratio (0.9-2) Lipase Vitamin B12 (180-914) pg/ml Folate Procalcitonin 1.79 H (0-0.5) ng/ml Urine Color Urine Appearance (Clear) Urine pH (4.5-7.5) Ur Specific [place] (1.000-1.030) Urine Protein (Negative) Urine Glucose (UA) (Negative) Urine Ketones (Negative) Urine Blood (Negative) Urine Nitrite (Negative) Urine Bilirubin (Negative) Urine Urobilinogen (Negative) Ur Leukocyte Esterase (Negative) Urine RBC (0-4) /hpf Urine WBC (0-5) /hpf Ur Epithelial Cells (0-5) /lpf Urine Bacteria (Negative) Nasal Screen MRSA (PCR) Negative (Negative) Salicylates Acetaminophen Ethyl Alcohol mg/dL (<10.0) mg/dl Hepatitis A IgM Ab Hep Bs Antigen Hep Bs Ag Confirmation Hep B Core IgM Ab Hepatitis C Ab (EIA) Hep C Ab Signal/Cutoff SARS-CoV-2, RNA, NAAT (NEGATIVE) Miscellaneous Test Miscellaneous Test 2 11/16/21 11/16/21 11/16/21 Range/Units 21:15 20:55 19:05 WBC (4.8-10.8) K/ul RBC (4.63-6.08) M/uL Hgb (14.0-18.0) g/dl POC Hgb (14.0-18.0) g/dl Hct (40.1-51.0) % POC Hct (42-52) % MCV (80.0-100.0) fL MCH (25.0-34.0) pg MCHC (32.0-36.0) g/dL RDW Std Deviation (36.4-46.3) fL RDW Coeff of Yonatan (11.5-14.5) % Plt Count (130-400) K/uL MPV (9.4-12.4) fL Immature Gran % (Auto) % Neut % (Auto) % Lymph % (Auto) % [place] % (Auto) % Eos % (Auto) % Baso % (Auto) % Reticulocyte % (Auto) (0.5-2.0) % Neut # (Auto) (1.4-6.5) K/uL Lymph # (Auto) (1.2-3.4) K/uL [place] # (Auto) (0.24-0.82) K/uL Eos # (Auto) (0-0.50) K/uL Baso # (Auto) (0-0.2) K/uL Reticulocyte # (0.02-0.10) 10^6/uL Immature Gran # (Auto) (0.00-0.02) K/uL Absolute Nucleated RBC (0-0) K/uL Nucleated RBC % (auto) % Platelet Estimate (Normal) Target Cells PT (9.0-12.0) Seconds INR (0.9-1.1) APTT (21.0-31.0) Seconds PTT Ratio Fibrinogen VBG pH (7.36-7.41) VBG pCO2 (38-50) mmHg VBG pO2 mmHg VBG HCO3 mmol/L VBG O2 Saturation % VBG Base Excess mEq/L POC Sodium (135-144) mmol/L Sodium (136-145) mmol/L POC Potassium (3.3-5.0) mmol/L Potassium (3.5-5.1) mmol/L POC Chloride (101-112) mmol/L Chloride (98-107) mmol/L Carbon Dioxide (21-32) mmol/L POC Total CO2 (24-31) mmol/L Anion Gap (3-11) POC Anion Gap (16-25) mmol/L POC BUN (7-18) mg/dl BUN Creatinine POC Creatinine (0.6-1.3) mg/dl Est Cr Clr Drug Dosing Est GFR ( Amer) Est GFR (Non-Af Amer) BUN/Creatinine Ratio Glucose (70-99(Fasting)) mg/dl POC Glucose (other) (70-99) mg/dl Lactate TNP Calcium (8.5-10.1) mg/dl POC Ioniz Calcium Carrie (1.12-1.32) mmol/l Phosphorus (2.5-4.9) mg/dl Magnesium (1.7-2.4) mg/dl Iron (35-175) mcg/dl Transferrin (200-360) mg/dl Ferritin (8-388) ng/ml Total Bilirubin 33.8 H (0.2-1.0) mg/dl Direct Bilirubin 20.7 H (0-0.2) mg/dl AST 156 H (13-39) U/L ALT 89 H (7-52) U/L Alkaline Phosphatase TNP Ammonia TNP Troponin I High Sens (0-20) pg/ml Total Protein 4.9 L D (6.0-8.3) gm/dl Albumin 2.4 L (3.4-5.0) gm/dl Globulin (2.5-4.0) gm/dl Albumin/Globulin Ratio (0.9-2) Lipase Vitamin B12 (180-914) pg/ml Folate Procalcitonin (0-0.5) ng/ml Urine Color Urine Appearance (Clear) Urine pH (4.5-7.5) Ur Specific [place] (1.000-1.030) Urine Protein (Negative) Urine Glucose (UA) (Negative) Urine Ketones (Negative) Urine Blood (Negative) Urine Nitrite (Negative) Urine Bilirubin (Negative) Urine Urobilinogen (Negative) Ur Leukocyte Esterase (Negative) Urine RBC (0-4) /hpf Urine WBC (0-5) /hpf Ur Epithelial Cells (0-5) /lpf Urine Bacteria (Negative) Nasal Screen MRSA (PCR) (Negative) Salicylates Acetaminophen Ethyl Alcohol mg/dL (<10.0) mg/dl Hepatitis A IgM Ab Hep Bs Antigen Hep Bs Ag Confirmation Hep B Core IgM Ab Hepatitis C Ab (EIA) Hep C Ab Signal/Cutoff SARS-CoV-2, RNA, NAAT (NEGATIVE) Miscellaneous Test Miscellaneous Test 2 11/16/21 11/16/21 11/16/21 Range/Units 19:00 18:55 18:55 WBC (4.8-10.8) K/ul RBC (4.63-6.08) M/uL Hgb (14.0-18.0) g/dl POC Hgb (14.0-18.0) g/dl Hct (40.1-51.0) % POC Hct (42-52) % MCV (80.0-100.0) fL MCH (25.0-34.0) pg MCHC (32.0-36.0) g/dL RDW Std Deviation (36.4-46.3) fL RDW Coeff of Yonatan (11.5-14.5) % Plt Count (130-400) K/uL MPV (9.4-12.4) fL Immature Gran % (Auto) % Neut % (Auto) % Lymph % (Auto) % [place] % (Auto) % Eos % (Auto) % Baso % (Auto) % Reticulocyte % (Auto) (0.5-2.0) % Neut # (Auto) (1.4-6.5) K/uL Lymph # (Auto) (1.2-3.4) K/uL [place] # (Auto) (0.24-0.82) K/uL Eos # (Auto) (0-0.50) K/uL Baso # (Auto) (0-0.2) K/uL Reticulocyte # (0.02-0.10) 10^6/uL Immature Gran # (Auto) (0.00-0.02) K/uL Absolute Nucleated RBC (0-0) K/uL Nucleated RBC % (auto) % Platelet Estimate (Normal) Target Cells PT (9.0-12.0) Seconds INR (0.9-1.1) APTT (21.0-31.0) Seconds PTT Ratio Fibrinogen VBG pH (7.36-7.41) VBG pCO2 (38-50) mmHg VBG pO2 mmHg VBG HCO3 mmol/L VBG O2 Saturation % VBG Base Excess mEq/L POC Sodium (135-144) mmol/L Sodium (136-145) mmol/L POC Potassium (3.3-5.0) mmol/L Potassium (3.5-5.1) mmol/L POC Chloride (101-112) mmol/L Chloride (98-107) mmol/L Carbon Dioxide (21-32) mmol/L POC Total CO2 (24-31) mmol/L Anion Gap (3-11) POC Anion Gap (16-25) mmol/L POC BUN (7-18) mg/dl BUN Creatinine POC Creatinine (0.6-1.3) mg/dl Est Cr Clr Drug Dosing Est GFR ( Amer) Est GFR (Non-Af Amer) BUN/Creatinine Ratio Glucose (70-99(Fasting)) mg/dl POC Glucose (other) (70-99) mg/dl Lactate Calcium (8.5-10.1) mg/dl POC Ioniz Calcium Carrie (1.12-1.32) mmol/l Phosphorus (2.5-4.9) mg/dl Magnesium (1.7-2.4) mg/dl Iron (35-175) mcg/dl Transferrin (200-360) mg/dl Ferritin (8-388) ng/ml Total Bilirubin (0.2-1.0) mg/dl Direct Bilirubin (0-0.2) mg/dl AST (13-39) U/L ALT (7-52) U/L Alkaline Phosphatase Ammonia Troponin I High Sens (0-20) pg/ml Total Protein (6.0-8.3) gm/dl Albumin (3.4-5.0) gm/dl Globulin (2.5-4.0) gm/dl Albumin/Globulin Ratio (0.9-2) Lipase Vitamin B12 1344 H (180-914) pg/ml Folate 4.30 L Cancelled Procalcitonin (0-0.5) ng/ml Urine Color Urine Appearance (Clear) Urine pH (4.5-7.5) Ur Specific [place] (1.000-1.030) Urine Protein (Negative) Urine Glucose (UA) (Negative) Urine Ketones (Negative) Urine Blood (Negative) Urine Nitrite (Negative) Urine Bilirubin (Negative) Urine Urobilinogen (Negative) Ur Leukocyte Esterase (Negative) Urine RBC (0-4) /hpf Urine WBC (0-5) /hpf Ur Epithelial Cells (0-5) /lpf Urine Bacteria (Negative) Nasal Screen MRSA (PCR) (Negative) Salicylates Acetaminophen Ethyl Alcohol mg/dL (<10.0) mg/dl Hepatitis A IgM Ab Hep Bs Antigen Hep Bs Ag Confirmation Hep B Core IgM Ab Hepatitis C Ab (EIA) Hep C Ab Signal/Cutoff SARS-CoV-2, RNA, NAAT NEGATIVE (NEGATIVE) Miscellaneous Test Miscellaneous Test 2 11/16/21 11/16/21 11/16/21 Range/Units 18:55 18:55 18:55 WBC (4.8-10.8) K/ul RBC (4.63-6.08) M/uL Hgb (14.0-18.0) g/dl POC Hgb (14.0-18.0) g/dl Hct (40.1-51.0) % POC Hct (42-52) % MCV (80.0-100.0) fL MCH (25.0-34.0) pg MCHC (32.0-36.0) g/dL RDW Std Deviation (36.4-46.3) fL RDW Coeff of Yonatan (11.5-14.5) % Plt Count (130-400) K/uL MPV (9.4-12.4) fL Immature Gran % (Auto) % Neut % (Auto) % Lymph % (Auto) % [place] % (Auto) % Eos % (Auto) % Baso % (Auto) % Reticulocyte % (Auto) (0.5-2.0) % Neut # (Auto) (1.4-6.5) K/uL Lymph # (Auto) (1.2-3.4) K/uL [place] # (Auto) (0.24-0.82) K/uL Eos # (Auto) (0-0.50) K/uL Baso # (Auto) (0-0.2) K/uL Reticulocyte # (0.02-0.10) 10^6/uL Immature Gran # (Auto) (0.00-0.02) K/uL Absolute Nucleated RBC (0-0) K/uL Nucleated RBC % (auto) % Platelet Estimate (Normal) Target Cells PT (9.0-12.0) Seconds INR (0.9-1.1) APTT (21.0-31.0) Seconds PTT Ratio Fibrinogen VBG pH (7.36-7.41) VBG pCO2 (38-50) mmHg VBG pO2 mmHg VBG HCO3 mmol/L VBG O2 Saturation % VBG Base Excess mEq/L POC Sodium (135-144) mmol/L Sodium (136-145) mmol/L POC Potassium (3.3-5.0) mmol/L Potassium (3.5-5.1) mmol/L POC Chloride (101-112) mmol/L Chloride (98-107) mmol/L Carbon Dioxide (21-32) mmol/L POC Total CO2 (24-31) mmol/L Anion Gap (3-11) POC Anion Gap (16-25) mmol/L POC BUN (7-18) mg/dl BUN Creatinine POC Creatinine (0.6-1.3) mg/dl Est Cr Clr Drug Dosing Est GFR ( Amer) Est GFR (Non-Af Amer) BUN/Creatinine Ratio Glucose (70-99(Fasting)) mg/dl POC Glucose (other) (70-99) mg/dl Lactate Calcium (8.5-10.1) mg/dl POC Ioniz Calcium Carrie (1.12-1.32) mmol/l Phosphorus (2.5-4.9) mg/dl Magnesium (1.7-2.4) mg/dl Iron (35-175) mcg/dl Transferrin (200-360) mg/dl Ferritin (8-388) ng/ml Total Bilirubin (0.2-1.0) mg/dl Direct Bilirubin (0-0.2) mg/dl AST (13-39) U/L ALT (7-52) U/L Alkaline Phosphatase Ammonia Troponin I High Sens (0-20) pg/ml Total Protein (6.0-8.3) gm/dl Albumin (3.4-5.0) gm/dl Globulin (2.5-4.0) gm/dl Albumin/Globulin Ratio (0.9-2) Lipase Vitamin B12 (180-914) pg/ml Folate Procalcitonin (0-0.5) ng/ml Urine Color Urine Appearance (Clear) Urine pH (4.5-7.5) Ur Specific [place] (1.000-1.030) Urine Protein (Negative) Urine Glucose (UA) (Negative) Urine Ketones (Negative) Urine Blood (Negative) Urine Nitrite (Negative) Urine Bilirubin (Negative) Urine Urobilinogen (Negative) Ur Leukocyte Esterase (Negative) Urine RBC (0-4) /hpf Urine WBC (0-5) /hpf Ur Epithelial Cells (0-5) /lpf Urine Bacteria (Negative) Nasal Screen MRSA (PCR) (Negative) Salicylates TNP Acetaminophen TNP Ethyl Alcohol mg/dL 11.6 H (<10.0) mg/dl Hepatitis A IgM Ab Hep Bs Antigen Hep Bs Ag Confirmation Hep B Core IgM Ab Hepatitis C Ab (EIA) Hep C Ab Signal/Cutoff SARS-CoV-2, RNA, NAAT (NEGATIVE) Miscellaneous Test Pending Miscellaneous Test 2 Pending 11/16/21 11/16/21 11/16/21 Range/Units 18:31 17:45 17:45 WBC (4.8-10.8) K/ul RBC (4.63-6.08) M/uL Hgb (14.0-18.0) g/dl POC Hgb 12.6 L (14.0-18.0) g/dl Hct (40.1-51.0) % POC Hct 37 L (42-52) % MCV (80.0-100.0) fL MCH (25.0-34.0) pg MCHC (32.0-36.0) g/dL RDW Std Deviation (36.4-46.3) fL RDW Coeff of Yonatan (11.5-14.5) % Plt Count (130-400) K/uL MPV (9.4-12.4) fL Immature Gran % (Auto) % Neut % (Auto) % Lymph % (Auto) % [place] % (Auto) % Eos % (Auto) % Baso % (Auto) % Reticulocyte % (Auto) (0.5-2.0) % Neut # (Auto) (1.4-6.5) K/uL Lymph # (Auto) (1.2-3.4) K/uL [place] # (Auto) (0.24-0.82) K/uL Eos # (Auto) (0-0.50) K/uL Baso # (Auto) (0-0.2) K/uL Reticulocyte # (0.02-0.10) 10^6/uL Immature Gran # (Auto) (0.00-0.02) K/uL Absolute Nucleated RBC (0-0) K/uL Nucleated RBC % (auto) % Platelet Estimate (Normal) Target Cells PT (9.0-12.0) Seconds INR (0.9-1.1) APTT (21.0-31.0) Seconds PTT Ratio Fibrinogen VBG pH (7.36-7.41) VBG pCO2 (38-50) mmHg VBG pO2 mmHg VBG HCO3 mmol/L VBG O2 Saturation % VBG Base Excess mEq/L POC Sodium 128 L (135-144) mmol/L Sodium 126 L (136-145) mmol/L POC Potassium 3.7 (3.3-5.0) mmol/L Potassium 3.7 (3.5-5.1) mmol/L POC Chloride 92 L (101-112) mmol/L Chloride 89 L (98-107) mmol/L Carbon Dioxide 24 (21-32) mmol/L POC Total CO2 26 (24-31) mmol/L Anion Gap 13 H (3-11) POC Anion Gap 14.0 L (16-25) mmol/L POC BUN 36 H (7-18) mg/dl BUN TNP Creatinine TNP POC Creatinine 3.0 H (0.6-1.3) mg/dl Est Cr Clr Drug Dosing TNP Est GFR ( Amer) TNP Est GFR (Non-Af Amer) TNP BUN/Creatinine Ratio TNP Glucose 116 H (70-99(Fasting)) mg/dl POC Glucose (other) 127 H (70-99) mg/dl Lactate Calcium 9.5 (8.5-10.1) mg/dl POC Ioniz Calcium Carrie 1.18 (1.12-1.32) mmol/l Phosphorus (2.5-4.9) mg/dl Magnesium (1.7-2.4) mg/dl Iron (35-175) mcg/dl Transferrin (200-360) mg/dl Ferritin (8-388) ng/ml Total Bilirubin 39.0 H (0.2-1.0) mg/dl Direct Bilirubin (0-0.2) mg/dl AST 192 H (13-39) U/L ALT 110 H (7-52) U/L Alkaline Phosphatase TNP Ammonia Troponin I High Sens 14.2 (0-20) pg/ml Total Protein 5.9 L (6.0-8.3) gm/dl Albumin 2.9 L (3.4-5.0) gm/dl Globulin 3.0 (2.5-4.0) gm/dl Albumin/Globulin Ratio 1.0 (0.9-2) Lipase TNP Vitamin B12 (180-914) pg/ml Folate Procalcitonin (0-0.5) ng/ml Urine Color Urine Appearance (Clear) Urine pH (4.5-7.5) Ur Specific [place] (1.000-1.030) Urine Protein (Negative) Urine Glucose (UA) (Negative) Urine Ketones (Negative) Urine Blood (Negative) Urine Nitrite (Negative) Urine Bilirubin (Negative) Urine Urobilinogen (Negative) Ur Leukocyte Esterase (Negative) Urine RBC (0-4) /hpf Urine WBC (0-5) /hpf Ur Epithelial Cells (0-5) /lpf Urine Bacteria (Negative) Nasal Screen MRSA (PCR) (Negative) Salicylates Acetaminophen Ethyl Alcohol mg/dL (<10.0) mg/dl Hepatitis A IgM Ab Pending Hep Bs Antigen Pending Hep Bs Ag Confirmation Pending Hep B Core IgM Ab Pending Hepatitis C Ab (EIA) Pending Hep C Ab Signal/Cutoff Pending SARS-CoV-2, RNA, NAAT (NEGATIVE) Miscellaneous Test Miscellaneous Test 2 11/16/21 11/16/21 Range/Units 17:45 17:45 WBC 9.04 (4.8-10.8) K/ul RBC 3.49 L (4.63-6.08) M/uL Hgb 12.5 L (14.0-18.0) g/dl POC Hgb (14.0-18.0) g/dl Hct 35.2 L (40.1-51.0) % POC Hct (42-52) % MCV 100.9 H (80.0-100.0) fL MCH 35.8 H (25.0-34.0) pg MCHC 35.5 (32.0-36.0) g/dL RDW Std Deviation 56.9 H (36.4-46.3) fL RDW Coeff of Yonatan 15.5 H (11.5-14.5) % Plt Count 115 L (130-400) K/uL MPV 11.3 (9.4-12.4) fL Immature Gran % (Auto) 3.1 % Neut % (Auto) 77.1 % Lymph % (Auto) 8.0 % [place] % (Auto) 10.5 % Eos % (Auto) 0.9 % Baso % (Auto) 0.4 % Reticulocyte % (Auto) (0.5-2.0) % Neut # (Auto) 6.97 H (1.4-6.5) K/uL Lymph # (Auto) 0.72 L (1.2-3.4) K/uL [place] # (Auto) 0.95 H (0.24-0.82) K/uL Eos # (Auto) 0.08 (0-0.50) K/uL Baso # (Auto) 0.04 (0-0.2) K/uL Reticulocyte # (0.02-0.10) 10^6/uL Immature Gran # (Auto) 0.28 H (0.00-0.02) K/uL Absolute Nucleated RBC 0.12 H (0-0) K/uL Nucleated RBC % (auto) 1.3 % Platelet Estimate Decreased L (Normal) Target Cells 1+ PT 18.4 H (9.0-12.0) Seconds INR 1.8 H (0.9-1.1) APTT 38.5 H (21.0-31.0) Seconds PTT Ratio 1.4 Fibrinogen VBG pH (7.36-7.41) VBG pCO2 (38-50) mmHg VBG pO2 mmHg VBG HCO3 mmol/L VBG O2 Saturation % VBG Base Excess mEq/L POC Sodium (135-144) mmol/L Sodium (136-145) mmol/L POC Potassium (3.3-5.0) mmol/L Potassium (3.5-5.1) mmol/L POC Chloride (101-112) mmol/L Chloride (98-107) mmol/L Carbon Dioxide (21-32) mmol/L POC Total CO2 (24-31) mmol/L Anion Gap (3-11) POC Anion Gap (16-25) mmol/L POC BUN (7-18) mg/dl BUN Creatinine POC Creatinine (0.6-1.3) mg/dl Est Cr Clr Drug Dosing Est GFR ( Amer) Est GFR (Non-Af Amer) BUN/Creatinine Ratio Glucose (70-99(Fasting)) mg/dl POC Glucose (other) (70-99) mg/dl Lactate Calcium (8.5-10.1) mg/dl POC Ioniz Calcium [place] (1.12-1.32) mmol/l Phosphorus (2.5-4.9) mg/dl Magnesium (1.7-2.4) mg/dl Iron (35-175) mcg/dl Transferrin (200-360) mg/dl Ferritin (8-388) ng/ml Total Bilirubin (0.2-1.0) mg/dl Direct Bilirubin (0-0.2) mg/dl AST (13-39) U/L ALT (7-52) U/L Alkaline Phosphatase Ammonia Troponin I High Sens (0-20) pg/ml Total Protein (6.0-8.3) gm/dl Albumin (3.4-5.0) gm/dl Globulin (2.5-4.0) gm/dl Albumin/Globulin Ratio (0.9-2) Lipase Vitamin B12 (180-914) pg/ml Folate Procalcitonin (0-0.5) ng/ml Urine Color Urine Appearance (Clear) Urine pH (4.5-7.5) Ur Specific [place] (1.000-1.030) Urine Protein (Negative) Urine Glucose (UA) (Negative) Urine Ketones (Negative) Urine Blood (Negative) Urine Nitrite (Negative) Urine Bilirubin (Negative) Urine Urobilinogen (Negative) Ur Leukocyte Esterase (Negative) Urine RBC (0-4) /hpf Urine WBC (0-5) /hpf Ur Epithelial Cells (0-5) /lpf Urine Bacteria (Negative) Nasal Screen MRSA (PCR) (Negative) Salicylates Acetaminophen Ethyl Alcohol mg/dL (<10.0) mg/dl Hepatitis A IgM Ab Hep Bs Antigen Hep Bs Ag Confirmation Hep B Core IgM Ab Hepatitis C Ab (EIA) Hep C Ab Signal/Cutoff SARS-CoV-2, RNA, NAAT (NEGATIVE) Miscellaneous Test Miscellaneous Test 2
--- NOTE | 2021-11-17 09:48 | XRay Report ---
XR chest 1V portable HISTORY: 51 years-old Male confirm CVC line placement status post placement of right IJ central veno us catheter COMPARISON: 11/16/2021 TECHNIQUE: AP view of the chest FINDINGS: Cardiac silhouette is enlarged. Prior median sternotomy. Right IJ central venous catheter distal tip is noted in the expected location of the mid SVC. There is suggestion of an atrial exclusion device. No pneumothorax or large pleural effusion. Mild linear subsegmental bibasilar densities are unchanged . Chronic right clavicular fracture. IMPRESSION: Status post placement of a right IJ central venous catheter with distal tip in the expect ed location of the mid SVC. No postprocedural pneumothorax identified. ACT 112: Negative or not required by law. The above report was generated using voice recognition software. It may contain grammatical, syntax o r spelling errors. Electronically signed by: Keo Roque M.D. 11/17/2021 9:46 AM
[2021-11-17] MEDS ORDERED: STAT IV STA (09:56)
[2021-11-17 10:01] LABS: Fibrinogen 288 mg/dl (184-400)
[2021-11-17] MEDS ORDERED: PHYTONADIONE 10 MG in DEXTROSE 5% 50 ML IV ONE (10:11)
[2021-11-17] MEDS ORDERED: OCTREOTIDE ACETATE 50 MCG in SYRINGE 9.5 ML IV ONE (10:15)
[2021-11-17 10:16] LABS: Hematocrit (blood only) 29.2 % (40.1-51.0); Hemoglobin 10.4 g/dl (14.0-18.0); Mean Corpuscular Hemoglobin 35.6 pg (25.0-34.0); Mean Corpuscular Hgb Conc 35.6 g/dL (32.0-36.0); Mean Platelet Volume 11.9 fL (9.4-12.4); Nucleated RBC # (auto) 0.09 K/uL (0-0); Platelet Count 105 K/uL (130-400); RDW Coefficient of Variation 15.9 % (11.5-14.5); RDW Standard Deviation 56.9 fL (36.4-46.3); Red Blood Count 2.92 M/uL (4.63-6.08); White Blood Count 9.38 K/ul (4.8-10.8)
[2021-11-17] MEDS ORDERED: PHENYLEPHRINE 100MCG/ML 5ML SYR ONE (10:20)
[2021-11-17 10:25] LABS: Basophils # (auto) 0.05 K/uL (0-0.2); Basophils % (auto) 0.5 %; Eosinophils # (auto) 0.05 K/uL (0-0.50); Eosinophils % (auto) 0.5 %; Immature Granulocytes # (auto) 0.23 K/uL (0.00-0.02); Immature Granulocytes % (auto) 2.5 %; Lymphocytes % (auto) 6.4 %; Monocytes # (auto) 0.73 K/uL (0.24-0.82); Monocytes % (auto) 7.8 %; Neutrophils # (auto) 7.72 K/uL (1.4-6.5); Neutrophils % (auto) 82.3 %; Polychromasia 1+; Toxic Vacuolation 1+
[2021-11-17] MEDS: cefTRIAXone SODIUM 2,000 MG in DEXTROSE 5% 50 ML IV SCH (10:45)
[2021-11-17] MEDS: OCTREOTIDE ACETATE 500 MCG in DEXTROSE 5% 100 ML IV SCH ×2 (10:48→20:58)
--- NOTE | 2021-11-17 11:26 | Anesthesiology Consultation ---
Date of Service November 17, 2021 Assessment & Plan (1) Encounter for pre-operative examination: Chart Review Chart Review: Acceptable Risk for Surgery and Patient NOT seen in Pre Admission Testing Patient acutely ill, coagulopathic, jaundiced with A fib with RVR. No type and screen seen on patient so ordered one STAT in case transfusion is necessary. Noted oozing from central line site. Patient had just received another dose of IV Vitamin K. SpO2 in low 90's on RA. He will required GETA for procedure and patient aware that we might not be able to extubated after the procedure depending on his respiratory status. Patient agrees with plan and consented for GETA. Consults Requested none History Surgery Operation Date: 11/17/21 13:40 Proposed Procedures p Esophagogastroduodenoscopy - Jose De Anda MD Operation Date: 11/17/21 17:25 Proposed Procedures p Esophagogastroduodenoscopy Dr Constantino - Jose De Anda MD Height/Weight Height: 6 ft Weight: 104.7 kg Allergies Allergy/AdvReac Type Severity Reaction Status Date / Time No Known Allergies Allergy Unverified 11/16/21 21:13 Medications Home Medications Medication Instructions Recorded Confirmed Last Taken carvedilol 12.5 mg tablet 12.5 mg PO DAILY 02/15/21 11/16/21 Unknown omeprazole 20 mg capsule,delayed 20 mg PO DAILY 02/15/21 11/16/21 Unknown release Active Medications Generic Name Dose Route Start Last Admin Trade Name Freq PRN Reason Stop Dose Admin Pantoprazole Sodium 40 mg/ 10 mls @ 5 mls/min 11/16/21 22:00 11/17/21 08:48 Syringe IV 12/16/21 21:59 5 mls/min BID MAYRA Administration Norepinephrine Bitartrate 4 mg in 250 mls @ 19.688 mls/hr 11/16/21 22:00 11/17/21 11:43 Levophed/D5w IV 12/16/21 21:59 Not Given .[id number] MAYRA Protocol 0.05 MCG/KG/MIN Acetylcysteine 10,000 mg/ 1,050 mls @ 62.5 mls/hr 11/17/21 06:00 11/17/21 06:25 Dextrose IV 11/17/21 22:47 62.5 mls/hr ONCE ONE Administration Protocol Methylprednisolone 32.5 mg/ 0.52 mls @ 1.5 mls/min 11/16/21 23:45 11/17/21 08:48 Syringe IV 12/16/21 23:44 1.5 mls/min DAILY MAYRA Administration Ceftriaxone Sodium 2,000 mg/ 70 mls @ 100 mls/hr 11/17/21 09:00 11/17/21 11:44 Dextrose IV 11/19/21 08:59 Infused Q24H MAYRA Titration Protocol Albumin Human 25 gm in 100 mls @ 50 mls/hr 11/17/21 00:30 11/17/21 10:39 Albumin 25% 100 Ml IV 11/20/21 00:29 Infused Q8H MAYRA Infusion Folic Acid 1 mg/ Syringe 10 mls @ 5 mls/min 11/17/21 09:00 11/17/21 08:48 IV 12/17/21 08:59 5 mls/min QAM MAYRA Administration Thiamine HCl 500 mg/ Sodium 55 mls @ 220 mls/hr 11/17/21 01:00 11/17/21 02:20 Chloride IV 11/20/21 00:29 Infused Q8H MAYRA Infusion Octreotide Acetate 500 mcg/ 100.5 mls @ 10.05 mls/hr 11/17/21 10:15 11/17/21 10:48 Dextrose IV 12/17/21 10:14 50 mcg/hr .Q10H MAYRA 10.1 mls/hr Administration 50 MCG/HR NPO Date Last Intake of Fluids: 11/17/21 Time Last Intake of Fluids: 00:01 Date Last Intake of Solids: 11/14/21 Past Medical History Medical History (Updated 11/17/21 @ 11:45 by Sabino Cruz MD) A-fib Acute alcoholic hepatitis Alcohol abuse Cardiomyopathy Hepatorenal syndrome History of cardioversion Hypotension Jaundice due to hepatitis No pertinent family history Sepsis A fib with RVR present this AM on ECG. Exercise / Class Metabolic Activity III < 4 Walking/Shop/Light housework Past Surgical History Surgical History H/O maze procedure Past Anesthesia History No Hx of Anesthesia Complications and No Family Hx of Anesthesia Complications Social History Smoking Status: Never smoker Hx Alcohol Use: Yes Alcohol type: beer and hard liquor alcohol intake frequency: 3 or more drinks per day Hx Substance Use: No Physical Exam Vital Signs Last Vital Signs Temp 36.9 C 11/17/21 04:00 Pulse 119 H 11/17/21 08:00 Resp 25 H 11/17/21 05:00 BP 110/82 11/17/21 05:00 Pulse Ox 92 11/17/21 08:00 O2 Del Method 11/17/21 08:00 Testing Laboratory Results 11/17/21 09:46 11/17/21 05:37 PT 21.0 Seconds (9.0-12.0) H 11/17/21 07:47 INR 2.0 (0.9-1.1) H 11/17/21 07:47 APTT 38.5 Seconds (21.0-31.0) H 11/16/21 17:45 Urine Color Brown 11/17/21 01:00 Urine Appearance Slightly Cloudy (Clear) 11/17/21 01:00 Urine pH (4.5-7.5) 11/17/21 01:00 Ur Specific [place] 1.021 (1.000-1.030) 11/17/21 01:00 Urine Protein (Negative) 11/17/21 01:00 Urine Glucose (UA) (Negative) 11/17/21 01:00 Urine Ketones (Negative) 11/17/21 01:00 Urine Nitrite (Negative) 11/17/21 01:00 Ur Leukocyte Esterase (Negative) 11/17/21 01:00 Urine RBC 0-4 /hpf (0-4) 11/17/21 01:00 Urine WBC 5-10 /hpf (0-5) H 11/17/21 01:00 Ur Epithelial Cells >30 /lpf (0-5) H 11/17/21 01:00 Electrocardiogram Atrial fibrillation with rapid ventricular response Possible Inferior infarct , age undetermined Abnormal ECG When compared with ECG of 16-NOV-2021 17:27, (unconfirmed) Atrial fibrillation has replaced Sinus rhythm Nonspecific T wave abnormality, improved in Lateral leads
[2021-11-17] MEDS: NOREPINEPHRINE/D5W 4 MG/250 ML PLCT IV SCH (11:43)
--- NOTE | 2021-11-17 11:54 | History & Physical Report ---
Date of Service November 17, 2021 Assessment & Plan Admission and Anticipated Discharge Date Admission Date: November 16, 2021 History of Present Illness Primary Care Provider: Job Cronin Dark stool, anemia, alcoholic liver disease, hypotenstion that has resolved with volume CV: RRR, tachy Resp: CTA Abd: soft A/p: EGDfor UGIB Allergies Allergy/AdvReac Type Severity Reaction Status Date / Time No Known Allergies Allergy Unverified 11/16/21 21:13 Home Medications Medication Instructions Recorded Confirmed Type carvedilol 12.5 mg tablet 12.5 mg PO DAILY 02/15/21 11/16/21 History omeprazole 20 mg capsule,delayed 20 mg PO DAILY 02/15/21 11/16/21 History release Past Med/Surg History Medical History (Updated 11/17/21 @ 11:45 by Sabino Cruz MD) A-fib Acute alcoholic hepatitis Alcohol abuse Cardiomyopathy Hepatorenal syndrome History of cardioversion Hypotension Jaundice due to hepatitis No pertinent family history Sepsis Surgical History H/O maze procedure Social History (Updated 11/16/21 @ 20:31 by Jose Charles) Smoking Status: Never smoker Hx Alcohol Use: Yes Alcohol type: beer and hard liquor Alcohol type Comment: 1 /5 of alcohol a day Hx Substance Use: No Preferred Language: [place] Communication Ability: Effective Shuttle Final Inspector Required: No Beliefs That Will Affect Care: None Current Living Situation: Significant Other Feels Safe at Home: Yes Safety Concerns: Feels Safe At This Time Assistive Devices: None Results & Data Results & Data ([facility]) Vital Signs (Past 12 Hours) Vital Signs Temp Pulse Pulse Resp BP BP Pulse Ox 11/17/21 11:24 36.8 C 98 H 20 126/85 91 11/17/21 08:00 11/17/21 08:00 11/17/21 08:00 119 H 11/17/21 05:00 119 H 25 H 93 11/17/21 05:00 110/82 11/17/21 04:30 131 H 22 129/89 94 11/17/21 04:00 36.9 C 121 H 21 114/77 93 11/17/21 03:30 131 H 18 125/85 92 11/17/21 03:00 131 H 19 112/79 92 11/17/21 02:30 131 H 21 115/84 92 11/17/21 02:37 129 H 11/17/21 02:00 130 H 24 93 11/17/21 02:00 117/77 11/17/21 01:45 130 H 23 92 11/17/21 01:30 130 H 23 93 11/17/21 01:30 107/76 11/17/21 01:15 129 H 35 H 91 11/17/21 01:00 129 H 18 96 11/17/21 01:00 121/82 11/17/21 00:45 129 H 37 H 84 L 11/17/21 00:30 130 H 23 92 11/17/21 00:30 107/75 11/17/21 00:15 130 H 23 93 11/17/21 00:00 124 H 27 H 93 11/17/21 00:00 102/72 Pulse Ox O2 Del Method O2 Del Method 11/17/21 11:24 Room Air 11/17/21 08:00 Room Air 11/17/21 08:00 92 Room Air 11/17/21 08:00 11/17/21 05:00 11/17/21 05:00 11/17/21 04:30 Room Air 11/17/21 04:00 Room Air 11/17/21 03:30 Room Air 11/17/21 03:00 Room Air 11/17/21 02:30 Room Air 11/17/21 02:37 11/17/21 02:00 11/17/21 02:00 11/17/21 01:45 11/17/21 01:30 11/17/21 01:30 11/17/21 01:15 11/17/21 01:00 11/17/21 01:00 11/17/21 00:45 11/17/21 00:30 11/17/21 00:30 11/17/21 00:15 11/17/21 00:00 11/17/21 00:00 Code Status & VTE Plan VTE Prophylaxis Plan VTE Prophylaxis will be ordered: Yes
[2021-11-17] MEDS: INSULIN ASPART PER UNIT SC SCH ×3 (12:06→22:30)
[2021-11-17] MEDS ORDERED: DEXTROSE 50% 50 ML SYRINGE IV PRN (12:45)
[2021-11-17] MEDS ORDERED: GLUCAGON FOR INJ 1 MG VIAL IM PRN (12:45)
[2021-11-17] MEDS ORDERED: GLUCOSE 40% GEL 15 GM TUBE PO PRN (12:45)
[2021-11-17] MEDS ORDERED: GLUCOSE 10 TAB/TUBE PO PRN (12:45)
[2021-11-17] MEDS ORDERED: CARBOHYDRATES FOR HYPOGLYCEMIA PO PRN (12:45)
--- NOTE | 2021-11-17 12:48 | GI REPORT ---
Patient Name: Alfonzo Leung Procedure Date: 11/17/2021 12:03 PM Date of : 1970 Admit Type: Inpatient Age: 51 Gender: Male Attending MD: Jose De Anda MD Procedure: Upper GI endoscopy Providers: Jose De Anda MD Referring MD: Carmine Abraham Md Indications: Melena Medicines: See the Anesthesia note for documentation of the administered medications Complications: No immediate complications. Estimated Blood Loss: Estimated blood loss: none. Procedure: Pre-Anesthesia Assessment: - ASA Grade Assessment: III - A patient with severe systemic disease. After obtaining informed consent, the endoscope was passed under direct vision. Throughout the procedure, the patient's blood pressure, pulse, and oxygen saturations were monitored continuously. The Endoscope was introduced through the mouth, and advanced to the second part of duodenum. The upper GI endoscopy was accomplished without difficulty. The patient tolerated the procedure well. 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 The Z line was irregular. There was mild portal gastropathy in the fundus and body. There was a small amount of bilious fluid in the stomach. The antrum was normal. The duodenum was normal. There was contact oozing. Recommendation: - Discharge patient to floor. See [facility] for details. Jose De Anda M.D. Jose De Anda MD 11/17/2021 12:47:44 PM This report has been signed electronically. Note Initiated On: 11/17/2021 12:03 PM Number of Addenda: 0 I attest to the content of the Intraoperative Record and orders documented therein, exceptions below {[id number]}
[2021-11-17] MEDS ORDERED: SUCCINYLCHOLINE CHLORIDE 20 MG/ML 10 ML VIAL IV ONE (12:51)
[2021-11-17] MEDS ORDERED: DEXAMETHASONE SOD INJ 4 MG/ML VIAL ONE (12:51)
[2021-11-17] MEDS ORDERED: ONDANSETRON INJ 2 MG/ML 2 ML VIAL ONE ×2 (12:51)
[2021-11-17] MEDS ORDERED: PROPOFOL IV EMULSION 10 MG/ML 20 ML VIAL IV ONE (12:51)
[2021-11-17] MEDS ORDERED: fentaNYL citrate 100 MCG/2 ML VIAL ONE (12:51)
[2021-11-17 13:33] LABS: Hematocrit (blood only) 28.6 % (40.1-51.0); Hemoglobin 9.7 g/dl (14.0-18.0); Mean Corpuscular Hemoglobin 34.8 pg (25.0-34.0); Mean Corpuscular Hgb Conc 33.9 g/dL (32.0-36.0); Mean Corpuscular Volume 102.5 fL (80.0-100.0); Mean Platelet Volume 11.6 fL (9.4-12.4); Nucleated RBC # (auto) 0.09 K/uL (0-0); Nucleated RBC % (auto) 0.9 %; Platelet Count 105 K/uL (130-400); RDW Coefficient of Variation 15.9 % (11.5-14.5); RDW Standard Deviation 58.6 fL (36.4-46.3); Red Blood Count 2.79 M/uL (4.63-6.08); White Blood Count 9.62 K/ul (4.8-10.8)
[2021-11-17 13:58] LABS: Basophils # (auto) 0.02 K/uL (0-0.2); Basophils % (auto) 0.2 %; Eosinophils # (auto) 0.04 K/uL (0-0.50); Eosinophils % (auto) 0.4 %; Immature Granulocytes # (auto) 0.21 K/uL (0.00-0.02); Immature Granulocytes % (auto) 2.2 %; Lymphocytes # (auto) 0.66 K/uL (1.2-3.4); Lymphocytes % (auto) 6.9 %; Monocytes # (auto) 0.64 K/uL (0.24-0.82); Monocytes % (auto) 6.7 %; Neutrophils # (auto) 8.05 K/uL (1.4-6.5); Neutrophils % (auto) 83.6 %
[2021-11-17 14:14] LABS: Anion Gap 15 (3-11); Blood Urea Nitrogen 37 mg/dl (6-23); Carbon Dioxide 21 mmol/L (21-32); Chloride 91 mmol/L (98-107); Glucose 147 mg/dl (70-99(Fasting)); Magnesium 2.1 mg/dl (1.7-2.4); Phosphorus 2.8 mg/dl (2.5-4.9); Potassium 3.7 mmol/L (3.5-5.1); Sodium 127 mmol/L (136-145)
--- NOTE | 2021-11-17 16:12 | Anesthesiology Progress Note ---
Date of Service November 17, 2021 Anesthesia Post Procedure Vital Signs Vital Signs: Temp Pulse Pulse Resp BP BP Pulse Ox 11/17/21 13:05 36.5 C 95 H 18 120/80 93 11/17/21 12:55 36.5 C 98 H 24 120/80 92 11/17/21 12:45 36.6 C 101 H 24 104/73 91 11/17/21 12:00 103 H 18 91 11/17/21 12:00 120/81 11/17/21 11:45 98 H 19 92 11/17/21 11:45 124/81 11/17/21 11:30 100 H 24 92 11/17/21 11:30 119/83 11/17/21 11:15 96 H 16 91 11/17/21 11:15 126/85 11/17/21 11:00 97 H 18 89 L 11/17/21 11:00 120/89 11/17/21 10:45 104 H 17 94 11/17/21 10:45 123/81 11/17/21 10:30 103 H 23 94 11/17/21 10:30 121/82 11/17/21 10:15 104 H 18 93 11/17/21 10:15 127/97 11/17/21 10:00 108 H 19 93 11/17/21 10:00 117/80 11/17/21 09:45 108 H 18 92 11/17/21 09:45 110/82 11/17/21 09:30 107 H 20 93 11/17/21 09:30 124/84 11/17/21 09:15 108 H 18 93 11/17/21 09:15 109/78 11/17/21 09:00 108 H 21 92 11/17/21 09:00 118/77 11/17/21 08:45 120 H 22 94 11/17/21 08:45 109/85 11/17/21 08:30 105 H 21 94 11/17/21 08:30 116/84 11/17/21 08:15 108 H 22 94 11/17/21 08:15 110/83 11/17/21 08:00 119 H 19 93 11/17/21 08:00 121/76 11/17/21 07:45 112 H 16 92 11/17/21 07:45 117/85 11/17/21 07:30 120 H 17 95 09/15/22 07:30 118/82 11/17/21 07:15 112 H 21 94 11/17/21 07:01 120 H 19 94 11/17/21 07:01 120/88 11/17/21 07:00 112 H 27 H 93 11/17/21 06:45 124 H 20 95 11/17/21 06:30 105 H 18 91 11/17/21 06:30 115/88 11/17/21 06:15 112 H 23 91 11/17/21 06:00 111 H 20 92 11/17/21 06:00 122/81 11/17/21 05:45 126 H 25 H 93 11/17/21 05:30 119 H 22 92 11/17/21 11:24 36.8 C 98 H 20 126/85 91 11/17/21 08:00 11/17/21 08:00 11/17/21 08:00 119 H 11/17/21 05:00 119 H 25 H 93 11/17/21 05:00 110/82 11/17/21 04:30 131 H 22 129/89 94 11/17/21 04:00 36.9 C 121 H 21 114/77 93 11/17/21 03:30 131 H 18 125/85 92 11/17/21 03:00 131 H 19 112/79 92 11/17/21 02:30 131 H 21 115/84 92 11/17/21 02:37 129 H 11/17/21 02:00 130 H 24 93 11/17/21 02:00 117/77 11/17/21 01:45 130 H 23 92 11/17/21 01:30 130 H 23 93 11/17/21 01:30 107/76 11/17/21 01:15 129 H 35 H 91 11/17/21 01:00 129 H 18 96 11/17/21 01:00 121/82 11/17/21 00:45 129 H 37 H 84 L 11/17/21 00:30 130 H 23 92 11/17/21 00:30 107/75 11/17/21 00:15 130 H 23 93 11/17/21 00:00 124 H 27 H 93 11/17/21 00:00 102/72 11/16/21 23:45 130 H 28 H 93 11/16/21 23:36 104/80 11/16/21 23:36 130 H 21 91 11/16/21 23:31 120 H 6 L 11/16/21 23:15 114 H 18 11/16/21 23:15 80/62 L 11/16/21 23:51 36.8 C 131 H 24 104/80 92 11/16/21 23:39 11/16/21 23:00 116 H 20 11/16/21 23:00 99/66 L 11/16/21 22:45 115 H 26 H 91 11/16/21 22:45 96/69 L 11/16/21 22:30 117 H 22 11/16/21 22:30 106/70 11/16/21 22:23 99/70 L 11/16/21 22:23 113 H 23 94 11/16/21 22:15 111 H 28 H 11/16/21 22:15 90/65 L 11/16/21 22:00 119 H 31 H 103/72 95 11/16/21 21:45 115 H 20 93 11/16/21 21:45 120/74 11/16/21 21:30 124 H 20 11/16/21 21:15 129 H 21 11/16/21 21:15 94/65 L 11/16/21 21:09 111/58 L 11/16/21 21:09 116 H 24 94 11/16/21 21:00 120 H 24 11/16/21 21:00 87/61 L 11/16/21 20:54 97/62 L 11/16/21 20:54 118 H 22 11/16/21 20:45 119 H 26 H 11/16/21 20:45 87/62 L 11/16/21 20:35 94/67 L 11/16/21 20:35 120 H 23 95 11/16/21 20:30 120 H 24 95 11/16/21 20:30 95/66 L 11/16/21 20:26 82/65 L 11/16/21 20:26 114 H 20 92 11/16/21 20:15 129 H 22 95 11/16/21 20:15 105/74 11/16/21 20:00 116 H 24 94 11/16/21 20:00 100/69 11/16/21 17:16 94 11/16/21 19:50 123 H 23 94 11/16/21 19:45 129 H 23 94 11/16/21 19:45 98/68 L 11/16/21 19:44 94/69 L 11/16/21 19:44 124 H 20 94 11/16/21 19:40 124 H 23 94 11/16/21 19:30 130 H 23 95 11/16/21 19:30 93/68 L 11/16/21 19:26 95 11/16/21 19:26 99/69 L 11/16/21 19:10 129 H 22 11/16/21 19:00 129 H 22 11/16/21 18:50 129 H 27 H 11/16/21 18:40 129 H 22 11/16/21 18:30 129 H 22 11/16/21 18:30 91/59 L 11/16/21 18:20 128 H 16 11/16/21 18:10 130 H 22 95 11/16/21 18:00 130 H 24 95 11/16/21 18:00 93/62 L 11/16/21 17:50 130 H 27 H 96 11/16/21 17:49 131 H 26 H 97 11/16/21 17:14 36.4 C L 131 H 16 91/61 L 97 Pulse Ox O2 Del Method O2 Del Method O2 Flow Rate 11/17/21 13:05 Oxymask 4 11/17/21 12:55 Oxymask 4 11/17/21 12:45 Oxymask 4 11/17/21 12:00 11/17/21 12:00 11/17/21 11:45 11/17/21 11:45 11/17/21 11:30 11/17/21 11:30 11/17/21 11:15 11/17/21 11:15 11/17/21 11:00 11/17/21 11:00 11/17/21 10:45 11/17/21 10:45 11/17/21 10:30 11/17/21 10:30 11/17/21 10:15 11/17/21 10:15 11/17/21 10:00 11/17/21 10:00 11/17/21 09:45 11/17/21 09:45 11/17/21 09:30 11/17/21 09:30 11/17/21 09:15 11/17/21 09:15 11/17/21 09:00 11/17/21 09:00 11/17/21 08:45 11/17/21 08:45 11/17/21 08:30 11/17/21 08:30 11/17/21 08:15 11/17/21 08:15 11/17/21 08:00 11/17/21 08:00 11/17/21 07:45 11/17/21 07:45 11/17/21 07:30 11/17/21 07:30 11/17/21 07:15 11/17/21 07:01 11/17/21 07:01 11/17/21 07:00 11/17/21 06:45 11/17/21 06:30 11/17/21 06:30 11/17/21 06:15 11/17/21 06:00 11/17/21 06:00 11/17/21 05:45 11/17/21 05:30 11/17/21 11:24 Room Air 11/17/21 08:00 Room Air 11/17/21 08:00 92 Room Air 11/17/21 08:00 11/17/21 05:00 11/17/21 05:00 11/17/21 04:30 Room Air 11/17/21 04:00 Room Air 11/17/21 03:30 Room Air 11/17/21 03:00 Room Air 11/17/21 02:30 Room Air 11/17/21 02:37 11/17/21 02:00 11/17/21 02:00 11/17/21 01:45 11/17/21 01:30 11/17/21 01:30 11/17/21 01:15 11/17/21 01:00 11/17/21 01:00 11/17/21 00:45 11/17/21 00:30 11/17/21 00:30 11/17/21 00:15 11/17/21 00:00 11/17/21 00:00 11/16/21 23:45 11/16/21 23:36 11/16/21 23:36 11/16/21 23:31 11/16/21 23:15 11/16/21 23:15 11/16/21 23:51 Room Air 11/16/21 23:39 92 Room Air 11/16/21 23:00 11/16/21 23:00 11/16/21 22:45 11/16/21 22:45 11/16/21 22:30 11/16/21 22:30 11/16/21 22:23 11/16/21 22:23 11/16/21 22:15 11/16/21 22:15 11/16/21 22:00 11/16/21 21:45 11/16/21 21:45 11/16/21 21:30 11/16/21 21:15 11/16/21 21:15 11/16/21 21:09 11/16/21 21:09 11/16/21 21:00 11/16/21 21:00 11/16/21 20:54 11/16/21 20:54 11/16/21 20:45 11/16/21 20:45 11/16/21 20:35 11/16/21 20:35 11/16/21 20:30 11/16/21 20:30 11/16/21 20:26 11/16/21 20:26 11/16/21 20:15 11/16/21 20:15 11/16/21 20:00 11/16/21 20:00 11/16/21 17:16 Room Air 11/16/21 19:50 11/16/21 19:45 11/16/21 19:45 11/16/21 19:44 11/16/21 19:44 11/16/21 19:40 11/16/21 19:30 11/16/21 19:30 11/16/21 19:26 11/16/21 19:26 11/16/21 19:10 11/16/21 19:00 11/16/21 18:50 11/16/21 18:40 11/16/21 18:30 11/16/21 18:30 11/16/21 18:20 11/16/21 18:10 11/16/21 18:00 11/16/21 18:00 11/16/21 17:50 11/16/21 17:49 11/16/21 17:14 Room Air Pain Intensity Penis: Pain Intensity: 0 Transfer of Care Handoff Completed per policy Notes Mental Status: alert / awake / arousable and participated in evaluation Patient Amnestic to Procedure: Yes Nausea / Vomiting: adequately controlled Pain: adequately controlled Airway Patency, RR, SpO2: stable & adequate BP & HR: stable & adequate Hydration State: stable & adequate Anesthetic Complications: no major complications apparent and Pt Satisfied with anesthetic care
--- NOTE | 2021-11-17 16:19 | Ultrasound Report ---
US duplex portal hepatic veins CLINICAL HISTORY: Jaundice. Eval portal vein thrombosis COMPARISON STUDY: Abdomen and pelvis CT 11/16/2021. FINDINGS: The liver is echogenic consistent with fatty change. This results in suboptimal evaluation of the portal veins. The visualized main portal vein and left portal vein appear patent. The right po rtal vein is not visualized on this study. The middle and left hepatic veins appear patent. The right hepatic vein is not visualized. There is trace ascites present. IMPRESSION: Hepatic steatosis resulting in suboptimal evaluation portal and hepatic veins. However, no evidence for portal or hepatic vein thrombosis. ACT 112: Negative or not required by law. Electronically signed by: Rasta Graham M.D. 11/17/2021 4:18 PM
--- NOTE | 2021-11-17 16:33 | Gastroenterology Progress Note ---
Date of Service November 17, 2021 Assessment & Plan Admission and Anticipated Discharge Date Admission Date: November 16, 2021 Subjective Please fax records to [phone] Results & Data ([facility]) Vital Signs (Past 12 Hours) Vital Signs Temp Pulse Pulse Resp BP BP Pulse Ox 11/17/21 13:05 36.5 C 95 H 18 120/80 93 11/17/21 12:55 36.5 C 98 H 24 120/80 92 11/17/21 12:45 36.6 C 101 H 24 104/73 91 11/17/21 12:00 103 H 18 91 11/17/21 12:00 120/81 11/17/21 11:45 98 H 19 92 11/17/21 11:45 124/81 11/17/21 11:30 100 H 24 92 11/17/21 11:30 119/83 11/17/21 11:15 96 H 16 91 11/17/21 11:15 126/85 11/17/21 11:00 97 H 18 89 L 11/17/21 11:00 120/89 11/17/21 10:45 104 H 17 94 11/17/21 10:45 123/81 11/17/21 10:30 103 H 23 94 11/17/21 10:30 121/82 11/17/21 10:15 104 H 18 93 11/17/21 10:15 127/97 11/17/21 10:00 108 H 19 93 11/17/21 10:00 117/80 11/17/21 09:45 108 H 18 92 11/17/21 09:45 110/82 11/17/21 09:30 107 H 20 93 11/17/21 09:30 124/84 11/17/21 09:15 108 H 18 93 11/17/21 09:15 109/78 11/17/21 09:00 108 H 21 92 11/17/21 09:00 118/77 11/17/21 08:45 120 H 22 94 11/17/21 08:45 109/85 11/17/21 08:30 105 H 21 94 11/17/21 08:30 116/84 11/17/21 08:15 108 H 22 94 11/17/21 08:15 110/83 11/17/21 08:00 119 H 19 93 11/17/21 08:00 121/76 09/15/22 07:45 112 H 16 92 11/17/21 07:45 117/85 11/17/21 07:30 120 H 17 95 11/17/21 07:30 118/82 11/17/21 07:15 112 H 21 94 11/17/21 07:01 120 H 19 94 11/17/21 07:01 120/88 11/17/21 07:00 112 H 27 H 93 11/17/21 06:45 124 H 20 95 11/17/21 06:30 105 H 18 91 11/17/21 06:30 115/88 11/17/21 06:15 112 H 23 91 11/17/21 06:00 111 H 20 92 11/17/21 06:00 122/81 11/17/21 05:45 126 H 25 H 93 11/17/21 05:30 119 H 22 92 11/17/21 11:24 36.8 C 98 H 20 126/85 91 11/17/21 08:00 11/17/21 08:00 11/17/21 08:00 119 H 11/17/21 05:00 119 H 25 H 93 11/17/21 05:00 110/82 Pulse Ox O2 Del Method O2 Del Method O2 Flow Rate 11/17/21 13:05 Oxymask 4 11/17/21 12:55 Oxymask 4 11/17/21 12:45 Oxymask 4 11/17/21 12:00 11/17/21 12:00 11/17/21 11:45 11/17/21 11:45 11/17/21 11:30 11/17/21 11:30 11/17/21 11:15 11/17/21 11:15 11/17/21 11:00 11/17/21 11:00 11/17/21 10:45 11/17/21 10:45 11/17/21 10:30 11/17/21 10:30 11/17/21 10:15 11/17/21 10:15 11/17/21 10:00 11/17/21 10:00 11/17/21 09:45 11/17/21 09:45 11/17/21 09:30 11/17/21 09:30 11/17/21 09:15 11/17/21 09:15 11/17/21 09:00 11/17/21 09:00 11/17/21 08:45 11/17/21 08:45 11/17/21 08:30 11/17/21 08:30 11/17/21 08:15 11/17/21 08:15 11/17/21 08:00 11/17/21 08:00 11/17/21 07:45 11/17/21 07:45 11/17/21 07:30 11/17/21 07:30 11/17/21 07:15 11/17/21 07:01 11/17/21 07:01 11/17/21 07:00 11/17/21 06:45 11/17/21 06:30 11/17/21 06:30 11/17/21 06:15 11/17/21 06:00 11/17/21 06:00 11/17/21 05:45 11/17/21 05:30 11/17/21 11:24 Room Air 11/17/21 08:00 Room Air 11/17/21 08:00 92 Room Air 11/17/21 08:00 11/17/21 05:00 11/17/21 05:00
--- NOTE | 2021-11-17 21:17 | Electrocardiogram Report ---
Test Reason : Blood Pressure : / mmHG Vent. Rate : 131 BPM Atrial Rate : 131 BPM P-R Int : 104 ms QRS Dur : 104 ms QT Int : 342 ms P-R-T Axes : 000 000 -76 degrees QTc Int : 505 ms Possible Atrial flutter with 2 to [address] and T wave abnormality Abnormal ECG When compared with ECG of 15-FEB-2021 08:36, Vent. rate has increased BY 49 BPM Nonspecific T wave abnormality, worse in Inferior leads Nonspecific T wave abnormality now evident in Lateral leads Confirmed by Charles Barbosa ([id number]) on 11/17/2021 9:17:03 PM Referred By: REFERRED SELF Confirmed By:Charles Barbosa
[2021-11-17] MEDS ORDERED: LIDOCAINE 1%/EPINEPHRINE 1:100,000 50 ML VIAL INFIL ONE (23:34)
--- NOTE | 2021-11-17 23:45 | Communication Note ---
Date of Service: November 17, 2021 0040: Approached by nursing staff as the patient had a significant mount of bleeding around the RIGHT IJ site. I did assess the patient immediately at bedside. Patient had saturated his dressing and had clotted blood down the back of his neck and across his chest. Sterilely, I did take down the dressing. There was oozing with a small area of what appeared to be arterial like bleeding from around the site that had been sutured earlier today. Order placed for lidocaine with epinephrine. The area was cleansed with chlorhexidine and the surrounding area was injected with lidocaine with epinephrine. The surrounding area was cleansed with sterile saline and the area was watched with only mild oozing from the site. Surgicel was applied directly to the wound and folded 4 x 4 was then put in place with Tegaderm dressing. Stat H&H and INR were obtained. We will continue to monitor for return of bleeding. Otherwise, patient has been hemodynamically stable and is communicating well with staff throughout this whole event. I have personally spent 35 minutes of critical care time in the direct management of this patient. This is a life/limb threatening event. This includes time spent evaluating patient, direct bedside care, chart review, placing orders, interpretation of diagnostic studies, discussion with consultants, patient, and family members, as well as other required patient management activities. This time is exclusive of all separately billable procedures, and teaching time and separate from and in addition to any other critical care service time. Coding Level of Care Code Critical Care gary cochran'l 30 min Time Spent (min) 35
[2021-11-18 00:13] LABS: Hematocrit (blood only) 25.2 % (40.1-51.0); Hemoglobin 8.8 g/dl (14.0-18.0)
[2021-11-18] MEDS: ALBUMIN 25% 100 mL 25 GM/100 ML VIAL IV SCH ×4 (00:21→17:52)
[2021-11-18] MEDS: THIAMINE HCL 500 MG in SODIUM CHLORIDE 0.9% 50 ML IV SCH ×3 (00:21→16:20)
[2021-11-18 00:24] LABS: INR 1.8 (0.9-1.1); Prothrombin Time 18.2 Seconds (9.0-12.0)
--- NOTE | 2021-11-18 05:37 | Electrocardiogram Report ---
Test Reason : Blood Pressure : / mmHG Vent. Rate : 114 BPM Atrial Rate : 110 BPM P-R Int : 000 ms QRS Dur : 110 ms QT Int : 358 ms P-R-T Axes : 000 001 -40 degrees QTc Int : 493 ms Atrial fibrillation with rapid ventricular response Possible Inferior infarct , age undetermined Prolonged QT Abnormal ECG When compared with ECG of 16-NOV-2021 17:27, Atrial fibrillation is now Present Nonspecific T wave abnormality, improved in Lateral leads Confirmed by Charles Barbosa ([id number]) on 11/18/2021 5:37:16 AM Referred By: REFERRED SELF Confirmed By:Charles Barbosa
[2021-11-18] MEDS: INSULIN ASPART PER UNIT SC SCH ×4 (05:47→20:50)
[2021-11-18 06:32] LABS: Hematocrit (blood only) 24.2 % (40.1-51.0); Hemoglobin 8.4 g/dl (14.0-18.0); Mean Corpuscular Hemoglobin 35.1 pg (25.0-34.0); Mean Corpuscular Hgb Conc 34.7 g/dL (32.0-36.0); Mean Corpuscular Volume 101.3 fL (80.0-100.0); Mean Platelet Volume 11.4 fL (9.4-12.4); Nucleated RBC # (auto) 0.16 K/uL (0-0); Nucleated RBC % (auto) 1.4 %; Platelet Count 100 K/uL (130-400); RDW Coefficient of Variation 15.8 % (11.5-14.5); RDW Standard Deviation 57.5 fL (36.4-46.3); Red Blood Count 2.39 M/uL (4.63-6.08); White Blood Count 11.28 K/ul (4.8-10.8)
[2021-11-18] MEDS: OCTREOTIDE ACETATE 500 MCG in DEXTROSE 5% 100 ML IV SCH ×2 (06:34→16:20)
[2021-11-18 06:47] LABS: Basophils # (auto) 0.02 K/uL (0-0.2); Basophils % (auto) 0.2 %; Eosinophils # (auto) 0.02 K/uL (0-0.50); Eosinophils % (auto) 0.2 %; Immature Granulocytes # (auto) 0.25 K/uL (0.00-0.02); Immature Granulocytes % (auto) 2.2 %; Lymphocytes # (auto) 0.59 K/uL (1.2-3.4); Lymphocytes % (auto) 5.2 %; Monocytes # (auto) 1.11 K/uL (0.24-0.82); Monocytes % (auto) 9.8 %; Neutrophils # (auto) 9.29 K/uL (1.4-6.5); Neutrophils % (auto) 82.4 %
[2021-11-18 07:01] LABS: Alanine Aminotransferase 69 U/L (7-52); Albumin Level 3.2 gm/dl (3.4-5.0); Anion Gap 14 (3-11); Aspartate Aminotransferase 96 U/L (13-39); Bilirubin,Total 37.3 mg/dl (0.2-1.0); Calcium 7.9 mg/dl (8.5-10.1); Carbon Dioxide 23 mmol/L (21-32); Chloride 91 mmol/L (98-107); Glucose 154 mg/dl (70-99(Fasting)); Phosphorus 3.2 mg/dl (2.5-4.9); Potassium 3.3 mmol/L (3.5-5.1); Sodium 128 mmol/L (136-145); Total Protein 5.1 gm/dl (6.0-8.3)
[2021-11-18 07:02] LABS: Blood Urea Nitrogen 47 mg/dl (6-23)
--- NOTE | 2021-11-18 08:15 | Hospitalist Progress Note ---
Date of Service November 18, 2021 Assessment & Plan (1) Acute alcoholic hepatitis: (2) Alcohol abuse: (3) Hypotension: (4) Jaundice due to hepatitis: Plan: A 51-year-old male with alcohol abuse presents with jaundice and also hypotension and tachycardia. 1. Possible sepsis with hypotension, tachycardia. Started Levophed drip on admission, currently off pressors Cefepime on admission -> now on ceftriaxone (possible SBP) Follow the cultures.Procalcitonin 1.79, he will be monitor in the ICU. 2. Possible alcoholic hepatitis. Total bilirubin 33.8, direct bilirubin 20.7, AST 156, ALT 89. Recently was taking Tylenol for his back pain. ICU started him on steroids and also N acetylcysteine. We will follow the repeat labs. GI consulted - cont. 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 The Z line was irregular. There was mild portal gastropathy in the fundus and body. There was a small amount of bilious fluid in the stomach. The antrum was normal. The duodenum was normal. There was contact oozing. Per GI: We are also consulted for alc hep. His Na is 127, Bili 39 --> 33, INR 1.8--> 2, creat 3.0 His DF is 76, MELD is 37. Blood and urine cx pending. He has been receiving NAC and solumederol for alc hep; He is on albumin, octreotide, and now midodrine with borderline uop. RECS: Diet as tolerated, follow hgb. Once daily oral PPI. Cont NAC protocol, prednisone for alc hep. Lille score at day 4. US with doppler obtained IMPRESSION: Hepatic steatosis resulting in suboptimal evaluation portal and hepatic veins. However, no evidence for portal or hepatic vein thrombosis. consider MRCP Елена, follow uop. Cont midodrine to support MAP, octreotide, and albumin infusions. Nephrology consulted and following. Echo obtained Mild concentric LVH. LV wall motion is normal. LVEF 55 to 60%. RV is normal in size and function. Mild tricuspid regurg. Interatrial septum is intact with no evidence for an atrial septal defect. There is no evidence of [id number] shunt as documented with the injected agitated saline contrast. Prognosis guarded. He has been denied for transfer [place] [facility] [place]. Echavarria (GI) spoke to Dr. Cunningham at [facility] for possible transfer (on 11/17) - Phone number for transfer center [phone]. They are awaiting records, to [facility] for possibility of transfer -- primary service to follow up. 11/18 - Requested records, CD with images and echo to be sent to [facility]. Contacted [facility] this afternoon, however did not hear back. We will be reaching out to them again. 3. Alcoholism. Ativan protocol and IV thiamine. Received banana bag. Further care per ICU. 4. Possible GI bleed. The patient on Protonix. Received IV vitamin K, as INR is 1.8. GI consulted. Underwent EGD as above. 5. Hyponatremia, sodium 126. Probably from his alcoholism. Getting fluids. Nephrology consulted. 6. Acute kidney injury. Possible hepatorenal syndrome with creatinine 3, getting fluids. Follow repeat labs. Nephrology consulted. 7. History of atrial fibrillation s/p MAZE. On admission hypotensive, on Levophed drip. He is taking only Coreg, not taking any blood thinner currently. Developed Afib w/ RVR. Care per ICU team. DVT prophylaxis: Sequential compression devices for now. DISPOSITION: Closely monitor in the ICU. FULL CODE Admission and Anticipated Discharge Date Admission Date: November 16, 2021 Subjective Patient seen in follow-up of jaundice, weakness, treated for alcohol hepatitis On admission found to have bilirubin of 39/33, creatinine of 3 Patient was admitted to ICU Initially tried to transfer patient to [facility] [place] however due to ongoing alcohol use, patient not a candidate for transplant Given hypotension, patient required pressors, currently off pressors Had some bleeding from his right IJ site - seems fixed overnight He is more drowsy today, however able to answer simple questions appropriately Family at the bedside yesterday but not today He underwent EGD yesterday with GI service Per GI - tried to transfer to [facility] Obtained records/CD with images and echo, and requested these to be sent to [facility]. MELD score elevated 39 Patient denies any chest pain, has some minimal abdominal discomfort. Denies fevers chills. Review of Systems Review of Systems: All systems reviewed & are unremarkable except as noted in Subjective Physical Exam Physical Exam: GENERAL: The patient is more drowsy today, however able to answer simple questions appropriately HEENT: +scleral icterus present. Pupils equal, round and reactive to light. Oral mucosa moist. NECK: R IJ placed (bleeding at the site seems resolved) CARDIOVASCULAR: + tachycardic RESPIRATORY : Normal AP diameter. No accessory muscle use. CTAB ABDOMEN: Somewhat tense. Mild discomfort on palpation. Bowel sounds present. NEURO: Alert and oriented x3. No facial droop. Speech is clear. Obeys commands. Moves extremities. EXTREMITIES: Mild pedal edema present. SKIN: jaundiced Results & Data Results & Data ([facility]) Vital Signs (Past 12 Hours) Vital Signs Temp Pulse Resp BP Pulse Ox O2 Del Method O2 Flow Rate 11/18/21 06:00 104 H 24 111/68 91 Room Air 11/18/21 05:00 102 H 18 109/72 91 Nasal Cannula 2 11/18/21 04:00 36.7 C 99 H 16 105/74 92 Nasal Cannula 2 11/18/21 03:00 101 H 20 114/73 93 Nasal Cannula 2 11/18/21 02:00 103 H 18 114/75 92 Nasal Cannula 2 11/18/21 01:00 103 H 17 109/72 93 Nasal Cannula 2 11/18/21 00:00 36.5 C 105 H 24 110/77 93 Nasal Cannula 2 11/17/21 23:00 98 H 21 107/75 93 Nasal Cannula 2 11/17/21 22:00 101 H 16 102/64 92 Nasal Cannula 2 11/17/21 21:00 101 H 23 109/76 94 Nasal Cannula 2 Laboratory Results 11/18/21 11/18/21 11/18/21 Range/Units 07:37 05:35 05:34 WBC (4.8-10.8) K/ul RBC (4.63-6.08) M/uL Hgb (14.0-18.0) g/dl Hct (40.1-51.0) % MCV (80.0-100.0) fL MCH (25.0-34.0) pg MCHC (32.0-36.0) g/dL RDW Std Deviation (36.4-46.3) fL RDW Coeff of Yonatan (11.5-14.5) % Plt Count (130-400) K/uL MPV (9.4-12.4) fL Immature Gran % (Auto) % Neut % (Auto) % Lymph % (Auto) % [place] % (Auto) % Eos % (Auto) % Baso % (Auto) % Neut # (Auto) (1.4-6.5) K/uL Lymph # (Auto) (1.2-3.4) K/uL [place] # (Auto) (0.24-0.82) K/uL Eos # (Auto) (0-0.50) K/uL Baso # (Auto) (0-0.2) K/uL Immature Gran # (Auto) (0.00-0.02) K/uL Absolute Nucleated RBC (0-0) K/uL Nucleated RBC % (auto) % Toxic Vacuolation Polychromasia PT (9.0-12.0) Seconds INR (0.9-1.1) Fibrinogen (184-400) mg/dl Sodium (136-145) mmol/L Potassium (3.5-5.1) mmol/L Chloride (98-107) mmol/L Carbon Dioxide (21-32) mmol/L Anion Gap (3-11) BUN (6-23) mg/dl Creatinine POC Creatinine 3.1 H (0.6-1.3) mg/dl Est Cr Clr Drug Dosing Est GFR ( Amer) Est GFR (Non-Af Amer) BUN/Creatinine Ratio Glucose (70-99(Fasting)) mg/dl POC Glucose 175 H 166 H (70-99) mg/dl Calcium (8.5-10.1) mg/dl Phosphorus (2.5-4.9) mg/dl Magnesium (1.7-2.4) mg/dl Ferritin (8-388) ng/ml Total Bilirubin (0.2-1.0) mg/dl Direct Bilirubin (0-0.2) mg/dl AST (13-39) U/L ALT (7-52) U/L Alkaline Phosphatase Total Protein (6.0-8.3) gm/dl Albumin (3.4-5.0) gm/dl Ur Random Sodium mmol/L Miscellaneous Test Miscellaneous Test 2 Ref Lab Test Result Blood Type Antibody Screen 11/18/21 11/18/21 11/18/21 Range/Units 05:29 05:25 05:25 WBC 11.28 H (4.8-10.8) K/ul RBC 2.39 L (4.63-6.08) M/uL Hgb 8.4 L (14.0-18.0) g/dl Hct 24.2 L (40.1-51.0) % MCV 101.3 H (80.0-100.0) fL MCH 35.1 H (25.0-34.0) pg MCHC 34.7 (32.0-36.0) g/dL RDW Std Deviation 57.5 H (36.4-46.3) fL RDW Coeff of Yonatan 15.8 H (11.5-14.5) % Plt Count 100 L (130-400) K/uL MPV 11.4 (9.4-12.4) fL Immature Gran % (Auto) 2.2 % Neut % (Auto) 82.4 % Lymph % (Auto) 5.2 % [place] % (Auto) 9.8 % Eos % (Auto) 0.2 % Baso % (Auto) 0.2 % Neut # (Auto) 9.29 H (1.4-6.5) K/uL Lymph # (Auto) 0.59 L (1.2-3.4) K/uL [place] # (Auto) 1.11 H (0.24-0.82) K/uL Eos # (Auto) 0.02 (0-0.50) K/uL Baso # (Auto) 0.02 (0-0.2) K/uL Immature Gran # (Auto) 0.25 H (0.00-0.02) K/uL Absolute Nucleated RBC 0.16 H (0-0) K/uL Nucleated RBC % (auto) 1.4 % Toxic Vacuolation Polychromasia PT (9.0-12.0) Seconds INR (0.9-1.1) Fibrinogen (184-400) mg/dl Sodium 128 L (136-145) mmol/L Potassium 3.3 L (3.5-5.1) mmol/L Chloride 91 L (98-107) mmol/L Carbon Dioxide 23 (21-32) mmol/L Anion Gap 14 H (3-11) BUN 47 H (6-23) mg/dl Creatinine TNP POC Creatinine (0.6-1.3) mg/dl Est Cr Clr Drug Dosing Not Reportable Est GFR ( Amer) Not Reportable Est GFR (Non-Af Amer) Not Reportable BUN/Creatinine Ratio TNP Glucose 154 H (70-99(Fasting)) mg/dl POC Glucose (70-99) mg/dl Calcium 7.9 L (8.5-10.1) mg/dl Phosphorus 3.2 (2.5-4.9) mg/dl Magnesium TNP (1.7-2.4) mg/dl Ferritin (8-388) ng/ml Total Bilirubin 37.3 H (0.2-1.0) mg/dl Direct Bilirubin Pending (0-0.2) mg/dl AST 96 H (13-39) U/L ALT 69 H (7-52) U/L Alkaline Phosphatase TNP Total Protein 5.1 L (6.0-8.3) gm/dl Albumin 3.2 L (3.4-5.0) gm/dl Ur Random Sodium mmol/L Miscellaneous Test Miscellaneous Test 2 Ref Lab Test Result Pending Blood Type Antibody Screen 11/18/21 11/18/21 11/17/21 Range/Units 00:04 00:04 21:10 WBC (4.8-10.8) K/ul RBC (4.63-6.08) M/uL Hgb 8.8 L (14.0-18.0) g/dl Hct 25.2 L (40.1-51.0) % MCV (80.0-100.0) fL MCH (25.0-34.0) pg MCHC (32.0-36.0) g/dL RDW Std Deviation (36.4-46.3) fL RDW Coeff of Yonatan (11.5-14.5) % Plt Count (130-400) K/uL MPV (9.4-12.4) fL Immature Gran % (Auto) % Neut % (Auto) % Lymph % (Auto) % [place] % (Auto) % Eos % (Auto) % Baso % (Auto) % Neut # (Auto) (1.4-6.5) K/uL Lymph # (Auto) (1.2-3.4) K/uL [place] # (Auto) (0.24-0.82) K/uL Eos # (Auto) (0-0.50) K/uL Baso # (Auto) (0-0.2) K/uL Immature Gran # (Auto) (0.00-0.02) K/uL Absolute Nucleated RBC (0-0) K/uL Nucleated RBC % (auto) % Toxic Vacuolation Polychromasia PT 18.2 H (9.0-12.0) Seconds INR 1.8 H (0.9-1.1) Fibrinogen (184-400) mg/dl Sodium (136-145) mmol/L Potassium (3.5-5.1) mmol/L Chloride (98-107) mmol/L Carbon Dioxide (21-32) mmol/L Anion Gap (3-11) BUN (6-23) mg/dl Creatinine POC Creatinine (0.6-1.3) mg/dl Est Cr Clr Drug Dosing Est GFR ( Amer) Est GFR (Non-Af Amer) BUN/Creatinine Ratio Glucose (70-99(Fasting)) mg/dl POC Glucose (70-99) mg/dl Calcium (8.5-10.1) mg/dl Phosphorus (2.5-4.9) mg/dl Magnesium (1.7-2.4) mg/dl Ferritin (8-388) ng/ml Total Bilirubin (0.2-1.0) mg/dl Direct Bilirubin (0-0.2) mg/dl AST (13-39) U/L ALT (7-52) U/L Alkaline Phosphatase Total Protein (6.0-8.3) gm/dl Albumin (3.4-5.0) gm/dl Ur Random Sodium 43 mmol/L Miscellaneous Test Miscellaneous Test 2 Ref Lab Test Result Blood Type Antibody Screen 11/17/21 11/17/21 11/17/21 Range/Units 21:03 15:40 13:16 WBC (4.8-10.8) K/ul RBC (4.63-6.08) M/uL Hgb (14.0-18.0) g/dl Hct (40.1-51.0) % MCV (80.0-100.0) fL MCH (25.0-34.0) pg MCHC (32.0-36.0) g/dL RDW Std Deviation (36.4-46.3) fL RDW Coeff of Yonatan (11.5-14.5) % Plt Count (130-400) K/uL MPV (9.4-12.4) fL Immature Gran % (Auto) % Neut % (Auto) % Lymph % (Auto) % [place] % (Auto) % Eos % (Auto) % Baso % (Auto) % Neut # (Auto) (1.4-6.5) K/uL Lymph # (Auto) (1.2-3.4) K/uL [place] # (Auto) (0.24-0.82) K/uL Eos # (Auto) (0-0.50) K/uL Baso # (Auto) (0-0.2) K/uL Immature Gran # (Auto) (0.00-0.02) K/uL Absolute Nucleated RBC (0-0) K/uL Nucleated RBC % (auto) % Toxic Vacuolation Polychromasia PT (9.0-12.0) Seconds INR (0.9-1.1) Fibrinogen (184-400) mg/dl Sodium (136-145) mmol/L Potassium (3.5-5.1) mmol/L Chloride (98-107) mmol/L Carbon Dioxide (21-32) mmol/L Anion Gap (3-11) BUN (6-23) mg/dl Creatinine POC Creatinine 2.4 H (0.6-1.3) mg/dl Est Cr Clr Drug Dosing Est GFR ( Amer) Est GFR (Non-Af Amer) BUN/Creatinine Ratio Glucose (70-99(Fasting)) mg/dl POC Glucose 217 H 195 H (70-99) mg/dl Calcium (8.5-10.1) mg/dl Phosphorus (2.5-4.9) mg/dl Magnesium (1.7-2.4) mg/dl Ferritin (8-388) ng/ml Total Bilirubin (0.2-1.0) mg/dl Direct Bilirubin (0-0.2) mg/dl AST (13-39) U/L ALT (7-52) U/L Alkaline Phosphatase Total Protein (6.0-8.3) gm/dl Albumin (3.4-5.0) gm/dl Ur Random Sodium mmol/L Miscellaneous Test Miscellaneous Test 2 Ref Lab Test Result Blood Type Antibody Screen 09/15/22 09/15/22 09/15/22 Range/Units 13:16 13:16 11:48 WBC 9.62 (4.8-10.8) K/ul RBC 2.79 L (4.63-6.08) M/uL Hgb 9.7 L (14.0-18.0) g/dl Hct 28.6 L (40.1-51.0) % MCV 102.5 H (80.0-100.0) fL MCH 34.8 H (25.0-34.0) pg MCHC 33.9 (32.0-36.0) g/dL RDW Std Deviation 58.6 H (36.4-46.3) fL RDW Coeff of Yonatan 15.9 H (11.5-14.5) % Plt Count 105 L (130-400) K/uL MPV 11.6 (9.4-12.4) fL Immature Gran % (Auto) 2.2 % Neut % (Auto) 83.6 % Lymph % (Auto) 6.9 % [place] % (Auto) 6.7 % Eos % (Auto) 0.4 % Baso % (Auto) 0.2 % Neut # (Auto) 8.05 H (1.4-6.5) K/uL Lymph # (Auto) 0.66 L (1.2-3.4) K/uL [place] # (Auto) 0.64 (0.24-0.82) K/uL Eos # (Auto) 0.04 (0-0.50) K/uL Baso # (Auto) 0.02 (0-0.2) K/uL Immature Gran # (Auto) 0.21 H (0.00-0.02) K/uL Absolute Nucleated RBC 0.09 H (0-0) K/uL Nucleated RBC % (auto) 0.9 % Toxic Vacuolation Polychromasia PT (9.0-12.0) Seconds INR (0.9-1.1) Fibrinogen (184-400) mg/dl Sodium 127 L (136-145) mmol/L Potassium 3.7 (3.5-5.1) mmol/L Chloride 91 L (98-107) mmol/L Carbon Dioxide 21 (21-32) mmol/L Anion Gap 15 H (3-11) BUN 37 H (6-23) mg/dl Creatinine TNP POC Creatinine (0.6-1.3) mg/dl Est Cr Clr Drug Dosing Not Reportable Est GFR ( Amer) Not Reportable Est GFR (Non-Af Amer) Not Reportable BUN/Creatinine Ratio TNP Glucose 147 H (70-99(Fasting)) mg/dl POC Glucose 157 H (70-99) mg/dl Calcium 8.0 L (8.5-10.1) mg/dl Phosphorus 2.8 D (2.5-4.9) mg/dl Magnesium 2.1 (1.7-2.4) mg/dl Ferritin (8-388) ng/ml Total Bilirubin (0.2-1.0) mg/dl Direct Bilirubin (0-0.2) mg/dl AST (13-39) U/L ALT (7-52) U/L Alkaline Phosphatase Total Protein (6.0-8.3) gm/dl Albumin (3.4-5.0) gm/dl Ur Random Sodium mmol/L Miscellaneous Test Miscellaneous Test 2 Ref Lab Test Result Blood Type Antibody Screen 11/17/21 11/17/21 11/17/21 Range/Units 11:47 09:46 07:47 WBC 9.38 (4.8-10.8) K/ul RBC 2.92 L (4.63-6.08) M/uL Hgb 10.4 L (14.0-18.0) g/dl Hct 29.2 L (40.1-51.0) % MCV 100.0 (80.0-100.0) fL MCH 35.6 H (25.0-34.0) pg MCHC 35.6 (32.0-36.0) g/dL RDW Std Deviation 56.9 H (36.4-46.3) fL RDW Coeff of Yonatan 15.9 H (11.5-14.5) % Plt Count 105 L (130-400) K/uL MPV 11.9 (9.4-12.4) fL Immature Gran % (Auto) 2.5 % Neut % (Auto) 82.3 % Lymph % (Auto) 6.4 % [place] % (Auto) 7.8 % Eos % (Auto) 0.5 % Baso % (Auto) 0.5 % Neut # (Auto) 7.72 H (1.4-6.5) K/uL Lymph # (Auto) 0.60 L (1.2-3.4) K/uL [place] # (Auto) 0.73 (0.24-0.82) K/uL Eos # (Auto) 0.05 (0-0.50) K/uL Baso # (Auto) 0.05 (0-0.2) K/uL Immature Gran # (Auto) 0.23 H (0.00-0.02) K/uL Absolute Nucleated RBC 0.09 H (0-0) K/uL Nucleated RBC % (auto) 1.0 % Toxic Vacuolation 1+ Polychromasia 1+ PT (9.0-12.0) Seconds INR (0.9-1.1) Fibrinogen 288 (184-400) mg/dl Sodium (136-145) mmol/L Potassium (3.5-5.1) mmol/L Chloride (98-107) mmol/L Carbon Dioxide (21-32) mmol/L Anion Gap (3-11) BUN (6-23) mg/dl Creatinine POC Creatinine (0.6-1.3) mg/dl Est Cr Clr Drug Dosing Est GFR ( Amer) Est GFR (Non-Af Amer) BUN/Creatinine Ratio Glucose (70-99(Fasting)) mg/dl POC Glucose (70-99) mg/dl Calcium (8.5-10.1) mg/dl Phosphorus (2.5-4.9) mg/dl Magnesium (1.7-2.4) mg/dl Ferritin (8-388) ng/ml Total Bilirubin (0.2-1.0) mg/dl Direct Bilirubin (0-0.2) mg/dl AST (13-39) U/L ALT (7-52) U/L Alkaline Phosphatase Total Protein (6.0-8.3) gm/dl Albumin (3.4-5.0) gm/dl Ur Random Sodium mmol/L Miscellaneous Test Miscellaneous Test 2 Ref Lab Test Result Blood Type O Positive Antibody Screen NEGATIVE 11/17/21 11/17/21 11/17/21 Range/Units 07:47 05:37 05:37 WBC (4.8-10.8) K/ul RBC (4.63-6.08) M/uL Hgb (14.0-18.0) g/dl Hct (40.1-51.0) % MCV (80.0-100.0) fL MCH (25.0-34.0) pg MCHC (32.0-36.0) g/dL RDW Std Deviation (36.4-46.3) fL RDW Coeff of Yonatan (11.5-14.5) % Plt Count (130-400) K/uL MPV (9.4-12.4) fL Immature Gran % (Auto) % Neut % (Auto) % Lymph % (Auto) % [place] % (Auto) % Eos % (Auto) % Baso % (Auto) % Neut # (Auto) (1.4-6.5) K/uL Lymph # (Auto) (1.2-3.4) K/uL [place] # (Auto) (0.24-0.82) K/uL Eos # (Auto) (0-0.50) K/uL Baso # (Auto) (0-0.2) K/uL Immature Gran # (Auto) (0.00-0.02) K/uL Absolute Nucleated RBC (0-0) K/uL Nucleated RBC % (auto) % Toxic Vacuolation Polychromasia PT 21.0 H (9.0-12.0) Seconds INR 2.0 H (0.9-1.1) Fibrinogen (184-400) mg/dl Sodium (136-145) mmol/L Potassium (3.5-5.1) mmol/L Chloride (98-107) mmol/L Carbon Dioxide (21-32) mmol/L Anion Gap (3-11) BUN (6-23) mg/dl Creatinine POC Creatinine 2.5 H (0.6-1.3) mg/dl Est Cr Clr Drug Dosing Est GFR ( Amer) Est GFR (Non-Af Amer) BUN/Creatinine Ratio Glucose (70-99(Fasting)) mg/dl POC Glucose (70-99) mg/dl Calcium (8.5-10.1) mg/dl Phosphorus (2.5-4.9) mg/dl Magnesium (1.7-2.4) mg/dl Ferritin 1833.0 H (8-388) ng/ml Total Bilirubin (0.2-1.0) mg/dl Direct Bilirubin 20.8 H (0-0.2) mg/dl AST (13-39) U/L ALT (7-52) U/L Alkaline Phosphatase Total Protein (6.0-8.3) gm/dl Albumin (3.4-5.0) gm/dl Ur Random Sodium mmol/L Miscellaneous Test Miscellaneous Test 2 Ref Lab Test Result Blood Type Antibody Screen 11/16/21 Range/Units 18:55 WBC (4.8-10.8) K/ul RBC (4.63-6.08) M/uL Hgb (14.0-18.0) g/dl Hct (40.1-51.0) % MCV (80.0-100.0) fL MCH (25.0-34.0) pg MCHC (32.0-36.0) g/dL RDW Std Deviation (36.4-46.3) fL RDW Coeff of Yonatan (11.5-14.5) % Plt Count (130-400) K/uL MPV (9.4-12.4) fL Immature Gran % (Auto) % Neut % (Auto) % Lymph % (Auto) % [place] % (Auto) % Eos % (Auto) % Baso % (Auto) % Neut # (Auto) (1.4-6.5) K/uL Lymph # (Auto) (1.2-3.4) K/uL [place] # (Auto) (0.24-0.82) K/uL Eos # (Auto) (0-0.50) K/uL Baso # (Auto) (0-0.2) K/uL Immature Gran # (Auto) (0.00-0.02) K/uL Absolute Nucleated RBC (0-0) K/uL Nucleated RBC % (auto) % Toxic Vacuolation Polychromasia PT (9.0-12.0) Seconds INR (0.9-1.1) Fibrinogen (184-400) mg/dl Sodium (136-145) mmol/L Potassium (3.5-5.1) mmol/L Chloride (98-107) mmol/L Carbon Dioxide (21-32) mmol/L Anion Gap (3-11) BUN (6-23) mg/dl Creatinine POC Creatinine (0.6-1.3) mg/dl Est Cr Clr Drug Dosing Est GFR ( Amer) Est GFR (Non-Af Amer) BUN/Creatinine Ratio Glucose (70-99(Fasting)) mg/dl POC Glucose (70-99) mg/dl Calcium (8.5-10.1) mg/dl Phosphorus (2.5-4.9) mg/dl Magnesium (1.7-2.4) mg/dl Ferritin (8-388) ng/ml Total Bilirubin (0.2-1.0) mg/dl Direct Bilirubin (0-0.2) mg/dl AST (13-39) U/L ALT (7-52) U/L Alkaline Phosphatase Total Protein (6.0-8.3) gm/dl Albumin (3.4-5.0) gm/dl Ur Random Sodium mmol/L Miscellaneous Test REPORT Miscellaneous Test 2 REPORT Ref Lab Test Result Blood Type Antibody Screen Medications Administered Current Inpatient Medications Dextrose (Dextrose 50% 50 Ml Syringe) 25 - 50 ml IV UD PRN; Protocol PRN Reason: Hypoglycemia Protocol Stop: 12/17/21 12:44 Glucagon (Glucagon For Inj 1 Mg Vial) 1 mg IM UD PRN; Protocol PRN Reason: Hypoglycemia Protocol Stop: 12/17/21 12:44 Glucose (Glucose 40% Gel 15 Gm Tube) 15 - 30 gm PO UD PRN; Protocol PRN Reason: Hypoglycemia Protocol Stop: 12/17/21 12:44 Glucose (Glucose 10 Tab/Tube) 4 - 8 tab PO UD PRN; Protocol PRN Reason: Hypoglycemia Protocol Stop: 12/17/21 12:44 Norepinephrine Bitartrate (Levophed/D5w) 4 mg in 250 mls @ 19.688 mls/hr IV .[id number]; Protocol Stop: 12/16/21 21:59 Last Admin: 11/17/21 11:43 Dose: Not Given Ceftriaxone Sodium 2,000 mg/ (Dextrose) 70 mls @ 100 mls/hr IV Q24H MAYRA; Protocol Stop: 11/19/21 08:59 Last Infusion: 11/17/21 11:44 Dose: Infused Folic Acid 1 mg/ Syringe 10 mls @ 5 mls/min IV QAM MAYRA Stop: 12/17/21 08:59 Last Admin: 11/17/21 08:48 Dose: 5 mls/min Lorazepam 1 mg/ Syringe 1 mls @ 2 mls/min IV UD PRN; Protocol PRN Reason: EtOH Withdrawal AWSS Score 6,7 Stop: 12/17/21 00:21 Lorazepam 2 mg/ Syringe 2 mls @ 2 mls/min IV UD PRN; Protocol PRN Reason: EtOH Withdrawal AWSS Score 8,9 Stop: 12/17/21 00:21 Lorazepam 3 mg/ Syringe 3 mls @ 2 mls/min IV ONCE PRN; Protocol PRN Reason: EtOH Withdrawal AWSS Score 10 & above Thiamine HCl 500 mg/ Sodium (Chloride) 55 mls @ 220 mls/hr IV Q8H [facility] Stop: 11/20/21 00:29 Last Infusion: 11/18/21 00:40 Dose: Infused Thiamine HCl 200 mg/ Sodium (Chloride) 52 mls @ 208 mls/hr IV Q8H [facility] Stop: 11/22/21 00:29 Thiamine HCl 100 mg/ Syringe 10 mls @ 2 mls/min IV QAM [facility] Stop: 12/22/21 08:59 Octreotide Acetate 500 mcg/ (Dextrose) 100.5 mls @ 10.05 mls/hr IV .Q10H [facility] Stop: 12/17/21 10:14 Last Admin: 11/18/21 06:34 Dose: 50 mcg/hr, 10.1 mls/hr Albumin Human (Albumin 25% 100 Ml) 25 gm in 100 mls @ 50 mls/hr IV Q6H [facility] Stop: 11/20/21 13:00 Last Admin: 11/18/21 06:34 Dose: 50 mls/hr Insulin Aspart (Insulin Aspart Per Unit) 0 units SC Q6 [facility] Stop: 12/17/21 11:59 Last Admin: 11/18/21 05:47 Dose: Not Given Miscellaneous (Icu Protocol For Hyperglycemia) 1 each N/A PRN PRN; Protocol PRN Reason: Hyperglycemia Protocol Stop: 11/18/21 23:38 Miscellaneous (Carbohydrates For Hypoglycemia ) 15 - 30 gm PO UD PRN PRN Reason: Hypoglycemia Treatment Stop: 12/17/21 12:44 Pantoprazole Sodium (Pantoprazole 40 Mg Tab) 40 mg PO QAM [facility] Stop: 12/18/21 08:59 Prednisone (Prednisone 20 Mg Tab) 40 mg PO DAILY [facility] Stop: 12/18/21 08:59
[2021-11-18] MEDS: NOREPINEPHRINE/D5W 4 MG/250 ML PLCT IV SCH (08:18)
[2021-11-18] MEDS ORDERED: Nursing to Pharmacy Communication SCH (08:30)
[2021-11-18] MEDS ORDERED: predniSONE 20 MG TAB PO SCH (09:00)
--- NOTE | 2021-11-18 09:10 | Critical Care Progress Note ---
Date of Service November 18, 2021 Assessment & Plan (1) Acute alcoholic hepatitis: Plan: Reason Critically Ill: 51-year-old male presents to the ICU with acute alcoholic hepatitis and bilirubin of 33 with significant jaundice. Currently hypotensive with presumed hepatorenal syndrome on vasopressors. Neuro - [facility] ICU: Negative ASHLEY Sno symptoms of withdrawal at this time. Patient states that he has had symptoms of withdrawal in the past but has been weaning off alcohol over the past 2 weeks and only drinking beer since he began to become jaundiced. -Continue with ASHLEY S scale, Ativan as needed -Continue high-dose thiamine, folic acid, multivitamin Cardiac - Hypotensionlikely hypovolemic with a possible component of sepsis given UTI. -Continue with Levophed, for maps greater than 65 -Continue with albumin and IV fluid resuscitation -See ID for treatment of sepsis -Patient does have history of atrial fibrillation but is status post maze procedure as of 1 year ago. Not on anticoagulation Respiratory - Lungs clear to auscultation currently maintaining oxygen saturation on room air. No history of pulmonary disease. Chest x-ray without active disease. Monitor on continuous pulse ox for now GI - -EGD performed with grade 1 varices seen. Portal gastropathy. No obvious signs of bleeding. Continue Protonix and octreotide per GI notes. GI is reaching out to [facility] for possible consideration of transfer to a transplant center. Acute alcoholic hepatitiscontinue prednisone and NAC protocol per GI. INR 1.8. Platelet count 105,000. Patient is severely jaundiced. RENAL/LYTES - AKIlikely from presumed hepatorenal syndrome but cannot rule out ATN secondary to hypotension/sepsis -Continue albumin. Appreciate nephrology consultation. Creatinine worsening today. Urine output remains adequate. -Replace electrolytes - Foleystrict I's and O's ENDO - No history of diabetes or thyroid disease, ICU hyperglycemic protocol HEME - Patient with worsening anemia likely due to hemodilution. Mild coagulopathy related to liver failure. ID - Possible UTI. Continue antibiotics. LINES/IV ACCESS - Right IJ CVC DVT PROPHYLAXIS - SCDs, hold anticoagulation for elevated INR Okay to downgrade to PCU status. (2) Hepatorenal syndrome: (3) Sepsis: (4) Hypotension: (5) Jaundice due to hepatitis: (6) HEENA (acute kidney injury): (7) Afib: Admission and Anticipated Discharge Date Admission Date: November 16, 2021 Subjective No acute events this morning. Hemodynamically stable. Saturating well on room air. Review of Systems Review of Systems: All systems reviewed & are unremarkable except as noted in HPI & below Physical Exam Constitutional: cooperative and comfortable Eyes: + scleral abnormality (Jaundiced) and PERRL ENMT: external ear and nose normal, oropharynx normal Neck: trachea midline, no thyromegaly Respiratory: normal respiratory effort, lungs clear to auscultation Cardiovascular: Rate/Rhythm: regular rate and + tachycardic Heart Sounds: normal S1 and normal S2 Extremities: + edema (Bilateral lower extremity) Gastrointestinal (Abdomen): Abdominal round, distention and generalized tenderness, normal bowel sounds Skin: + jaundice and + purpura Bleeding noted from the around the IJ central line. Surgicel applied. Neurologic: PERRL, EOMI, accommodation nl, no face palsy, no dysarthria Psychiatric: A+Ox3, euthymic affect Genitourinary: Indwelling Dozier catheter Results & Data Results & Data ([facility]) Vital Signs (Past 12 Hours) Vital Signs Temp Pulse Resp BP Pulse Ox O2 Del Method O2 Flow Rate 11/18/21 06:00 104 H 24 111/68 91 Room Air 11/18/21 05:00 102 H 18 109/72 91 Nasal Cannula 2 11/18/21 04:00 36.7 C 99 H 16 105/74 92 Nasal Cannula 2 11/18/21 03:00 101 H 20 114/73 93 Nasal Cannula 2 11/18/21 02:00 103 H 18 114/75 92 Nasal Cannula 2 11/18/21 01:00 103 H 17 109/72 93 Nasal Cannula 2 11/18/21 00:00 36.5 C 105 H 24 110/77 93 Nasal Cannula 2 11/17/21 23:00 98 H 21 107/75 93 Nasal Cannula 2 11/17/21 22:00 101 H 16 102/64 92 Nasal Cannula 2 Coding Level of Care Code 10867 Subseq Hosp Care Lvl 3 Diagnoses Acute alcoholic hepatitis K70.10 Hepatorenal syndrome K76.7 Sepsis A41.9 Hypotension I95.9 Jaundice due to hepatitis K75.9 HEENA (acute kidney injury) N17.9 Afib I48.91
[2021-11-18] MEDS: cefTRIAXone SODIUM 2,000 MG in DEXTROSE 5% 50 ML IV SCH (09:40)
[2021-11-18] MEDS: PANTOprazole 40 MG TAB PO SCH (09:41)
[2021-11-18] MEDS ORDERED: POTASSIUM CHLORIDE CRTAB 20 MEQ TABCR PO STA (09:54)
--- NOTE | 2021-11-18 10:02 | Gastroenterology Progress Note ---
Date of Service November 18, 2021 Assessment & Plan (1) Acute alcoholic hepatitis: Plan 51 year old male with AFIB, HTN, GERD, alcohol abuse actively using ETOH daily who presented though the ED for evaluation of jaundice, concern for ETOH hepatitis admitted to the ICU, hypotensive on pressor support. We were asked to evaluate in regards to GI bleed, he is a poor historian but suggests dark black stools x 1-2 weeks, last occurring before arrival. Denies hematochezia, hematemesis or coffee ground emesis. DDX discussed: esophagitis, MWT, PUD, varices, gastritis vs other S/P EGD w/ oozing portal gastropathy, nonbleeding varices Diet as tolerated Agree with IV PPI, octreotide x 48 hours then stop Trend H&H, Monitor and document GI output Trend INR, Vit K per ICU/primary service Transfuse PRN Guarded prognosis, alcoholic heptatits, cont NAC protocol, prednisone for alc hep. Lille score at day 4/7. US w/ doppler Appreciate nephrology evaluation, Cont midodrine to support MAP, octreotide, and albumin infusion consult. He has been denied for transfer [place] [facility]. De Anda spoke to Dr. Cunningham at [facility] for possible transfer - Phone number for transfer center [phone]. They are awaiting records, to [facility] for possibility of transfer -- would ask primary service to follow up. Thank you for allowing us to participate in the care of this patient. Please call with any acute changes, questions or concerns. Please see addendum below with additional recommendation from my supervising physician. Admission and Anticipated Discharge Date Admission Date: November 16, 2021 Supervising Physician Co-Signing Physician Notes I performed a history and physical examination of the patient today, including specifically on physical exam - soft abdomen. I have discussed the patient's management with the advanced practitioner. Please refer to the nurse practitioner's note for the documented findings and plan of care. Prognosis guarded. Follow up as OP in Hepatology clinic. Consider transfer to tertiary care center. Recall us if needed. Subjective Pt was seen and evaluated, chart reviewed. No further report of black/bloody output. No BM since evaluation yesterday. Review of Systems Review of Systems: All systems reviewed & are unremarkable except as noted in HPI & below Physical Exam Constitutional: Acutely ill appearing male in no acute distress Eyes: + scleral incterus Respiratory: normal respiratory effort; no respiratory distress and no labored breathing Cardiovascular: Rate/Rhythm: + tachycardic Gastrointestinal (Abdomen): Inspection/Auscultation: + abdomen distended and normal bowel sounds Skin: + jaundice Results & Data ([facility]) Vital Signs (Past 12 Hours) Vital Signs Temp Pulse Resp BP Pulse Ox O2 Del Method O2 Flow Rate 11/18/21 08:00 Room Air 11/18/21 06:00 104 H 24 111/68 91 Room Air 11/18/21 05:00 102 H 18 109/72 91 Nasal Cannula 2 11/18/21 04:00 36.7 C 99 H 16 105/74 92 Nasal Cannula 2 11/18/21 03:00 101 H 20 114/73 93 Nasal Cannula 2 11/18/21 02:00 103 H 18 114/75 92 Nasal Cannula 2 11/18/21 01:00 103 H 17 109/72 93 Nasal Cannula 2 11/18/21 00:00 36.5 C 105 H 24 110/77 93 Nasal Cannula 2 11/17/21 23:00 98 H 21 107/75 93 Nasal Cannula 2 11/17/21 22:00 101 H 16 102/64 92 Nasal Cannula 2 Laboratory Results 11/18/21 11/18/21 11/18/21 Range/Units 07:37 05:35 05:34 WBC (4.8-10.8) K/ul RBC (4.63-6.08) M/uL Hgb (14.0-18.0) g/dl Hct (40.1-51.0) % MCV (80.0-100.0) fL MCH (25.0-34.0) pg MCHC (32.0-36.0) g/dL RDW Std Deviation (36.4-46.3) fL RDW Coeff of Yonatan (11.5-14.5) % Plt Count (130-400) K/uL MPV (9.4-12.4) fL Immature Gran % (Auto) % Neut % (Auto) % Lymph % (Auto) % Hendry % (Auto) % Eos % (Auto) % Baso % (Auto) % Neut # (Auto) (1.4-6.5) K/uL Lymph # (Auto) (1.2-3.4) K/uL Hendry # (Auto) (0.24-0.82) K/uL Eos # (Auto) (0-0.50) K/uL Baso # (Auto) (0-0.2) K/uL Immature Gran # (Auto) (0.00-0.02) K/uL Absolute Nucleated RBC (0-0) K/uL Nucleated RBC % (auto) % Toxic Vacuolation Polychromasia PT (9.0-12.0) Seconds INR (0.9-1.1) Fibrinogen (184-400) mg/dl Sodium (136-145) mmol/L Potassium (3.5-5.1) mmol/L Chloride (98-107) mmol/L Carbon Dioxide (21-32) mmol/L Anion Gap (3-11) BUN (6-23) mg/dl Creatinine POC Creatinine 3.1 H (0.6-1.3) mg/dl Est Cr Clr Drug Dosing Est GFR ( Amer) Est GFR (Non-Af Amer) BUN/Creatinine Ratio Glucose (70-99(Fasting)) mg/dl POC Glucose 175 H 166 H (70-99) mg/dl Calcium (8.5-10.1) mg/dl Phosphorus (2.5-4.9) mg/dl Magnesium (1.7-2.4) mg/dl Total Bilirubin (0.2-1.0) mg/dl Direct Bilirubin AST (13-39) U/L ALT (7-52) U/L Alkaline Phosphatase Total Protein (6.0-8.3) gm/dl Albumin (3.4-5.0) gm/dl Ur Random Sodium mmol/L Miscellaneous Test Miscellaneous Test 2 Ref Lab Test Result Blood Type Antibody Screen 11/18/21 11/18/21 11/18/21 Range/Units 05:29 05:25 05:25 WBC 11.28 H (4.8-10.8) K/ul RBC 2.39 L (4.63-6.08) M/uL Hgb 8.4 L (14.0-18.0) g/dl Hct 24.2 L (40.1-51.0) % MCV 101.3 H (80.0-100.0) fL MCH 35.1 H (25.0-34.0) pg MCHC 34.7 (32.0-36.0) g/dL RDW Std Deviation 57.5 H (36.4-46.3) fL RDW Coeff of Ynoatan 15.8 H (11.5-14.5) % Plt Count 100 L (130-400) K/uL MPV 11.4 (9.4-12.4) fL Immature Gran % (Auto) 2.2 % Neut % (Auto) 82.4 % Lymph % (Auto) 5.2 % Hendry % (Auto) 9.8 % Eos % (Auto) 0.2 % Baso % (Auto) 0.2 % Neut # (Auto) 9.29 H (1.4-6.5) K/uL Lymph # (Auto) 0.59 L (1.2-3.4) K/uL Hendry # (Auto) 1.11 H (0.24-0.82) K/uL Eos # (Auto) 0.02 (0-0.50) K/uL Baso # (Auto) 0.02 (0-0.2) K/uL Immature Gran # (Auto) 0.25 H (0.00-0.02) K/uL Absolute Nucleated RBC 0.16 H (0-0) K/uL Nucleated RBC % (auto) 1.4 % Toxic Vacuolation Polychromasia PT (9.0-12.0) Seconds INR (0.9-1.1) Fibrinogen (184-400) mg/dl Sodium 128 L (136-145) mmol/L Potassium 3.3 L (3.5-5.1) mmol/L Chloride 91 L (98-107) mmol/L Carbon Dioxide 23 (21-32) mmol/L Anion Gap 14 H (3-11) BUN 47 H (6-23) mg/dl Creatinine TNP POC Creatinine (0.6-1.3) mg/dl Est Cr Clr Drug Dosing Not Reportable Est GFR ( Amer) Not Reportable Est GFR (Non-Af Amer) Not Reportable BUN/Creatinine Ratio TNP Glucose 154 H (70-99(Fasting)) mg/dl POC Glucose (70-99) mg/dl Calcium 7.9 L (8.5-10.1) mg/dl Phosphorus 3.2 (2.5-4.9) mg/dl Magnesium TNP (1.7-2.4) mg/dl Total Bilirubin 37.3 H (0.2-1.0) mg/dl Direct Bilirubin Pending AST 96 H (13-39) U/L ALT 69 H (7-52) U/L Alkaline Phosphatase TNP Total Protein 5.1 L (6.0-8.3) gm/dl Albumin 3.2 L (3.4-5.0) gm/dl Ur Random Sodium mmol/L Miscellaneous Test Miscellaneous Test 2 Ref Lab Test Result Pending Blood Type Antibody Screen 11/18/21 11/18/21 11/17/21 Range/Units 00:04 00:04 21:10 WBC (4.8-10.8) K/ul RBC (4.63-6.08) M/uL Hgb 8.8 L (14.0-18.0) g/dl Hct 25.2 L (40.1-51.0) % MCV (80.0-100.0) fL MCH (25.0-34.0) pg MCHC (32.0-36.0) g/dL RDW Std Deviation (36.4-46.3) fL RDW Coeff of Yonatan (11.5-14.5) % Plt Count (130-400) K/uL MPV (9.4-12.4) fL Immature Gran % (Auto) % Neut % (Auto) % Lymph % (Auto) % Hendry % (Auto) % Eos % (Auto) % Baso % (Auto) % Neut # (Auto) (1.4-6.5) K/uL Lymph # (Auto) (1.2-3.4) K/uL Hendry # (Auto) (0.24-0.82) K/uL Eos # (Auto) (0-0.50) K/uL Baso # (Auto) (0-0.2) K/uL Immature Gran # (Auto) (0.00-0.02) K/uL Absolute Nucleated RBC (0-0) K/uL Nucleated RBC % (auto) % Toxic Vacuolation Polychromasia PT 18.2 H (9.0-12.0) Seconds INR 1.8 H (0.9-1.1) Fibrinogen (184-400) mg/dl Sodium (136-145) mmol/L Potassium (3.5-5.1) mmol/L Chloride (98-107) mmol/L Carbon Dioxide (21-32) mmol/L Anion Gap (3-11) BUN (6-23) mg/dl Creatinine POC Creatinine (0.6-1.3) mg/dl Est Cr Clr Drug Dosing Est GFR ( Amer) Est GFR (Non-Af Amer) BUN/Creatinine Ratio Glucose (70-99(Fasting)) mg/dl POC Glucose (70-99) mg/dl Calcium (8.5-10.1) mg/dl Phosphorus (2.5-4.9) mg/dl Magnesium (1.7-2.4) mg/dl Total Bilirubin (0.2-1.0) mg/dl Direct Bilirubin AST (13-39) U/L ALT (7-52) U/L Alkaline Phosphatase Total Protein (6.0-8.3) gm/dl Albumin (3.4-5.0) gm/dl Ur Random Sodium 43 mmol/L Miscellaneous Test Miscellaneous Test 2 Ref Lab Test Result Blood Type Antibody Screen 11/17/21 11/17/21 11/17/21 Range/Units 21:03 15:40 13:16 WBC (4.8-10.8) K/ul RBC (4.63-6.08) M/uL Hgb (14.0-18.0) g/dl Hct (40.1-51.0) % MCV (80.0-100.0) fL MCH (25.0-34.0) pg MCHC (32.0-36.0) g/dL RDW Std Deviation (36.4-46.3) fL RDW Coeff of Yonatan (11.5-14.5) % Plt Count (130-400) K/uL MPV (9.4-12.4) fL Immature Gran % (Auto) % Neut % (Auto) % Lymph % (Auto) % Hendry % (Auto) % Eos % (Auto) % Baso % (Auto) % Neut # (Auto) (1.4-6.5) K/uL Lymph # (Auto) (1.2-3.4) K/uL Hendry # (Auto) (0.24-0.82) K/uL Eos # (Auto) (0-0.50) K/uL Baso # (Auto) (0-0.2) K/uL Immature Gran # (Auto) (0.00-0.02) K/uL Absolute Nucleated RBC (0-0) K/uL Nucleated RBC % (auto) % Toxic Vacuolation Polychromasia PT (9.0-12.0) Seconds INR (0.9-1.1) Fibrinogen (184-400) mg/dl Sodium (136-145) mmol/L Potassium (3.5-5.1) mmol/L Chloride (98-107) mmol/L Carbon Dioxide (21-32) mmol/L Anion Gap (3-11) BUN (6-23) mg/dl Creatinine POC Creatinine 2.4 H (0.6-1.3) mg/dl Est Cr Clr Drug Dosing Est GFR ( Amer) Est GFR (Non-Af Amer) BUN/Creatinine Ratio Glucose (70-99(Fasting)) mg/dl POC Glucose 217 H 195 H (70-99) mg/dl Calcium (8.5-10.1) mg/dl Phosphorus (2.5-4.9) mg/dl Magnesium (1.7-2.4) mg/dl Total Bilirubin (0.2-1.0) mg/dl Direct Bilirubin AST (13-39) U/L ALT (7-52) U/L Alkaline Phosphatase Total Protein (6.0-8.3) gm/dl Albumin (3.4-5.0) gm/dl Ur Random Sodium mmol/L Miscellaneous Test Miscellaneous Test 2 Ref Lab Test Result Blood Type Antibody Screen 11/17/21 11/17/21 11/17/21 Range/Units 13:16 13:16 11:48 WBC 9.62 (4.8-10.8) K/ul RBC 2.79 L (4.63-6.08) M/uL Hgb 9.7 L (14.0-18.0) g/dl Hct 28.6 L (40.1-51.0) % MCV 102.5 H (80.0-100.0) fL MCH 34.8 H (25.0-34.0) pg MCHC 33.9 (32.0-36.0) g/dL RDW Std Deviation 58.6 H (36.4-46.3) fL RDW Coeff of Yonatan 15.9 H (11.5-14.5) % Plt Count 105 L (130-400) K/uL MPV 11.6 (9.4-12.4) fL Immature Gran % (Auto) 2.2 % Neut % (Auto) 83.6 % Lymph % (Auto) 6.9 % Hendry % (Auto) 6.7 % Eos % (Auto) 0.4 % Baso % (Auto) 0.2 % Neut # (Auto) 8.05 H (1.4-6.5) K/uL Lymph # (Auto) 0.66 L (1.2-3.4) K/uL Hendry # (Auto) 0.64 (0.24-0.82) K/uL Eos # (Auto) 0.04 (0-0.50) K/uL Baso # (Auto) 0.02 (0-0.2) K/uL Immature Gran # (Auto) 0.21 H (0.00-0.02) K/uL Absolute Nucleated RBC 0.09 H (0-0) K/uL Nucleated RBC % (auto) 0.9 % Toxic Vacuolation Polychromasia PT (9.0-12.0) Seconds INR (0.9-1.1) Fibrinogen (184-400) mg/dl Sodium 127 L (136-145) mmol/L Potassium 3.7 (3.5-5.1) mmol/L Chloride 91 L (98-107) mmol/L Carbon Dioxide 21 (21-32) mmol/L Anion Gap 15 H (3-11) BUN 37 H (6-23) mg/dl Creatinine TNP POC Creatinine (0.6-1.3) mg/dl Est Cr Clr Drug Dosing Not Reportable Est GFR ( Amer) Not Reportable Est GFR (Non-Af Amer) Not Reportable BUN/Creatinine Ratio TNP Glucose 147 H (70-99(Fasting)) mg/dl POC Glucose 157 H (70-99) mg/dl Calcium 8.0 L (8.5-10.1) mg/dl Phosphorus 2.8 D (2.5-4.9) mg/dl Magnesium 2.1 (1.7-2.4) mg/dl Total Bilirubin (0.2-1.0) mg/dl Direct Bilirubin AST (13-39) U/L ALT (7-52) U/L Alkaline Phosphatase Total Protein (6.0-8.3) gm/dl Albumin (3.4-5.0) gm/dl Ur Random Sodium mmol/L Miscellaneous Test Miscellaneous Test 2 Ref Lab Test Result Blood Type Antibody Screen 11/17/21 11/17/21 11/17/21 Range/Units 11:47 09:46 07:47 WBC 9.38 (4.8-10.8) K/ul RBC 2.92 L (4.63-6.08) M/uL Hgb 10.4 L (14.0-18.0) g/dl Hct 29.2 L (40.1-51.0) % MCV 100.0 (80.0-100.0) fL MCH 35.6 H (25.0-34.0) pg MCHC 35.6 (32.0-36.0) g/dL RDW Std Deviation 56.9 H (36.4-46.3) fL RDW Coeff of Yonatan 15.9 H (11.5-14.5) % Plt Count 105 L (130-400) K/uL MPV 11.9 (9.4-12.4) fL Immature Gran % (Auto) 2.5 % Neut % (Auto) 82.3 % Lymph % (Auto) 6.4 % Hendry % (Auto) 7.8 % Eos % (Auto) 0.5 % Baso % (Auto) 0.5 % Neut # (Auto) 7.72 H (1.4-6.5) K/uL Lymph # (Auto) 0.60 L (1.2-3.4) K/uL Hendry # (Auto) 0.73 (0.24-0.82) K/uL Eos # (Auto) 0.05 (0-0.50) K/uL Baso # (Auto) 0.05 (0-0.2) K/uL Immature Gran # (Auto) 0.23 H (0.00-0.02) K/uL Absolute Nucleated RBC 0.09 H (0-0) K/uL Nucleated RBC % (auto) 1.0 % Toxic Vacuolation 1+ Polychromasia 1+ PT (9.0-12.0) Seconds INR (0.9-1.1) Fibrinogen 288 (184-400) mg/dl Sodium (136-145) mmol/L Potassium (3.5-5.1) mmol/L Chloride (98-107) mmol/L Carbon Dioxide (21-32) mmol/L Anion Gap (3-11) BUN (6-23) mg/dl Creatinine POC Creatinine (0.6-1.3) mg/dl Est Cr Clr Drug Dosing Est GFR ( Amer) Est GFR (Non-Af Amer) BUN/Creatinine Ratio Glucose (70-99(Fasting)) mg/dl POC Glucose (70-99) mg/dl Calcium (8.5-10.1) mg/dl Phosphorus (2.5-4.9) mg/dl Magnesium (1.7-2.4) mg/dl Total Bilirubin (0.2-1.0) mg/dl Direct Bilirubin AST (13-39) U/L ALT (7-52) U/L Alkaline Phosphatase Total Protein (6.0-8.3) gm/dl Albumin (3.4-5.0) gm/dl Ur Random Sodium mmol/L Miscellaneous Test Miscellaneous Test 2 Ref Lab Test Result Blood Type O Positive Antibody Screen NEGATIVE 11/16/21 Range/Units 18:55 WBC (4.8-10.8) K/ul RBC (4.63-6.08) M/uL Hgb (14.0-18.0) g/dl Hct (40.1-51.0) % MCV (80.0-100.0) fL MCH (25.0-34.0) pg MCHC (32.0-36.0) g/dL RDW Std Deviation (36.4-46.3) fL RDW Coeff of Yonatan (11.5-14.5) % Plt Count (130-400) K/uL MPV (9.4-12.4) fL Immature Gran % (Auto) % Neut % (Auto) % Lymph % (Auto) % Hendry % (Auto) % Eos % (Auto) % Baso % (Auto) % Neut # (Auto) (1.4-6.5) K/uL Lymph # (Auto) (1.2-3.4) K/uL Hendry # (Auto) (0.24-0.82) K/uL Eos # (Auto) (0-0.50) K/uL Baso # (Auto) (0-0.2) K/uL Immature Gran # (Auto) (0.00-0.02) K/uL Absolute Nucleated RBC (0-0) K/uL Nucleated RBC % (auto) % Toxic Vacuolation Polychromasia PT (9.0-12.0) Seconds INR (0.9-1.1) Fibrinogen (184-400) mg/dl Sodium (136-145) mmol/L Potassium (3.5-5.1) mmol/L Chloride (98-107) mmol/L Carbon Dioxide (21-32) mmol/L Anion Gap (3-11) BUN (6-23) mg/dl Creatinine POC Creatinine (0.6-1.3) mg/dl Est Cr Clr Drug Dosing Est GFR ( Amer) Est GFR (Non-Af Amer) BUN/Creatinine Ratio Glucose (70-99(Fasting)) mg/dl POC Glucose (70-99) mg/dl Calcium (8.5-10.1) mg/dl Phosphorus (2.5-4.9) mg/dl Magnesium (1.7-2.4) mg/dl Total Bilirubin (0.2-1.0) mg/dl Direct Bilirubin AST (13-39) U/L ALT (7-52) U/L Alkaline Phosphatase Total Protein (6.0-8.3) gm/dl Albumin (3.4-5.0) gm/dl Ur Random Sodium mmol/L Miscellaneous Test REPORT Miscellaneous Test 2 REPORT Ref Lab Test Result Blood Type Antibody Screen
[2021-11-18 10:17] LABS: Bilirubin Direct 22.8 mg/dl (0-0.2)
[2021-11-18] MEDS: FOLIC ACID 1 MG TAB PO SCH (11:06)
[2021-11-18] MEDS: FOLIC ACID 1 MG in SYRINGE 9.8 ML IV SCH (11:14)
[2021-11-18] MEDS: prednisoLONE sod phosphate 15 MG/5 ML PO SCH (11:31)
[2021-11-18] MEDS: AcetylCYSTEINE 10,000 MG in D5W 1L (Maint Dose #2) IV SCH (11:32)
[2021-11-18 12:21] LABS: HBSAG NON-REACTIVE (NON-REACTIVE); Hepatitis A Antibody IgM NON-REACTIVE (NON-REACTIVE); Hepatitis B Core Antibody IgM NON-REACTIVE (NON-REACTIVE)
[2021-11-18 16:31] LABS: INR 1.6 (0.9-1.1); Prothrombin Time 16.4 Seconds (9.0-12.0)
--- NOTE | 2021-11-18 17:03 | Nephrology Progress Note ---
Date of Service November 18, 2021 Assessment & Plan (1) HEENA (acute kidney injury): Plan: 1) HEENA (acute kidney injury): Nonoliguric stage 2 HEENA w/ presenting POC creatinine 3. baseline creatinine 1.2 as recently as late last year. not a liver transplant candidate and therefore not a dialysis candidate should the need arise. Hepatorenal syndrome certainly on differential but ischemic ATN also a concern,> treat HRS while -defer to critical care/ primary service if not receiving norepinephrine would plan for midodrine 5-7.5 mg tid; already on octreotide w/ albumin -BMP as below -Renally dose Abx. (2) Disorder of fluid or electrolyte: Replete electrolyte as needed , K > 4. mg > 2. Poor prognosis given constant HYponatremia Wating transfer to [place].. (2) Disorder of fluid or electrolyte: Admission and Anticipated Discharge Date Admission Date: November 16, 2021 Subjective Not much changed clinically continues to be critically ill. Review of Systems Review of Systems: Unobtainable due to cognitive status Results & Data ([facility]) Vital Signs (Past 12 Hours) Vital Signs Temp Pulse Resp BP Pulse Ox O2 Del Method 11/18/21 16:00 106 H 29 H 91 11/18/21 16:00 108/69 11/18/21 15:00 114 H 28 H 91 11/18/21 15:00 100/66 11/18/21 14:52 104/74 11/18/21 14:52 117 H 25 H 92 11/18/21 14:00 104 H 24 88 L 11/18/21 14:00 91/68 L 11/18/21 13:00 135 H 22 80 L 11/18/21 13:00 116/56 L 11/18/21 12:00 107 H 22 91 11/18/21 12:00 96/68 L 11/18/21 11:00 107 H 22 90 11/18/21 11:00 103/65 11/18/21 16:00 37.3 C 11/18/21 10:00 100 H 22 91 11/18/21 10:00 105/62 11/18/21 09:00 104 H 20 90 11/18/21 09:00 108/65 11/18/21 08:01 93/68 L 11/18/21 08:01 113 H 23 91 11/18/21 08:00 113 H 23 92 11/18/21 07:00 99 H 23 91 11/18/21 07:00 102/66 11/18/21 08:00 Room Air 11/18/21 06:00 104 H 24 111/68 91 Room Air Laboratory Results 11/18/21 05:29 11/18/21 05:25
[2021-11-18] MEDS: LORazepam 1 MG TAB PO PRN (17:52)
[2021-11-19] MEDS: THIAMINE HCL 500 MG in SODIUM CHLORIDE 0.9% 50 ML IV SCH ×3 (01:52→17:02)
[2021-11-19] MEDS: ALBUMIN 25% 100 mL 25 GM/100 ML VIAL IV SCH ×4 (01:52→18:00)
[2021-11-19] MEDS: OCTREOTIDE ACETATE 500 MCG in DEXTROSE 5% 100 ML IV SCH ×3 (01:57→21:27)
[2021-11-19] MEDS: AcetylCYSTEINE 10,000 MG in D5W 1L (Maint Dose #2) IV SCH (03:20)
[2021-11-19 05:53] LABS: INR 1.6 (0.9-1.1)
[2021-11-19 06:12] LABS: Alanine Aminotransferase 56 U/L (7-52); Albumin Level 3.7 gm/dl (3.4-5.0); Anion Gap 17 (3-11); Aspartate Aminotransferase 71 U/L (13-39); Bilirubin,Total 37.8 mg/dl (0.2-1.0); Calcium 7.7 mg/dl (8.5-10.1); Carbon Dioxide 20 mmol/L (21-32); Chloride 88 mmol/L (98-107); Glucose 169 mg/dl (70-99(Fasting)); Phosphorus 2.9 mg/dl (2.5-4.9); Potassium 2.9 mmol/L (3.5-5.1); Sodium 125 mmol/L (136-145); Total Protein 5.3 gm/dl (6.0-8.3)
[2021-11-19 06:13] LABS: Basophils # (auto) 0.02 K/uL (0-0.2); Basophils % (auto) 0.2 %; Eosinophils # (auto) 0.01 K/uL (0-0.50); Eosinophils % (auto) 0.1 %; Hematocrit (blood only) 23.1 % (40.1-51.0); Hemoglobin 8.1 g/dl (14.0-18.0); Immature Granulocytes # (auto) 0.41 K/uL (0.00-0.02); Immature Granulocytes % (auto) 3.3 %; Lymphocytes # (auto) 0.51 K/uL (1.2-3.4); Lymphocytes % (auto) 4.1 %; Mean Corpuscular Hemoglobin 36.2 pg (25.0-34.0); Mean Corpuscular Hgb Conc 35.1 g/dL (32.0-36.0); Mean Corpuscular Volume 103.1 fL (80.0-100.0); Mean Platelet Volume 11.8 fL (9.4-12.4); Monocytes % (auto) 10.5 %; Neutrophils # (auto) 10.13 K/uL (1.4-6.5); Neutrophils % (auto) 81.8 %; Nucleated RBC # (auto) 0.15 K/uL (0-0); Nucleated RBC % (auto) 1.2 %; Platelet Count 94 K/uL (130-400); RDW Coefficient of Variation 16.9 % (11.5-14.5); RDW Standard Deviation 58.7 fL (36.4-46.3); Red Blood Count 2.24 M/uL (4.63-6.08); White Blood Count 12.38 K/ul (4.8-10.8)
[2021-11-19 06:16] LABS: Bilirubin Direct 22.9 mg/dl (0-0.2)
[2021-11-19] MEDS ORDERED: POTASSIUM CHLORIDE 20 MEQ/15 ML UDC PO STA (06:30)
[2021-11-19] MEDS: POTASSIUM CHLORIDE / WTR 10 MEQ/100 ML PLCT IV SCH ×4 (06:42→10:15)
[2021-11-19] MEDS: INSULIN ASPART PER UNIT SC SCH ×4 (08:03→20:12)
--- NOTE | 2021-11-19 08:06 | Hospitalist Progress Note ---
Date of Service November 19, 2021 Assessment & Plan (1) Acute alcoholic hepatitis: (2) Alcohol abuse: (3) Hypotension: (4) Jaundice due to hepatitis: Plan: A 51-year-old male with alcohol abuse presents with jaundice and also hypotension and tachycardia. 1. Possible sepsis with hypotension, tachycardia. Started Levophed drip on admission, currently off pressors Cefepime on admission -> now on ceftriaxone (possible SBP) Follow the cultures.Procalcitonin 1.79 2. Possible alcoholic hepatitis. Total bilirubin 33.8, direct bilirubin 20.7, AST 156, ALT 89. Recently was taking Tylenol for his back pain. ICU started him on steroids and also N acetylcysteine. We will follow the repeat labs. GI consulted - cont. 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 The Z line was irregular. There was mild portal gastropathy in the fundus and body. There was a small amount of bilious fluid in the stomach. The antrum was normal. The duodenum was normal. There was contact oozing. Per GI: We are also consulted for alc hep. His Na is 127, Bili 39 --> 33, INR 1.8--> 2, creat 3.0 His DF is 76, MELD is 37. Blood and urine cx pending. He has been receiving NAC and solumederol for alc hep; He is on albumin, octreotide, and now midodrine with borderline uop. RECS: Diet as tolerated, follow hgb. Once daily oral PPI. Cont NAC protocol, prednisone for alc hep. Lille score at day 4. US with doppler obtained IMPRESSION: Hepatic steatosis resulting in suboptimal evaluation portal and hepatic veins. However, no evidence for portal or hepatic vein thrombosis. consider MRCP Елена, follow uop. Cont midodrine to support MAP, octreotide, and albumin infusions. Nephrology consulted and following. Echo obtained Mild concentric LVH. LV wall motion is normal. LVEF 55 to 60%. RV is normal in size and function. Mild tricuspid regurg. Interatrial septum is intact with no evidence for an atrial septal defect. There is no evidence of [id number] shunt as documented with the injected agitated saline contrast. Prognosis guarded. He has been [place] [facility] Echavarria (GI) spoke to Dr. Cunningham at [facility] for possible transfer (on 11/17) - Phone number for transfer center [phone]. They are awaiting records, to eval for possibility of transfer -- primary service to follow up. 11/18 - Requested records, CD with images and echo to be sent to [facility]. Contacted [facility] this afternoon, however did not hear back. We will be reaching out to them again. 11/19 -contacted [facility] again awaiting further response, MELD score continues to be elevated (38). 3. Alcoholism. Ativan protocol and IV thiamine. Received banana bag. 4. Possible GI bleed. The patient on Protonix. Received IV vitamin K, as INR is 1.8 on admission. GI consulted. Underwent EGD as above. 5. Hyponatremia, sodium 126 on admission. Probably from his alcoholism. Getting fluids. Nephrology consulted. 6. Acute kidney injury. Possible hepatorenal syndrome with creatinine 3. Follow repeat labs. Nephrology consulted. Currently pt on octreotide, albumin. 7. History of atrial fibrillation s/p MAZE. On admission hypotensive, on Levophed drip -> now on midodrine. He is taking only Coreg, not taking any blood thinner currently. Developed Afib w/ RVR. Current Hr low 100s. Cont. monitor on tele. DVT prophylaxis: SCDs for now. DISPOSITION:ICU -> PCU FULL CODE Admission and Anticipated Discharge Date Admission Date: November 16, 2021 Subjective Patient seen in follow-up of jaundice, weakness, treated for alcoholic hepatitis On admission found to have bilirubin of 39/33, creatinine of 3 Patient was admitted to ICU Initially tried to [place] [facility] however due to ongoing alcohol use, patient not a candidate for transplant Given hypotension, patient required pressors, currently off pressors Had some bleeding from his right IJ site - seems fixed now He is somewhat drowsy, says that he feels tired, however able to answer simple questions appropriately Per GI - tried to transfer to [facility] Obtained records/CD with images and echo, and requested these to be sent to [facility] yesterday. Family at the bedside and updated MELD score elevated 38 Patient denies any chest pain, has some abdominal discomfort, incr. shortness of breath - currently requiring 3L. Denies fevers chills. Review of Systems Review of Systems: All systems reviewed & are unremarkable except as noted in Subjective Physical Exam Physical Exam: GENERAL: drowsy, however able to answer simple questions appropriately HEENT: +scleral icterus present. Pupils equal, round and reactive to light. Oral mucosa moist. NECK: R IJ placed (bleeding at the site seems resolved) CARDIOVASCULAR: + tachycardic RESPIRATORY : Normal AP diameter. No accessory muscle use.+ crackles, using 3L of suppl. O2 ABDOMEN: Somewhat tense. Mild discomfort on palpation. Bowel sounds present. NEURO: Alert and oriented x3. No facial droop. Speech is clear. Obeys commands. Moves extremities. EXTREMITIES: 1+ LE edema present. SKIN: jaundiced Results & Data Results & Data ([facility]) Vital Signs (Past 12 Hours) Vital Signs Temp Pulse Pulse Resp BP Pulse Ox O2 Del Method 11/19/21 04:00 36.5 C 96 H 16 119/76 95 Nasal Cannula 11/19/21 00:00 105 H 11/18/21 23:00 36.8 C 103 H 25 H 103/71 94 Nasal Cannula O2 Flow Rate 11/19/21 04:00 4 11/19/21 00:00 11/18/21 23:00 4 Laboratory Results 11/19/21 11/19/21 11/19/21 Range/Units 07:42 06:13 04:52 WBC (4.8-10.8) K/ul RBC (4.63-6.08) M/uL Hgb (14.0-18.0) g/dl Hct (40.1-51.0) % MCV (80.0-100.0) fL MCH (25.0-34.0) pg MCHC (32.0-36.0) g/dL RDW Std Deviation (36.4-46.3) fL RDW Coeff of Yonatan (11.5-14.5) % Plt Count (130-400) K/uL MPV (9.4-12.4) fL Immature Gran % (Auto) % Neut % (Auto) % Lymph % (Auto) % [place] % (Auto) % Eos % (Auto) % Baso % (Auto) % Neut # (Auto) (1.4-6.5) K/uL Lymph # (Auto) (1.2-3.4) K/uL [place] # (Auto) (0.24-0.82) K/uL Eos # (Auto) (0-0.50) K/uL Baso # (Auto) (0-0.2) K/uL Immature Gran # (Auto) (0.00-0.02) K/uL Absolute Nucleated RBC (0-0) K/uL Nucleated RBC % (auto) % PT (9.0-12.0) Seconds INR (0.9-1.1) Sodium (136-145) mmol/L Potassium (3.5-5.1) mmol/L Chloride (98-107) mmol/L Carbon Dioxide (21-32) mmol/L Anion Gap (3-11) BUN Creatinine POC Creatinine 3.1 H (0.6-1.3) mg/dl Est Cr Clr Drug Dosing Est GFR ( Amer) Est GFR (Non-Af Amer) BUN/Creatinine Ratio Glucose (70-99(Fasting)) mg/dl POC Glucose 184 H (70-99) mg/dl Calcium (8.5-10.1) mg/dl Phosphorus (2.5-4.9) mg/dl Magnesium Total Bilirubin (0.2-1.0) mg/dl Direct Bilirubin (0-0.2) mg/dl AST (13-39) U/L ALT (7-52) U/L Alkaline Phosphatase Total Protein (6.0-8.3) gm/dl Albumin (3.4-5.0) gm/dl Hepatitis A IgM Ab (NON-REACTIVE) Hep Bs Antigen (NON-REACTIVE) Hep Bs Ag Confirmation Hep B Core IgM Ab (NON-REACTIVE) Hepatitis C Ab (EIA) (NON-REACTIVE) Hep C Ab Signal/Cutoff (<1.00) Miscellaneous Test Miscellaneous Test 2 Ref Lab Test Result Pending 11/19/21 11/19/21 11/19/21 Range/Units 04:52 04:52 04:52 WBC 12.38 H (4.8-10.8) K/ul RBC 2.24 L (4.63-6.08) M/uL Hgb 8.1 L (14.0-18.0) g/dl Hct 23.1 L (40.1-51.0) % MCV 103.1 H (80.0-100.0) fL MCH 36.2 H (25.0-34.0) pg MCHC 35.1 (32.0-36.0) g/dL RDW Std Deviation 58.7 H (36.4-46.3) fL RDW Coeff of Yonatan 16.9 H (11.5-14.5) % Plt Count 94 L (130-400) K/uL MPV 11.8 (9.4-12.4) fL Immature Gran % (Auto) 3.3 % Neut % (Auto) 81.8 % Lymph % (Auto) 4.1 % [place] % (Auto) 10.5 % Eos % (Auto) 0.1 % Baso % (Auto) 0.2 % Neut # (Auto) 10.13 H (1.4-6.5) K/uL Lymph # (Auto) 0.51 L (1.2-3.4) K/uL [place] # (Auto) 1.30 H (0.24-0.82) K/uL Eos # (Auto) 0.01 (0-0.50) K/uL Baso # (Auto) 0.02 (0-0.2) K/uL Immature Gran # (Auto) 0.41 H (0.00-0.02) K/uL Absolute Nucleated RBC 0.15 H (0-0) K/uL Nucleated RBC % (auto) 1.2 % PT 17.0 H (9.0-12.0) Seconds INR 1.6 H (0.9-1.1) Sodium 125 L (136-145) mmol/L Potassium 2.9 L (3.5-5.1) mmol/L Chloride 88 L (98-107) mmol/L Carbon Dioxide 20 L (21-32) mmol/L Anion Gap 17 H (3-11) BUN TNP Creatinine TNP POC Creatinine (0.6-1.3) mg/dl Est Cr Clr Drug Dosing TNP Est GFR ( Amer) TNP Est GFR (Non-Af Amer) TNP BUN/Creatinine Ratio TNP Glucose 169 H (70-99(Fasting)) mg/dl POC Glucose (70-99) mg/dl Calcium 7.7 L (8.5-10.1) mg/dl Phosphorus 2.9 (2.5-4.9) mg/dl Magnesium TNP Total Bilirubin 37.8 H (0.2-1.0) mg/dl Direct Bilirubin 22.9 H (0-0.2) mg/dl AST 71 H (13-39) U/L ALT 56 H (7-52) U/L Alkaline Phosphatase TNP Total Protein 5.3 L (6.0-8.3) gm/dl Albumin 3.7 (3.4-5.0) gm/dl Hepatitis A IgM Ab (NON-REACTIVE) Hep Bs Antigen (NON-REACTIVE) Hep Bs Ag Confirmation Hep B Core IgM Ab (NON-REACTIVE) Hepatitis C Ab (EIA) (NON-REACTIVE) Hep C Ab Signal/Cutoff (<1.00) Miscellaneous Test Miscellaneous Test 2 Ref Lab Test Result 11/18/21 11/18/21 11/18/21 Range/Units 19:41 16:28 16:03 WBC (4.8-10.8) K/ul RBC (4.63-6.08) M/uL Hgb (14.0-18.0) g/dl Hct (40.1-51.0) % MCV (80.0-100.0) fL MCH (25.0-34.0) pg MCHC (32.0-36.0) g/dL RDW Std Deviation (36.4-46.3) fL RDW Coeff of Yonatan (11.5-14.5) % Plt Count (130-400) K/uL MPV (9.4-12.4) fL Immature Gran % (Auto) % Neut % (Auto) % Lymph % (Auto) % [place] % (Auto) % Eos % (Auto) % Baso % (Auto) % Neut # (Auto) (1.4-6.5) K/uL Lymph # (Auto) (1.2-3.4) K/uL [place] # (Auto) (0.24-0.82) K/uL Eos # (Auto) (0-0.50) K/uL Baso # (Auto) (0-0.2) K/uL Immature Gran # (Auto) (0.00-0.02) K/uL Absolute Nucleated RBC (0-0) K/uL Nucleated RBC % (auto) % PT 16.4 H (9.0-12.0) Seconds INR 1.6 H (0.9-1.1) Sodium (136-145) mmol/L Potassium (3.5-5.1) mmol/L Chloride (98-107) mmol/L Carbon Dioxide (21-32) mmol/L Anion Gap (3-11) BUN Creatinine POC Creatinine (0.6-1.3) mg/dl Est Cr Clr Drug Dosing Est GFR ( Amer) Est GFR (Non-Af Amer) BUN/Creatinine Ratio Glucose (70-99(Fasting)) mg/dl POC Glucose 255 H 220 H (70-99) mg/dl Calcium (8.5-10.1) mg/dl Phosphorus (2.5-4.9) mg/dl Magnesium Total Bilirubin (0.2-1.0) mg/dl Direct Bilirubin (0-0.2) mg/dl AST (13-39) U/L ALT (7-52) U/L Alkaline Phosphatase Total Protein (6.0-8.3) gm/dl Albumin (3.4-5.0) gm/dl Hepatitis A IgM Ab (NON-REACTIVE) Hep Bs Antigen (NON-REACTIVE) Hep Bs Ag Confirmation Hep B Core IgM Ab (NON-REACTIVE) Hepatitis C Ab (EIA) (NON-REACTIVE) Hep C Ab Signal/Cutoff (<1.00) Miscellaneous Test Miscellaneous Test 2 Ref Lab Test Result 11/18/21 11/18/21 11/16/21 Range/Units 12:12 05:25 18:55 WBC (4.8-10.8) K/ul RBC (4.63-6.08) M/uL Hgb (14.0-18.0) g/dl Hct (40.1-51.0) % MCV (80.0-100.0) fL MCH (25.0-34.0) pg MCHC (32.0-36.0) g/dL RDW Std Deviation (36.4-46.3) fL RDW Coeff of Yonatan (11.5-14.5) % Plt Count (130-400) K/uL MPV (9.4-12.4) fL Immature Gran % (Auto) % Neut % (Auto) % Lymph % (Auto) % [place] % (Auto) % Eos % (Auto) % Baso % (Auto) % Neut # (Auto) (1.4-6.5) K/uL Lymph # (Auto) (1.2-3.4) K/uL [place] # (Auto) (0.24-0.82) K/uL Eos # (Auto) (0-0.50) K/uL Baso # (Auto) (0-0.2) K/uL Immature Gran # (Auto) (0.00-0.02) K/uL Absolute Nucleated RBC (0-0) K/uL Nucleated RBC % (auto) % PT (9.0-12.0) Seconds INR (0.9-1.1) Sodium (136-145) mmol/L Potassium (3.5-5.1) mmol/L Chloride (98-107) mmol/L Carbon Dioxide (21-32) mmol/L Anion Gap (3-11) BUN Creatinine POC Creatinine (0.6-1.3) mg/dl Est Cr Clr Drug Dosing Est GFR ( Amer) Est GFR (Non-Af Amer) BUN/Creatinine Ratio Glucose (70-99(Fasting)) mg/dl POC Glucose 181 H (70-99) mg/dl Calcium (8.5-10.1) mg/dl Phosphorus (2.5-4.9) mg/dl Magnesium Total Bilirubin (0.2-1.0) mg/dl Direct Bilirubin 22.8 H (0-0.2) mg/dl AST (13-39) U/L ALT (7-52) U/L Alkaline Phosphatase Total Protein (6.0-8.3) gm/dl Albumin (3.4-5.0) gm/dl Hepatitis A IgM Ab (NON-REACTIVE) Hep Bs Antigen (NON-REACTIVE) Hep Bs Ag Confirmation Hep B Core IgM Ab (NON-REACTIVE) Hepatitis C Ab (EIA) (NON-REACTIVE) Hep C Ab Signal/Cutoff (<1.00) Miscellaneous Test REPORT Miscellaneous Test 2 REPORT Ref Lab Test Result 11/16/21 Range/Units 17:45 WBC (4.8-10.8) K/ul RBC (4.63-6.08) M/uL Hgb (14.0-18.0) g/dl Hct (40.1-51.0) % MCV (80.0-100.0) fL MCH (25.0-34.0) pg MCHC (32.0-36.0) g/dL RDW Std Deviation (36.4-46.3) fL RDW Coeff of Yonatan (11.5-14.5) % Plt Count (130-400) K/uL MPV (9.4-12.4) fL Immature Gran % (Auto) % Neut % (Auto) % Lymph % (Auto) % [place] % (Auto) % Eos % (Auto) % Baso % (Auto) % Neut # (Auto) (1.4-6.5) K/uL Lymph # (Auto) (1.2-3.4) K/uL [place] # (Auto) (0.24-0.82) K/uL Eos # (Auto) (0-0.50) K/uL Baso # (Auto) (0-0.2) K/uL Immature Gran # (Auto) (0.00-0.02) K/uL Absolute Nucleated RBC (0-0) K/uL Nucleated RBC % (auto) % PT (9.0-12.0) Seconds INR (0.9-1.1) Sodium (136-145) mmol/L Potassium (3.5-5.1) mmol/L Chloride (98-107) mmol/L Carbon Dioxide (21-32) mmol/L Anion Gap (3-11) BUN Creatinine POC Creatinine (0.6-1.3) mg/dl Est Cr Clr Drug Dosing Est GFR ( Amer) Est GFR (Non-Af Amer) BUN/Creatinine Ratio Glucose (70-99(Fasting)) mg/dl POC Glucose (70-99) mg/dl Calcium (8.5-10.1) mg/dl Phosphorus (2.5-4.9) mg/dl Magnesium Total Bilirubin (0.2-1.0) mg/dl Direct Bilirubin (0-0.2) mg/dl AST (13-39) U/L ALT (7-52) U/L Alkaline Phosphatase Total Protein (6.0-8.3) gm/dl Albumin (3.4-5.0) gm/dl Hepatitis A IgM Ab NON-REACTIVE (NON-REACTIVE) Hep Bs Antigen NON-REACTIVE (NON-REACTIVE) Hep Bs Ag Confirmation TNP Hep B Core IgM Ab NON-REACTIVE (NON-REACTIVE) Hepatitis C Ab (EIA) NON-REACTIVE (NON-REACTIVE) Hep C Ab Signal/Cutoff 0.09 (<1.00) Miscellaneous Test Miscellaneous Test 2 Ref Lab Test Result Medications Administered Current Inpatient Medications Dextrose (Dextrose 50% 50 Ml Syringe) 25 - 50 ml IV UD PRN; Protocol PRN Reason: Hypoglycemia Protocol Stop: 12/17/21 12:44 Folic Acid (Folic Acid 1 Mg Tab) 1 mg PO QAM MAYRA Stop: 12/18/21 09:59 Last Admin: 11/18/21 11:06 Dose: 1 mg Glucagon (Glucagon For Inj 1 Mg Vial) 1 mg IM UD PRN; Protocol PRN Reason: Hypoglycemia Protocol Stop: 12/17/21 12:44 Glucose (Glucose 40% Gel 15 Gm Tube) 15 - 30 gm PO UD PRN; Protocol PRN Reason: Hypoglycemia Protocol Stop: 12/17/21 12:44 Glucose (Glucose 10 Tab/Tube) 4 - 8 tab PO UD PRN; Protocol PRN Reason: Hypoglycemia Protocol Stop: 12/17/21 12:44 Ceftriaxone Sodium 2,000 mg/ (Dextrose) 70 mls @ 100 mls/hr IV Q24H MAYRA; Protocol Stop: 11/22/21 08:59 Last Infusion: 11/18/21 11:06 Dose: Infused Lorazepam 1 mg/ Syringe 1 mls @ 2 mls/min IV UD PRN; Protocol PRN Reason: EtOH Withdrawal AWSS Score 6,7 Stop: 12/17/21 00:21 Lorazepam 2 mg/ Syringe 2 mls @ 2 mls/min IV UD PRN; Protocol PRN Reason: EtOH Withdrawal AWSS Score 8,9 Stop: 12/17/21 00:21 Lorazepam 3 mg/ Syringe 3 mls @ 2 mls/min IV ONCE PRN; Protocol PRN Reason: EtOH Withdrawal AWSS Score 10 & above Thiamine HCl 500 mg/ Sodium (Chloride) 55 mls @ 220 mls/hr IV Q8H MAYRA Stop: 11/20/21 00:29 Last Infusion: 11/19/21 02:33 Dose: Infused Octreotide Acetate 500 mcg/ (Dextrose) 100.5 mls @ 10.05 mls/hr IV .Q10H MAYRA Stop: 12/17/21 10:14 Last Admin: 11/19/21 01:57 Dose: 50 mcg/hr, 10.1 mls/hr Albumin Human (Albumin 25% 100 Ml) 25 gm in 100 mls @ 50 mls/hr IV Q6H [facility] Stop: 11/20/21 13:00 Last Admin: 11/19/21 06:44 Dose: 50 mls/hr Acetylcysteine 10,000 mg/ (Dextrose) 1,050 mls @ 65.625 mls/hr IV Q16H [facility]; Protocol Stop: 11/19/21 18:59 Last Admin: 11/19/21 03:20 Dose: 65.6 mls/hr Potassium Chloride (K Maycol / Wtr) 10 meq in 100 mls @ 100 mls/hr IV Q1H [facility] Stop: 11/19/21 10:29 Last Admin: 11/19/21 07:56 Dose: 100 mls/hr Insulin Aspart (Insulin Aspart Per Unit) 0 units SC ACHS [facility] Stop: 12/17/21 11:59 Last Admin: 11/18/21 20:50 Dose: 3 units Lorazepam (Lorazepam 1 Mg Tab) 1 mg PO Q4H PRN PRN Reason: anxiety, tremors Stop: 12/18/21 16:53 Last Admin: 11/18/21 17:52 Dose: 1 mg Miscellaneous (Carbohydrates For Hypoglycemia ) 15 - 30 gm PO UD PRN PRN Reason: Hypoglycemia Treatment Stop: 12/17/21 12:44 Pantoprazole Sodium (Pantoprazole 40 Mg Tab) 40 mg PO QAM [facility] Stop: 12/18/21 08:59 Last Admin: 11/18/21 09:41 Dose: 40 mg Prednisolone Sodium Phosphate (Prednisolone Sod Phosphate 15 Mg/5 Ml) 40 mg PO DAILY [facility] Stop: 12/18/21 09:59 Last Admin: 11/18/21 11:31 Dose: 40 mg Thiamine HCl (Thiamine Hcl 100 Mg Tab) 100 mg PO QAM [facility] Stop: 12/20/21 08:59
[2021-11-19] MEDS: LORazepam 1 MG TAB PO PRN ×3 (08:46→18:15)
[2021-11-19] MEDS: prednisoLONE sod phosphate 15 MG/5 ML PO SCH (08:46)
[2021-11-19] MEDS: PANTOprazole 40 MG TAB PO SCH (08:46)
[2021-11-19] MEDS: cefTRIAXone SODIUM 2,000 MG in DEXTROSE 5% 50 ML IV SCH (08:46)
[2021-11-19] MEDS: FOLIC ACID 1 MG TAB PO SCH (08:46)
[2021-11-19] MEDS ORDERED: FOLIC ACID 1 MG TAB PO SCH (09:00)
--- NOTE | 2021-11-19 09:59 | Nephrology Progress Note ---
Date of Service November 19, 2021 Assessment & Plan Admission and Anticipated Discharge Date Admission Date: November 16, 2021 Subjective Assessment & Plan (1) HEENA (acute kidney injury): Plan: 1) HEENA (acute kidney injury): Nonoliguric HEENA w/ presenting POC creatinine 3. baseline creatinine 1.2 as recently as late last year. not a liver transplant candidate ( not confirmed yet though) and therefore not a dialysis candidate should the need arise. Hepatorenal syndrome certainly on differential but ischemic ATN also a concern,> treat HRS while -Add Midodrine 5 tid. ; already on octreotide w/ albumin -BMP as below -Renally dose Abx. (2) Disorder of fluid or electrolyte: Replete electrolyte as needed , K still low though Needs more K Poor prognosis given constant HYponatremia Waiting transfer to [facility] or [place] (2) Disorder of fluid or electrolyte: Subjective Not much changed clinically continues to be critically ill. Big family at bedside. Did talk a bit though and answered some questions Chest CTA HEENt--Icterus +++ CV--RRR Abd--Ascites ext--3+ edema. Review of Systems Review of Systems: Unobtainable due to cognitive status Results & Data ([facility]) Vital Signs (Past 12 Hours) Vital Signs Temp Pulse Pulse Resp BP BP Pulse Ox 11/19/21 08:00 36.8 C 11/19/21 08:00 114 H 30 H 93 11/19/21 07:46 129/81 11/19/21 07:46 110 H 25 H 93 11/19/21 07:00 109 H 26 H 93 11/19/21 04:00 36.5 C 96 H 16 119/76 95 11/19/21 00:00 105 H 11/18/21 23:00 36.8 C 103 H 25 H 103/71 94 O2 Del Method O2 Flow Rate 11/19/21 08:00 11/19/21 08:00 11/19/21 07:46 11/19/21 07:46 11/19/21 07:00 11/19/21 04:00 Nasal Cannula 4 11/19/21 00:00 11/18/21 23:00 Nasal Cannula 4
[2021-11-19] MEDS: POTASSIUM CHLORIDE PWD 20 MEQ PACK PO SCH ×2 (10:59→20:12)
[2021-11-19] MEDS: MIDODRINE HCL 2.5 MG TAB PO SCH ×2 (10:59→16:31)
[2021-11-19] MEDS ORDERED: POTASSIUM CHLORIDE CRTAB 20 MEQ TABCR PO STA ×2 (13:55→18:29)
--- NOTE | 2021-11-19 14:41 | XRay Report ---
XR chest 1V portable HISTORY: hypoxia, dyspnea COMPARISON: Chest 11/17/2021. FINDINGS: No pneumothorax. There are trace bilateral pleural effusions. The heart is mildly enlarged. There are patchy bibasilar densities which have progressed. There is mild antral pulmonary vascular congestion without overt edema. A right jugular central venous catheter terminates at the SVC. There are poststernotomy changes. There is an old, healed right clavicle fracture. IMPRESSION: 1. Cardiomegaly with mild central pulmonary vascular congestion and trace bilateral pleural effusions . This has progressed in the interval. 2. Patchy bibasilar densities may represent atelectasis or pneumonia. ACT 112: Negative or not required by law. Electronically signed by: Rasta Graham M.D. 11/19/2021 2:40 PM
[2021-11-19] MEDS ORDERED: FUROSEMIDE INJ 20 MG/2 ML VIAL IV ONE ×2 (14:51→18:28)
[2021-11-19 16:35] LABS: INR 1.7 (0.9-1.1); Prothrombin Time 17.7 Seconds (9.0-12.0)
[2021-11-20] MEDS ORDERED: THIAMINE HCL 200 MG in SODIUM CHLORIDE 0.9% 50 ML IV SCH (01:00)
[2021-11-20] MEDS: LORazepam 2 MG in SYRINGE 1 ML IV PRN ×6 (01:57→22:57)
[2021-11-20] MEDS: ALBUMIN 25% 100 mL 25 GM/100 ML VIAL IV SCH ×2 (01:57→06:27)
[2021-11-20 03:09] LABS: Base Excess VBG -6.6 mEq/L; HCO3 VBG 18 mmol/L; PCO2 VBG 34 mmHg (38-50); PO2 VBG 44 mmHg; pH VBG 7.34 (7.36-7.41)
[2021-11-20 05:10] LABS: Hematocrit (blood only) 23.2 % (40.1-51.0); Hemoglobin 8.3 g/dl (14.0-18.0); Mean Corpuscular Hemoglobin 36.6 pg (25.0-34.0); Mean Corpuscular Hgb Conc 35.8 g/dL (32.0-36.0); Mean Corpuscular Volume 102.2 fL (80.0-100.0); Mean Platelet Volume 11.8 fL (9.4-12.4); Nucleated RBC % (auto) 0.7 %; Platelet Count 86 K/uL (130-400); RDW Coefficient of Variation 18.1 % (11.5-14.5); RDW Standard Deviation 59.5 fL (36.4-46.3); Red Blood Count 2.27 M/uL (4.63-6.08); White Blood Count 14.42 K/ul (4.8-10.8)
[2021-11-20 05:17] LABS: INR 1.6 (0.9-1.1); Prothrombin Time 16.7 Seconds (9.0-12.0)
[2021-11-20 05:43] LABS: Alanine Aminotransferase 48 U/L (7-52); Albumin Globulin Ratio 2.5 (0.9-2); Anion Gap 18 (3-11); Aspartate Aminotransferase 56 U/L (13-39); Bilirubin,Total 41.6 mg/dl (0.2-1.0); Calcium 7.9 mg/dl (8.5-10.1); Carbon Dioxide 18 mmol/L (21-32); Chloride 91 mmol/L (98-107); Globulin 1.6 gm/dl (2.5-4.0); Glucose 139 mg/dl (70-99(Fasting)); Phosphorus 2.7 mg/dl (2.5-4.9); Potassium 3.5 mmol/L (3.5-5.1); Sodium 127 mmol/L (136-145); Total Protein 5.6 gm/dl (6.0-8.3)
[2021-11-20] MEDS ORDERED: LACTULOSE SYRUP 20 GM/30 ML UDC PO ONE (07:09)
[2021-11-20] MEDS ORDERED: METOPROLOL TARTRATE 1 MG/ML VIAL IV STA ×2 (07:10→07:11)
[2021-11-20] MEDS ORDERED: FUROSEMIDE INJ 20 MG/2 ML VIAL IV ONE ×2 (07:12→17:35)
[2021-11-20] MEDS: INSULIN ASPART PER UNIT SC SCH ×2 (07:46→12:42)
[2021-11-20] MEDS: MIDODRINE HCL 2.5 MG TAB PO SCH (07:48)
[2021-11-20] MEDS: FOLIC ACID 1 MG TAB PO SCH (07:49)
[2021-11-20] MEDS: PANTOprazole 40 MG TAB PO SCH (07:49)
[2021-11-20] MEDS: prednisoLONE sod phosphate 15 MG/5 ML PO SCH (07:50)
[2021-11-20] MEDS: OCTREOTIDE ACETATE 500 MCG in DEXTROSE 5% 100 ML IV SCH (07:55)
[2021-11-20] MEDS: cefTRIAXone SODIUM 2,000 MG in DEXTROSE 5% 50 ML IV SCH (07:56)
[2021-11-20] MEDS: POTASSIUM CHLORIDE PWD 20 MEQ PACK PO SCH (07:56)
[2021-11-20] MEDS ORDERED: POTASSIUM CHLORIDE CRTAB 20 MEQ TABCR PO STA (08:23)
[2021-11-20] MEDS ORDERED: POTASSIUM CHLORIDE 20 MEQ/15 ML UDC PO STA (08:45)
[2021-11-20] MEDS ORDERED: THIAMINE HCL 100 MG TAB PO SCH (09:00)
[2021-11-20] MEDS ORDERED: POTASSIUM CHLORIDE / WTR 20 MEQ/100 ML PLCT IV ONE (09:00)
--- NOTE | 2021-11-20 10:20 | Hospitalist Progress Note ---
Date of Service November 20, 2021 Assessment & Plan (1) Acute alcoholic hepatitis: (2) Alcohol abuse: (3) Hypotension: (4) Jaundice due to hepatitis: Plan: Comfort care measures Met with multiple family members today (11/20) to discuss pt's clinical course and goals of care. Unfortunately patient is not a candidate for transfer for liver transplant. Overnight heart rate increased, and oxygen requirement also increased. Mental status this morning worsened, patient confused. Per nursing staff, patient exhibiting signs of alcohol withdrawal. Per multiple family members, patient would not wish to be on the ventilator. They also pointed to patient's son to be the primary decision maker. Per patient's son, will change patient's status to comfort care. All the family members present in agreement. Will continue IV Ativan for anxiety, agitation and signs of alcohol withdrawal Per family, patient has allergy to morphine, was nauseous after receiving it after heart surgery. They do not believe this was due to anesthesia, and believe this was due to morphine. Therefore will order IV Dilaudid for pain and discomfort as needed. A 51-year-old male with alcohol abuse presents with jaundice and also hypotension and tachycardia. 1. Possible sepsis with hypotension, tachycardia. Started Levophed drip on admission, currently off pressors Cefepime on admission -> now on ceftriaxone (possible SBP) Follow the cultures.Procalcitonin 1.79 Will DC antibiotics - as pt now comfort care 2. Possible alcoholic hepatitis, liver failure Total bilirubin 33.8, direct bilirubin 20.7, AST 156, ALT 89. Recently was taking Tylenol for his back pain. ICU started him on steroids and also N acetylcysteine. We will follow the repeat labs. GI consulted - cont. 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 The Z line was irregular. There was mild portal gastropathy in the fundus and body. There was a small amount of bilious fluid in the stomach. The antrum was normal. The duodenum was normal. There was contact oozing. Per GI: alc hep. His Na is 127, Bili 39 --> 33, INR 1.8--> 2, creat 3.0 His DF is 76, MELD is 37. Blood and urine cx pending. He has been receiving NAC and solumederol for alc hep; He is on albumin, octreotide, and now midodrine with borderline uop. RECS: Diet as tolerated, follow hgb. Once daily oral PPI. Cont NAC protocol, prednisone for alc hep. Lille score at day 4. US with doppler obtained IMPRESSION: Hepatic steatosis resulting in suboptimal evaluation portal and hepatic veins. However, no evidence for portal or hepatic vein thrombosis. consider MRCP Елена, follow uop. Cont midodrine to support MAP, octreotide, and albumin infusions. Nephrology consulted and following. Echo obtained Mild concentric LVH. LV wall motion is normal. LVEF 55 to 60%. RV is normal in size and function. Mild tricuspid regurg. Interatrial septum is intact with no evidence for an atrial septal defect. There is no evidence of [id number]-ss-[id number] shunt as documented with the injected agitated saline contrast. Prognosis guarded. He has been [place] for [place] [facility] [place]. Echavarria (GI) spoke to Dr. Cunningham at [facility] for possible transfer (on 11/17) - Phone number for transfer center [phone]. 11/18 - Requested records, CD with images and echo to be sent to [facility]. 11/19 - MELD score continues to be elevated (38). Discussed with [facility] physicians, in brief, due to patient's heart condition and alcohol use, patient not a candidate for transfer for liver transplant. 3. Alcoholism. Ativan protocol and IV thiamine. Received banana bag. - Will cont. ativan as above 4. Possible GI bleed. The patient on Protonix. Received IV vitamin K, as INR is 1.8 on admission. GI consulted. Underwent EGD as above. Now pt comfort care. 5. Hyponatremia, sodium 126 on admission. Probably from his alcoholism. Nephrology consulted. 6. Acute kidney injury. Possible hepatorenal syndrome with creatinine 3. Follow repeat labs. Nephrology consulted. Pt on octreotide, albumin. Now comfort measures. 7. History of atrial fibrillation s/p MAZE. On admission hypotensive, on Levophed drip -> now on midodrine. He is taking only Coreg, not taking any blood thinner currently. Developed Afib w/ RVR. Current Hr 130s. Received iv metoprolol, now comfort care measures. DNR/DNI COMFORT CARE Admission and Anticipated Discharge Date Admission Date: November 16, 2021 Subjective Patient seen in follow-up of jaundice, weakness, treated for alcoholic hepatitis, liver failure On admission found to have bilirubin of 39/33, creatinine of 3 Unfortunately patient not a candidate for transfer for liver transplant. Overnight, patient's heart rate increased, oxygen requirement increased, and patient became more confused. Per nursing staff, patient exhibits signs of withdrawal. Today patient cannot communicate with me very much. Cannot provide any meaningful history at this time. Confused, patient also examined at the presence of patient's girlfriend Cindy. Unfortunately his mental status does not seem to improve with familiar people at the bedside. Discussed with multiple family members his clinical course and goals of care. CODE STATUS changed to DNR/DNI. Patient to be changed to comfort care measures. Review of Systems Review of Systems: Unobtainable due to cognitive status Physical Exam Physical Exam: GENERAL: drowsy, obese M, confused, on suppl. O2 HEENT: NC/AT. +scleral icterus present. Pupils equal, round and reactive to light. Oral mucosa moist. NECK: R IJ placed (bleeding at the site seems resolved) CARDIOVASCULAR: + tachycardic RESPIRATORY : Normal AP diameter. No accessory muscle use.+ crackles, using 6L of suppl. O2 ABDOMEN: tense and distended. denies discomfort on palpation. Bowel sounds present. NEURO: drowsy and confused. No facial droop. Moves extremities. EXTREMITIES: 1+ LE edema present. SKIN: jaundiced Results & Data Results & Data ([facility]) Vital Signs (Past 12 Hours) Vital Signs Temp Pulse Pulse Resp BP BP Pulse Ox 11/20/21 07:20 136 H 117/72 11/20/21 06:47 136 H 26 H 117/72 94 11/20/21 03:38 36.4 C L 114 H 26 H 126/86 94 11/20/21 02:43 37 C 112 H 28 H 122/84 93 11/20/21 00:00 103 H 11/19/21 23:42 36.4 C L 105 H 26 H 134/82 93 O2 Del Method O2 Flow Rate 11/20/21 07:20 11/20/21 06:47 Oxymask 6 11/20/21 03:38 Oxymask 8 11/20/21 02:43 Oxymask 6 11/20/21 00:00 11/19/21 23:42 Oxymask 6 Laboratory Results 11/20/21 11/20/21 11/20/21 Range/Units 09:06 07:42 07:38 WBC (4.8-10.8) K/ul RBC (4.63-6.08) M/uL Hgb (14.0-18.0) g/dl Hct (40.1-51.0) % MCV (80.0-100.0) fL MCH (25.0-34.0) pg MCHC (32.0-36.0) g/dL RDW Std Deviation (36.4-46.3) fL RDW Coeff of Yonatan (11.5-14.5) % Plt Count (130-400) K/uL MPV (9.4-12.4) fL Absolute Nucleated RBC (0-0) K/uL Nucleated RBC % (auto) % PT (9.0-12.0) Seconds INR (0.9-1.1) VBG pH (7.36-7.41) VBG pCO2 (38-50) mmHg VBG pO2 mmHg VBG HCO3 mmol/L VBG O2 Saturation % VBG Base Excess mEq/L Sodium (136-145) mmol/L Potassium (3.5-5.1) mmol/L Chloride (98-107) mmol/L Carbon Dioxide (21-32) mmol/L Anion Gap (3-11) BUN Creatinine POC Creatinine (0.6-1.3) mg/dl Est Cr Clr Drug Dosing Est GFR ( Amer) Est GFR (Non-Af Amer) BUN/Creatinine Ratio Glucose (70-99(Fasting)) mg/dl POC Glucose 151 H (70-99) mg/dl Calcium (8.5-10.1) mg/dl Phosphorus (2.5-4.9) mg/dl Magnesium Total Bilirubin (0.2-1.0) mg/dl AST (13-39) U/L ALT (7-52) U/L Alkaline Phosphatase Ammonia TNP Total Protein (6.0-8.3) gm/dl Albumin (3.4-5.0) gm/dl Globulin (2.5-4.0) gm/dl Albumin/Globulin Ratio (0.9-2) Ref Lab Test Result Pending 11/20/21 11/20/21 11/20/21 Range/Units 06:23 04:40 04:40 WBC (4.8-10.8) K/ul RBC (4.63-6.08) M/uL Hgb (14.0-18.0) g/dl Hct (40.1-51.0) % MCV (80.0-100.0) fL MCH (25.0-34.0) pg MCHC (32.0-36.0) g/dL RDW Std Deviation (36.4-46.3) fL RDW Coeff of Yonatan (11.5-14.5) % Plt Count (130-400) K/uL MPV (9.4-12.4) fL Absolute Nucleated RBC (0-0) K/uL Nucleated RBC % (auto) % PT (9.0-12.0) Seconds INR (0.9-1.1) VBG pH (7.36-7.41) VBG pCO2 (38-50) mmHg VBG pO2 mmHg VBG HCO3 mmol/L VBG O2 Saturation % VBG Base Excess mEq/L Sodium 127 L (136-145) mmol/L Potassium 3.5 D (3.5-5.1) mmol/L Chloride 91 L (98-107) mmol/L Carbon Dioxide 18 L (21-32) mmol/L Anion Gap 18 H (3-11) BUN TNP Creatinine TNP POC Creatinine 3.3 H (0.6-1.3) mg/dl Est Cr Clr Drug Dosing TNP Est GFR ( Amer) TNP Est GFR (Non-Af Amer) TNP BUN/Creatinine Ratio TNP Glucose 139 H (70-99(Fasting)) mg/dl POC Glucose (70-99) mg/dl Calcium 7.9 L (8.5-10.1) mg/dl Phosphorus 2.7 (2.5-4.9) mg/dl Magnesium TNP Total Bilirubin 41.6 H (0.2-1.0) mg/dl AST 56 H (13-39) U/L ALT 48 (7-52) U/L Alkaline Phosphatase TNP Ammonia Total Protein 5.6 L (6.0-8.3) gm/dl Albumin 4.0 (3.4-5.0) gm/dl Globulin 1.6 L (2.5-4.0) gm/dl Albumin/Globulin Ratio 2.5 H (0.9-2) Ref Lab Test Result Pending 11/20/21 11/20/21 11/20/21 Range/Units 04:40 04:40 03:01 WBC 14.42 H (4.8-10.8) K/ul RBC 2.27 L (4.63-6.08) M/uL Hgb 8.3 L (14.0-18.0) g/dl Hct 23.2 L (40.1-51.0) % MCV 102.2 H (80.0-100.0) fL MCH 36.6 H (25.0-34.0) pg MCHC 35.8 (32.0-36.0) g/dL RDW Std Deviation 59.5 H (36.4-46.3) fL RDW Coeff of Yonatan 18.1 H (11.5-14.5) % Plt Count 86 L (130-400) K/uL MPV 11.8 (9.4-12.4) fL Absolute Nucleated RBC 0.10 H (0-0) K/uL Nucleated RBC % (auto) 0.7 % PT 16.7 H (9.0-12.0) Seconds INR 1.6 H (0.9-1.1) VBG pH 7.34 L (7.36-7.41) VBG pCO2 34 L (38-50) mmHg VBG pO2 44 mmHg VBG HCO3 18 mmol/L VBG O2 Saturation 74.0 % VBG Base Excess -6.6 mEq/L Sodium (136-145) mmol/L Potassium (3.5-5.1) mmol/L Chloride (98-107) mmol/L Carbon Dioxide (21-32) mmol/L Anion Gap (3-11) BUN Creatinine POC Creatinine (0.6-1.3) mg/dl Est Cr Clr Drug Dosing Est GFR ( Amer) Est GFR (Non-Af Amer) BUN/Creatinine Ratio Glucose (70-99(Fasting)) mg/dl POC Glucose (70-99) mg/dl Calcium (8.5-10.1) mg/dl Phosphorus (2.5-4.9) mg/dl Magnesium Total Bilirubin (0.2-1.0) mg/dl AST (13-39) U/L ALT (7-52) U/L Alkaline Phosphatase Ammonia Total Protein (6.0-8.3) gm/dl Albumin (3.4-5.0) gm/dl Globulin (2.5-4.0) gm/dl Albumin/Globulin Ratio (0.9-2) Ref Lab Test Result 11/19/21 11/19/21 11/19/21 Range/Units 19:47 16:03 15:59 WBC (4.8-10.8) K/ul RBC (4.63-6.08) M/uL Hgb (14.0-18.0) g/dl Hct (40.1-51.0) % MCV (80.0-100.0) fL MCH (25.0-34.0) pg MCHC (32.0-36.0) g/dL RDW Std Deviation (36.4-46.3) fL RDW Coeff of Yonatan (11.5-14.5) % Plt Count (130-400) K/uL MPV (9.4-12.4) fL Absolute Nucleated RBC (0-0) K/uL Nucleated RBC % (auto) % PT 17.7 H (9.0-12.0) Seconds INR 1.7 H (0.9-1.1) VBG pH (7.36-7.41) VBG pCO2 (38-50) mmHg VBG pO2 mmHg VBG HCO3 mmol/L VBG O2 Saturation % VBG Base Excess mEq/L Sodium (136-145) mmol/L Potassium (3.5-5.1) mmol/L Chloride (98-107) mmol/L Carbon Dioxide (21-32) mmol/L Anion Gap (3-11) BUN Creatinine POC Creatinine (0.6-1.3) mg/dl Est Cr Clr Drug Dosing Est GFR ( Amer) Est GFR (Non-Af Amer) BUN/Creatinine Ratio Glucose (70-99(Fasting)) mg/dl POC Glucose 223 H 232 H (70-99) mg/dl Calcium (8.5-10.1) mg/dl Phosphorus (2.5-4.9) mg/dl Magnesium Total Bilirubin (0.2-1.0) mg/dl AST (13-39) U/L ALT (7-52) U/L Alkaline Phosphatase Ammonia Total Protein (6.0-8.3) gm/dl Albumin (3.4-5.0) gm/dl Globulin (2.5-4.0) gm/dl Albumin/Globulin Ratio (0.9-2) Ref Lab Test Result 11/19/21 11/19/21 Range/Units 11:46 04:52 WBC (4.8-10.8) K/ul RBC (4.63-6.08) M/uL Hgb (14.0-18.0) g/dl Hct (40.1-51.0) % MCV (80.0-100.0) fL MCH (25.0-34.0) pg MCHC (32.0-36.0) g/dL RDW Std Deviation (36.4-46.3) fL RDW Coeff of Yonatan (11.5-14.5) % Plt Count (130-400) K/uL MPV (9.4-12.4) fL Absolute Nucleated RBC (0-0) K/uL Nucleated RBC % (auto) % PT (9.0-12.0) Seconds INR (0.9-1.1) VBG pH (7.36-7.41) VBG pCO2 (38-50) mmHg VBG pO2 mmHg VBG HCO3 mmol/L VBG O2 Saturation % VBG Base Excess mEq/L Sodium (136-145) mmol/L Potassium (3.5-5.1) mmol/L Chloride (98-107) mmol/L Carbon Dioxide (21-32) mmol/L Anion Gap (3-11) BUN Creatinine POC Creatinine (0.6-1.3) mg/dl Est Cr Clr Drug Dosing Est GFR ( Amer) Est GFR (Non-Af Amer) BUN/Creatinine Ratio Glucose (70-99(Fasting)) mg/dl POC Glucose 195 H (70-99) mg/dl Calcium (8.5-10.1) mg/dl Phosphorus (2.5-4.9) mg/dl Magnesium Total Bilirubin (0.2-1.0) mg/dl AST (13-39) U/L ALT (7-52) U/L Alkaline Phosphatase Ammonia Total Protein (6.0-8.3) gm/dl Albumin (3.4-5.0) gm/dl Globulin (2.5-4.0) gm/dl Albumin/Globulin Ratio (0.9-2) Ref Lab Test Result Medications Administered Current Inpatient Medications Dextrose (Dextrose 50% 50 Ml Syringe) 25 - 50 ml IV UD PRN; Protocol PRN Reason: Hypoglycemia Protocol Stop: 12/17/21 12:44 Folic Acid (Folic Acid 1 Mg Tab) 1 mg PO QAM MAYRA Stop: 12/18/21 09:59 Last Admin: 11/20/21 07:49 Dose: 1 mg Glucagon (Glucagon For Inj 1 Mg Vial) 1 mg IM UD PRN; Protocol PRN Reason: Hypoglycemia Protocol Stop: 12/17/21 12:44 Glucose (Glucose 40% Gel 15 Gm Tube) 15 - 30 gm PO UD PRN; Protocol PRN Reason: Hypoglycemia Protocol Stop: 12/17/21 12:44 Glucose (Glucose 10 Tab/Tube) 4 - 8 tab PO UD PRN; Protocol PRN Reason: Hypoglycemia Protocol Stop: 12/17/21 12:44 Hydromorphone HCl (Hydromorphone Inj 0.5 Mg/0.5 Ml Syr) 0.25 mg IV Q3H PRN PRN Reason: Pain, discomfort Stop: 12/04/21 10:46 Ceftriaxone Sodium 2,000 mg/ (Dextrose) 70 mls @ 100 mls/hr IV Q24H MAYRA; Protocol Stop: 11/22/21 08:59 Last Infusion: 11/20/21 08:43 Dose: Infused Lorazepam 1 mg/ Syringe 1 mls @ 2 mls/min IV UD PRN; Protocol PRN Reason: EtOH Withdrawal AWSS Score 6,7 Stop: 12/17/21 00:21 Last Admin: 11/19/21 23:49 Dose: 2 mls/min Lorazepam 2 mg/ Syringe 2 mls @ 2 mls/min IV UD PRN; Protocol PRN Reason: EtOH Withdrawal AWSS Score 8,9 Stop: 12/17/21 00:21 Last Admin: 11/20/21 03:59 Dose: 2 mls/min Lorazepam 3 mg/ Syringe 3 mls @ 2 mls/min IV ONCE PRN; Protocol PRN Reason: EtOH Withdrawal AWSS Score 10 & above Octreotide Acetate 500 mcg/ (Dextrose) 100.5 mls @ 10.05 mls/hr IV .Q10H [facility] Stop: 12/17/21 10:14 Last Admin: 11/20/21 07:55 Dose: 50 mcg/hr, 10.1 mls/hr Albumin Human (Albumin 25% 100 Ml) 25 gm in 100 mls @ 50 mls/hr IV Q6H [facility] Stop: 11/20/21 13:00 Last Infusion: 11/20/21 08:33 Dose: Infused Lorazepam 2 mg/ Syringe 1.25 mls @ 2 mls/min IV Q2H PRN PRN Reason: Anxiety, agitation Stop: 12/20/21 10:35 Insulin Aspart (Insulin Aspart Per Unit) 0 units SC ACHS [facility] Stop: 12/17/21 11:59 Last Admin: 11/20/21 07:46 Dose: Not Given Lorazepam (Lorazepam 1 Mg Tab) 1 mg PO Q4H PRN PRN Reason: anxiety, tremors Stop: 12/18/21 16:53 Last Admin: 11/19/21 18:15 Dose: 1 mg Lorazepam (Lorazepam 1 Mg Tab) 2 mg PO Q2H PRN PRN Reason: Anxiety/Agitation Stop: 12/20/21 10:41 Midodrine (Midodrine Hcl 2.5 Mg Tab) 5 mg PO TID@0800,1200,1700 [facility] Stop: 12/19/21 11:59 Last Admin: 11/20/21 07:48 Dose: 5 mg Miscellaneous (Carbohydrates For Hypoglycemia ) 15 - 30 gm PO UD PRN PRN Reason: Hypoglycemia Treatment Stop: 12/17/21 12:44 Ondansetron HCl (Ondansetron Inj 2 Mg/Ml 2 Ml Vial) 4 mg IV Q4H PRN PRN Reason: Nausea &/or Vomiting Stop: 12/20/21 10:41 Ondansetron HCl (Ondansetron 4 Mg Od Tab) 4 mg SL Q4H PRN PRN Reason: Nausea &/or Vomiting Stop: 12/20/21 10:41 Pantoprazole Sodium (Pantoprazole 40 Mg Tab) 40 mg PO QAM [facility] Stop: 12/18/21 08:59 Last Admin: 11/20/21 07:49 Dose: 40 mg Potassium Chloride (Potassium Chloride Pwd 20 Meq Pack) 20 meq PO BID [facility] Stop: 12/19/21 09:59 Last Admin: 11/20/21 07:56 Dose: Not Given Prednisolone Sodium Phosphate (Prednisolone Sod Phosphate 15 Mg/5 Ml) 40 mg PO DAILY MAYRA Stop: 12/18/21 09:59 Last Admin: 11/20/21 07:50 Dose: 40 mg Thiamine HCl (Thiamine Hcl 100 Mg Tab) 100 mg PO QAM MAYRA Stop: 12/20/21 08:59 Last Admin: 11/20/21 07:49 Dose: 100 mg
--- NOTE | 2021-11-20 10:27 | Hospitalist Progress Note ---
Date of Service November 20, 2021 Assessment & Plan Admission and Anticipated Discharge Date Admission Date: November 16, 2021 Subjective Met with multiple family members (pt's mother, girlfriend, son, daughter, stepfather, [id number]) - today to discuss pt's clinical course and goals of care. Unfortunately patient is not a candidate for transfer for liver transplant. Overnight heart rate increased, and oxygen requirement also increased. Mental status this morning worsened, patient confused. Per multiple family members, patient would not wish to be on the ventilator. They also pointed to patient's son to be the primary decision maker. Per patient's son, will change patient's status to comfort care. All the family members present in agreement. MD aJrad Results & Data Results & Data ([facility]) Vital Signs (Past 12 Hours) Vital Signs Temp Pulse Pulse Resp BP BP Pulse Ox 11/20/21 07:20 136 H 117/72 11/20/21 06:47 136 H 26 H 117/72 94 11/20/21 03:38 36.4 C L 114 H 26 H 126/86 94 11/20/21 02:43 37 C 112 H 28 H 122/84 93 11/20/21 00:00 103 H 11/19/21 23:42 36.4 C L 105 H 26 H 134/82 93 O2 Del Method O2 Flow Rate 11/20/21 07:20 11/20/21 06:47 Oxymask 6 11/20/21 03:38 Oxymask 8 11/20/21 02:43 Oxymask 6 11/20/21 00:00 11/19/21 23:42 Oxymask 6
[2021-11-20] MEDS ORDERED: LORazepam 2 MG in SYRINGE 0.25 ML IV PRN (10:36)
[2021-11-20] MEDS ORDERED: ONDANSETRON 4 MG OD TAB SL PRN (10:42)
[2021-11-20] MEDS ORDERED: ONDANSETRON INJ 2 MG/ML 2 ML VIAL IV PRN (10:42)
[2021-11-20] MEDS ORDERED: LORazepam 1 MG TAB PO PRN (10:42)
[2021-11-20] MEDS: HYDROmorphone INJ 0.5 MG/0.5 ML SYR IV PRN ×2 (16:08→20:38)
[2021-11-20] MEDS: GLYCOPYRROLATE 0.2 MG/ML VIAL IV PRN ×2 (18:03→22:15)
[2021-11-20] MEDS ORDERED: HYDROmorphone INJ 0.5 MG/0.5 ML SYR IV STA (22:27)
[2021-11-21] MEDS: LORazepam 2 MG in SYRINGE 1 ML IV PRN ×2 (02:46→08:15)
[2021-11-21] MEDS: GLYCOPYRROLATE 0.2 MG/ML VIAL IV PRN (02:46)
--- NOTE | 2021-11-21 09:08 | Hospitalist Progress Note ---
Date of Service November 21, 2021 Assessment & Plan (1) Acute alcoholic hepatitis: (2) Alcohol abuse: (3) Hypotension: (4) Jaundice due to hepatitis: Plan: Comfort care measures Met with multiple family members on (11/20) to discuss pt's clinical course and goals of care. Unfortunately patient is not a candidate for transfer for liver transplant. Overnight heart rate increased, and oxygen requirement also increased. Mental s tatus worsened, patient confused. Per nursing staff, patient exhibiting signs of alcohol withdrawal. Per multiple family members, patient would not wish to be on the ventilator. They also pointed to patient's son to be the primary decision maker. Per patient's son, changed patient's status to comfort care. All the family members present in agreement. Continue IV Ativan for anxiety, agitation and signs of alcohol withdrawal Per family, patient has allergy to morphine, was nauseous after receiving it after heart surgery. They do not believe this was due to anesthesia, and believe this was due to morphine. Therefore ordered IV Dilaudid for pain and discomfort as needed. Appreciate palliative medicine input A 51-year-old male with alcohol abuse presents with jaundice and also hypotension and tachycardia. 1. Possible sepsis with hypotension, tachycardia. Started Levophed drip on admission, currently off pressors Cefepime on admission -> now on ceftriaxone (possible SBP) Follow the cultures.Procalcitonin 1.79 Will DC antibiotics - as pt now comfort care 2. Possible alcoholic hepatitis, liver failure Total bilirubin 33.8, direct bilirubin 20.7, AST 156, ALT 89. Recently was taking Tylenol for his back pain. ICU started him on steroids and also N acetylcysteine. We will follow the repeat labs. GI consulted - cont. 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 The Z line was irregular. There was mild portal gastropathy in the fundus and body. There was a small amount of bilious fluid in the stomach. The antrum was normal. The duodenum was normal. There was contact oozing. Per GI: alc hep. His Na is 127, Bili 39 --> 33, INR 1.8--> 2, creat 3.0 His DF is 76, MELD is 37. Blood and urine cx pending. He has been receiving NAC and solumederol for alc hep; He is on albumin, octreotide, and now midodrine with borderline uop. RECS: Diet as tolerated, follow hgb. Once daily oral PPI. Cont NAC protocol, prednisone for alc hep. Lille score at day 4. US with doppler obtained IMPRESSION: Hepatic steatosis resulting in suboptimal evaluation portal and hepatic veins. However, no evidence for portal or hepatic vein thrombosis. consider MRCP Елена, follow uop. Cont midodrine to support MAP, octreotide, and albumin infusions. Nephrology consulted and following. Echo obtained Mild concentric LVH. LV wall motion is normal. LVEF 55 to 60%. RV is normal in size and function. Mild tricuspid regurg. Interatrial septum is intact with no evidence for an atrial septal defect. There is no evidence of [id number] shunt as documented with the injected agitated saline contrast. Prognosis guarded. [place] been [place] [facility] [place] Echavarria (GI) spoke to Dr. Raul raphael at [facility] for possible transfer (on 11/17) - Phone number for transfer center [phone]. 11/18 - Requested records, CD with images and echo to be sent to [facility]. 11/19 - MELD score continues to be elevated (38). Discussed with [facility] physicians, in brief, due to patient's heart condition and alcohol use, patient not a candidate for transfer for liver transplant. 3. Alcoholism. Ativan protocol and IV thiamine. Received banana bag. - Will cont. ativan as above 4. Possible GI bleed. The patient on Protonix. Received IV vitamin K, as INR is 1.8 on admission. GI consulted. Underwent EGD as above. Now pt comfort care. 5. Hyponatremia, sodium 126 on admission. Probably from his alcoholism. Nephrology consulted. 6. Acute kidney injury. Possible hepatorenal syndrome with creatinine 3. Follow repeat labs. Nephrology consulted. Pt on octreotide, albumin. Now comfort measures. 7. History of atrial fibrillation s/p MAZE. On admission hypotensive, on Levophed drip -> now on midodrine. He is taking only Coreg, not taking any blood thinner currently. Developed Afib w/ RVR. Current Hr 130s. Received iv metoprolol, now comfort care measures. DNR/DNI COMFORT CARE Admission and Anticipated Discharge Date Admission Date: November 16, 2021 Subjective Patient seen in follow-up of jaundice, weakness, treated for alcoholic hepatitis, liver failure On admission found to have bilirubin of 39/33, creatinine of 3 Unfortunately patient not a candidate for transfer for liver transplant. Patient made comfort care yesterday, appreciate palliative medicine input. Patient is drowsy, however appears comfortable. Family at the bedside. Review of Systems Review of Systems: Unobtainable due to cognitive status Physical Exam Physical Exam: GENERAL: drowsy, obese M, on suppl. O2 HEENT: NC/AT. +scleral icterus present. NECK: R IJ placed (bleeding at the site resolved) CARDIOVASCULAR: + tachycardic RESPIRATORY : Normal AP diameter. No accessory muscle use.+ crackles, using suppl. O2 ABDOMEN: distended. NEURO: drowsy No facial droop. Occasionally moves extremities. EXTREMITIES: 1+ LE edema present. SKIN: jaundiced Results & Data Results & Data ([facility]) Vital Signs (Past 12 Hours) Vital Signs Temp Pulse Resp BP Pulse Ox O2 Del Method O2 Flow Rate 11/21/21 08:33 36.8 C 133 H 24 137/87 94 Oxymask 8 Medications Administered Current Inpatient Medications Glycopyrrolate (Glycopyrrolate 0.2 Mg/Ml Vial) 0.2 mg IV Q4H PRN PRN Reason: secretions, pulm. congestion Stop: 12/20/21 17:34 Last Admin: 11/21/21 02:46 Dose: 0.2 mg Hydromorphone HCl (Hydromorphone Inj 0.5 Mg/0.5 Ml Syr) 0.25 mg IV Q3H PRN PRN Reason: Pain, discomfort Stop: 12/04/21 10:46 Last Admin: 11/20/21 20:38 Dose: 0.25 mg Lorazepam 2 mg/ Syringe 2 mls @ 2 mls/min IV Q2H PRN PRN Reason: Anxiety, Agitation Stop: 12/20/21 12:51 Last Admin: 11/21/21 08:15 Dose: 2 mls/min Lorazepam (Lorazepam 1 Mg Tab) 2 mg PO Q2H PRN PRN Reason: Anxiety/Agitation Stop: 12/20/21 10:41 Ondansetron HCl (Ondansetron Inj 2 Mg/Ml 2 Ml Vial) 4 mg IV Q4H PRN PRN Reason: Nausea &/or Vomiting Stop: 12/20/21 10:41 Ondansetron HCl (Ondansetron 4 Mg Od Tab) 4 mg SL Q4H PRN PRN Reason: Nausea &/or Vomiting Stop: 12/20/21 10:41
[2021-11-21] MEDS: LORazepam 1 MG in SYRINGE 0.5 ML IV SCH ×4 (12:00→23:46)
--- NOTE | 2021-11-21 13:02 | Palliative Care Consultation ---
Date of Consultation November 21, 2021 Assessment & Plan (1) Agitation: with hepatic encephalopathy. Routine dosing of lorazepam. He does not appear to be having pain, though he had complained of back and rib pain on admission. Tolerating care per RN. Continue prn hydromorphone. Talked with family about s igns of pain including furrowed brow, muscle tension, moaning. (2) Palliative care encounter: Met with Terrell's family at bedside. His SO, mother, sister, son and daughter in law were present. We talked about signs of discomfort to watch for and options for relieving pain, dyspnea, agitation, secretions. They asked about what to expect. We talked about changes in respiration, decreased responsiveness, circulatory changes. Family asked about option to take him home with hospice care. We discussed role of hospice and care provided. At this time, I do not think that symptoms are adequately controlled for discharge. I am also concerned that he may not be stable enough for discharge and discussed this with family. They will talk together about how they feel about caring for him at home and we will monitor symptoms and status. He appears likely to within the next few days. History of Present Illness Reason for Consultation: comfort care Requesting Physician: Dr. Abraham Attending Physician: Carmine Abraham MD History of Present Illness 51 yo gentleman with history of alcohol abuse and afib who presented with jaundice, lower extremity edema and shortness of breath. He was found to have extensive hepatic failure with elevated transaminases and bilirubin currently at 41. CT showed hepatic steatosis with no evidence of biliary obstruction. He also has acute renal failure with creatinine of 3.3. He is not a candidate for transplant and has had increased confusion and progressive respiratory failure, currently on high flow O2. Family has decided that he would not want ventilator support or aggressive care and has opted for focus on comfort and symptom management. Allergies Allergy/AdvReac Type Severity Reaction Status Date / Time No Known Allergies Allergy Unverified 11/16/21 21:13 Home Medications Medication Instructions Recorded Confirmed Type carvedilol 12.5 mg tablet 12.5 mg PO DAILY 02/15/21 11/16/21 History omeprazole 20 mg capsule,delayed 20 mg PO DAILY 02/15/21 11/16/21 History release Patient History Medical History A-fib Acute alcoholic hepatitis Alcohol abuse Cardiomyopathy Hepatorenal syndrome History of cardioversion Hypotension Jaundice due to hepatitis No pertinent family history Sepsis Surgical History H/O maze procedure Social History Smoking Status: Never smoker Hx Alcohol Use: Yes Alcohol type: beer and hard liquor Alcohol type Comment: 1/5 of alcohol a day Hx Substance Use: No Preferred Language: Telugu Communication Ability: Effective Sleeve Tailor Required: No Beliefs That Will Affect Care: None marital status: Single Current Living Situation: Significant Other Feels Safe at Home: Yes Safety Concerns: Feels Safe At This Time Assistive Devices: None Review of Systems Review of Systems: Unobtainable due to reduced consciousness ESAS Pain by observation 0/3 Dyspnea by observation 0/3 Drowsiness 2/3 PPS 20% Physical Exam Constitutional: lethargic, opens eyes at times but no oriented ENMT: Mouth: + dry oral mucous membranes Respiratory: + uses accessory muscles Cardiovascular: anasarca Gastrointestinal (Abdomen): distended Skin: + jaundice Results & Data ([facility]) Vital Signs (Past 12 Hours) Vital Signs Temp Pulse Resp BP Pulse Ox O2 Del Method O2 Flow Rate 11/21/21 08:33 98.2 F 133 H 24 137/87 94 Oxymask 8 PG Care Time/CCT Total # of Minutes Spent Total Time Spent: 61 Total Time Spent with Patient: Total time spent is greater than 50% in coordination of care (as documented) at patient's floor/unit and/or counseling patient: symptom management, hospice, family education and support Coding Level of Care Code 75410 Initial Inpt Care Lvl 2 Diagnoses Agitation R45.1 Palliative care encounter Z51.5
[2021-11-22] MEDS: LORazepam 1 MG in SYRINGE 0.5 ML IV SCH ×6 (03:31→23:05)
[2021-11-22] MEDS ORDERED: THIAMINE HCL 100 MG in SYRINGE 9 ML IV SCH (09:00)
[2021-11-22] MEDS ORDERED: THIAMINE HCL 100 MG TAB PO SCH (09:00)
[2021-11-22] MEDS: HYDROmorphone INJ 0.5 MG/0.5 ML SYR IV PRN ×3 (11:20→20:43)
--- NOTE | 2021-11-22 12:14 | Palliative Care Progress Note ---
Date of Service November 22, 2021 Assessment & Plan (1) Agitation: Plan: with hepatic encephalopathy - continue routine lorazepam. He is showing some pain behaviors today. Asked RN to give prn hydromorphone and reposition. Will also add zyprexa prn. (2) Palliative care encounter: Plan: Talked with his son and daughter in law at bedside. We talked about what to expect. He asked about nutrition and hydration and we discussed risk of contributing to anasarca with very limited potential benefit. He does not feel that taking Terrell home with hospice would be an option for the family. Admission and Anticipated Discharge Date Admission Date: November 16, 2021 Subjective More restless today. Per his son, he does have occasional words but not really making sense. Terrell is restless, moans occasionally. No facial grimace Review of Systems Review of Systems: Unobtainable due to cognitive status ESAS Pain by observation 1/3 Dyspnea by observation 0/3 Nausea 0/3 Drowsiness 2/3 PPS 20% Physical Exam Constitutional: + uncomfortable restless Eyes: scleral icterus ENMT: Mouth: + dry oral mucous membranes Respiratory: brief apnea Cardiovascular: anasarca Gastrointestinal (Abdomen): distended Skin: + jaundice Neurologic: + obtunded PG Care Time/CCT Total # of Minutes Spent Total Time Spent: 25 Total Time Spent with Patient: Total time spent is greater than 50% in coordination of care (as documented) at patient's floor/unit and/or counseling patient: symptom management, family education and support Coding Level of Care Code 67302 Subseq Hosp Care Lvl 2 Diagnoses Agitation R45.1 Palliative care encounter Z51.5
--- NOTE | 2021-11-22 13:51 | Hospitalist Progress Note ---
Date of Service November 22, 2021 Assessment & Plan (1) Acute alcoholic hepatitis: (2) Alcohol abuse: (3) Hypotension: (4) Jaundice due to hepatitis: Plan: Comfort care measures Met with multiple family members on (11/20) to discuss pt's clinical course and goals of care. Unfortunately patient is not a candidate for transfer for liver transplant. Overnight heart rate increased, and oxygen requirement also increased. Mental s tatus worsened, patient confused. Per nursing staff, patient exhibiting signs of alcohol withdrawal. Per multiple family members, patient would not wish to be on the ventilator. They also pointed to patient's son to be the primary decision maker. Per patient's son, changed patient's status to comfort care. All the family members present in agreement. Continue IV Ativan for anxiety, agitation and signs of alcohol withdrawal Per family, patient has allergy to morphine, was nauseous after receiving it after heart surgery. They do not believe this was due to anesthesia, and believe this was due to morphine. Therefore ordered IV Dilaudid for pain and discomfort as needed. Appreciate palliative medicine input Patient is now receiving IV Ativan every 4 hours. IV Dilaudid as needed. G lycopyrrolate as needed. A 51-year-old male with alcohol abuse presents with jaundice and also hypotension and tachycardia. 1. Possible sepsis with hypotension, tachycardia. Required Levophed drip on admission Cefepime on admission -> then ceftriaxone (possible SBP) cultures obtained .Procalcitonin 1.79 Stopped antibiotics - as pt now comfort care 2.Alcoholic hepatitis, liver failure Total bilirubin 33.8, direct bilirubin 20.7, AST 156, ALT 89. Recently was taking Tylenol for his back pain. ICU started pt on steroids and also N acetylcysteine. GI consulted - cont. w/ octreotide, albumin Pt underwent EGD (concern for poss. GI bleed) Findings: There were 3 columns of grade 1 varices in the lower esophagus. The Z line was irregular. There was mild portal gastropathy in the fundus and body. There was a small amount of bilious fluid in the stomach. The antrum was normal. The duodenum was normal. There was contact oozing. Per GI: alc hep. His Na is 127, Bili 39 --> 33, INR 1.8--> 2, creat 3.0 His DF is 76, MELD is 37.He has been receiving NAC and solumederol for alc hep; He is on albumin, octreotide, and now midodrine with borderline uop. RECS: Diet as tolerated, follow hgb. Once daily oral PPI. Cont NAC protocol, prednisone for alc hep. US with doppler obtained IMPRESSION: Hepatic steatosis resulting in suboptimal evaluation portal and hepatic veins. However, no evidence for portal or hepatic vein thrombosis. Cont midodrine to support MAP, octreotide, and albumin infusions. Nephrology consulted and following. Echo obtained Mild concentric LVH. LV wall motion is normal. LVEF 55 to 60%. RV is normal in size and function. Mild tricuspid regurg. Interatrial septum is intact with no evidence for an atrial septal defect. There is no evidence of [id number] shunt as documented with the injected agitated saline contrast. Prognosis guarded. He has been denied for transfer to [facility]. Dr. Echavarria (GI) spoke to Dr. Cunningham at [facility] for possible transfer (on 11/17) - Phone number for transfer center [phone]. 11/18 - Requested records, CD with images and echo to be sent to [facility]. 11/19 - MELD score continues to be elevated (38). Discussed with [facility] physicians - in summary, due to patient's heart condition and alcohol use, patient not a candidate for transfer for liver transplant. 3. Alcoholism. Ativan protocol and IV thiamine. Received banana bag. - Will cont. ativan as above 4. Possible GI bleed. The patient on Protonix. Received IV vitamin K, as INR is 1.8 on admission. GI consulted. Underwent EGD as above. Now pt comfort care. 5. Hyponatremia, sodium 126 on admission. Probably fromalcohol use, liver failure, poss. hepatorenal syndrome. Nephrology consulted. Now pt is on comfort care. 6. Acute kidney injury. Possible hepatorenal syndrome with creatinine 3. Follow repeat labs. Nephrology consulted. Pt on octreotide, albumin. Now comfort measures. 7. History of atrial fibrillation s/p MAZE. On admission hypotensive, on Levophed drip -> then on midodrine. Only on Coreg at home, not taking any blood thinner. Developed Afib w/ RVR. Hr 130s. Received iv metoprolol, now comfort care measures. DNR/DNI COMFORT CARE Admission and Anticipated Discharge Date Admission Date: November 16, 2021 Subjective Patient seen in follow-up of jaundice, weakness, treated for alcoholic hepatitis, liver failure - now comfort care On admission found to have bilirubin of 39/33, creatinine of 3 Unfortunately patient not a candidate for transfer for liver transplant. Patient made comfort care, appreciate palliative medicine input. Patient is lethargic, however tachypneic, discussed this with RN -we will give scheduled medications earlier. Family at the bedside, and updated. Review of Systems Review of Systems: All systems reviewed & are unremarkable except as noted in Subjective Physical Exam Physical Exam: GENERAL: drowsy, obese M, on suppl. O2 HEENT: NC/AT. +scleral icterus present. NECK: R IJ removed (dressings applied) CARDIOVASCULAR: + tachycardic RESPIRATORY : No accessory muscle use. +Tachypneic, + basilar crackles, using suppl. O2 ABDOMEN: distended, soft. NEURO: drowsy, Occasionally moves extremities. EXTREMITIES: 1+ LE edema present. SKIN: jaundiced Results & Data Results & Data ([facility]) Medications Administered Current Inpatient Medications Glycopyrrolate (Glycopyrrolate 0.2 Mg/Ml Vial) 0.2 mg IV Q4H PRN PRN Reason: secretions, pulm. congestion Stop: 12/20/21 17:34 Last Admin: 11/21/21 02:46 Dose: 0.2 mg Hydromorphone HCl (Hydromorphone Inj 0.5 Mg/0.5 Ml Syr) 0.25 mg IV Q30M PRN PRN Reason: Pain, dyspnea Stop: 12/04/21 10:46 Last Admin: 11/22/21 20:43 Dose: 0.25 mg Lorazepam 1 mg/ Syringe 1 mls @ 2 mls/min IV Q4H MAYRA Stop: 12/21/21 11:29 Last Admin: 11/22/21 18:30 Dose: 2 mls/min Ondansetron HCl (Ondansetron Inj 2 Mg/Ml 2 Ml Vial) 4 mg IV Q4H PRN PRN Reason: Nausea &/or Vomiting Stop: 12/20/21 10:41 Ondansetron HCl (Ondansetron 4 Mg Od Tab) 4 mg SL Q4H PRN PRN Reason: Nausea &/or Vomiting Stop: 12/20/21 10:41
[2021-11-22] MEDS: GLYCOPYRROLATE 0.2 MG/ML VIAL IV PRN (22:23)
[2021-11-23] MEDS: HYDROmorphone INJ 0.5 MG/0.5 ML SYR IV PRN (01:14)
[2021-11-23] MEDS: LORazepam 1 MG in SYRINGE 0.5 ML IV SCH (03:27)
--- NOTE | 2021-11-23 09:08 | Death Pronouncement Note ---
Date of Service November 23, 2021 Pronouncement Note Admission Date November 16, 2021 Date and Time of Date of : 11/23/21 Time of : 04:15 Summary Patient was on Comfort care. at 4:15am today November 23 2021. Additional Data Confirmation of : no pulse, no respirations, no heart sounds and pupils fixed and dilated Pronouncement Performed By: Attending Physician Family: at bedside Attending physician: Jayden Hampton M.D
--- NOTE | 2021-11-23 09:35 | Discharge Summary ---
Discharge Summary Date of Service November 23, 2021 Notes For Next Care Provider PATIENT Medication Changes From Visit n/a Admission HPI Per Admitting Provider HISTORY OF PRESENT ILLNESS: A 51-year-old male with past medical history significant for AFib, status post maze procedure, hypertension, GERD, history of alcohol abuse, presents with jaundice and abdominal and back pain. The patient's girlfriend in the room . She says he used to drink one fifth of liquor per day but for the last 2 weeks, he is mostly bedbound. He started getting yellow, which progressively got worse, he is not able to get up from bed much, not drinking much because he is feeling significantly sick. He had 1 beer today and he is also taking Tylenol 2 tablets a day for his back pain. As he is not getting better, came to the ER. He also reports some shortness of breath and cough with yellow sputum for 1 week, having some dizziness on standing. In the ER, his labs showed platelets of 115, sodium of 126, creatinine of 3, total bilirubin of 33, direct bilirubin of 20, AST 156, ALT 89. Procalcitonin 1.79. Ethyl alcohol 11.6. CT abdomen and pelvis was done showing hepatic steatosis and hepatomegaly. No hydronephrosis or obstructing stone was seen. Cholelithiasis without cholecystitis. The patient was also having tachycardia and hypotension in the ER, he was requiring pressors. Also given d cefepime, and fluids. ER talked with GI and GI was advised to transfer to [place] as MELD score is high though GI was skeptical about acceptance for transfer as he still drinking. The ER called the [place] , but they wanted to observe first in the hospital, they thought it will be most likely alcoholic hepatitis and wanted to check his INR b.i.d. and if the INR is getting worse or getting confused can transfer. The patient is alert, awake, and oriented. Denies any headache, no chest pain. Currently, no nausea or vomiting. Denies any diarrhea. He says he had a small amount of bloody bowel movement about a few days ago and attributes it to his hemorrhoids. Normal bladder movements. Denies any abdominal pain. Denies any fevers. Admission Exam Per Admitting Provider PHYSICAL EXAMINATION: GENERAL: The patient is alert, awake, and oriented x3. HEENT: No scleral icterus present. Pupils equal, round and reactive to light. Oral mucosa moist. NECK: No JVD or neck masses. CARDIOVASCULAR: S1 and S2 heard. Regular rate and rhythm. No murmur, no gallop. RESPIRATORY SYSTEM: Normal AP diameter. No accessory muscle use. No wheezing, no crackles. ABDOMEN: Somewhat tense. Mild discomfort on palpation. Bowel sounds present. CENTRAL NERVOUS SYSTEM: Alert and oriented x3. No facial droop. Speech is clear. Obeys commands. Insight is okay. Moves extremities. EXTREMITIES: Mild pedal edema present. SKIN: Yellowish discoloration. Principal Dx & Hospital Course #1 = Principal Diagnosis (1) Acute alcoholic hepatitis: (2) Sepsis: (3) Hypotension: (4) Hepatorenal syndrome: (5) Alcohol abuse: (6) Jaundice due to hepatitis: (7) A-fib: Plan 51-year-old man with history of alcohol abuse presented with alcoholic hepatitis, sepsis with hypotension and tachycardia. He was started on Levophed and placed in the ICU. Out of concern for possible GI bleed he was placed on Protonix and received IV vitamin K as his INR was 1.8. He received a banana bag and was monitored for alcohol withdrawal. N-acetylcysteine drip and IV steroids were initiated. Patient was not a candidate for transplant due to active drinking per [place] liver transplant service. Acute kidney injury was seen likely from presumed hepatorenal syndrome but could not rule out ATN secondary to hypotension/sepsis. IV fluid resuscitation was continued. Albumin was given every 8 hours. Ceftriaxone was given out of concern for possible infection. GI was consulted and octreotide drip was started. Midodrine was given to support MAP. Nephrology was consulted and deemed him not a dialysis candidate. Patient underwent an EGD on 11/17 revealing esophageal varices, mild portal gastropathy in the fundus and the body, small amount of bilious fluid in the stomach, normal antrum and duodenum with contact oozing in the duodenum. On 11/18 he was transferred to the PCU. An echocardiogram was performed revealing ejection fraction 55 to 60%. On 11/21 he was seen by palliative care as his heart rate increased overnight oxygen requirement also increased and mental status worsened. Patient started exhibiting signs of alcohol withdrawal per nursing staff. Per multiple family members patient wished not to be on a ventilator. Per patient's son his status was changed to comfort care. He continued to receive palliative therapies until his on 11/23. Discharge Exam see note Updated Medication List Medication Instructions Recorded Confirmed Type carvedilol 12.5 mg tablet 12.5 mg PO DAILY 02/15/21 11/16/21 History omeprazole 20 mg capsule,delayed 20 mg PO DAILY 02/15/21 11/16/21 History release Hospital Stay Data Consultations 11/16/21 23:39 Consult Signal Maintainer Routine 11/17/21 08:00 Consult Gastroenterology Routine Consult Nephrology Routine 11/20/21 07:16 Consult Cardiology Routine 11/20/21 10:44 Consult Palliative Care Routine Procedures Performed Operation Date: 11/17/21 13:40 Actual Procedures p Esophagogastroduodenoscopy - Jose De Anda MD Operation Date: 11/17/21 17:25 <No data on this case meets the specified criteria> Diagnostic Imagining Performed 11/16/21 18:35 CT abd pelvis wo con Stat 11/16/21 23:24 US point of care ultrasound Urgent 11/17/21 02:47 US venous doppler LE BI Routine 11/17/21 15:08 US portal veins doppler [US duplex portal hepatic veins] Urgent Total Time Total Time Spent Total Time Spent (In Minutes): 60
--- NOTE | 2021-11-24 07:27 | Communication Note ---
Date of Service: November 24, 2021 Error on Note. Patient at 5:15am on November 23 2021.
== END 2021-11-23 09:35 | disposition expired | DRG 441 ==
LOC: ED 17:10 → SUATTDRO 22:25 → 1E 22:25 → 3E 11-20 10:31
DX: K70.40 Alcoholic hepatic failure without coma; N39.0 Urinary tract infection, site not specified; I95.9 Hypotension, unspecified; Z51.5 Encounter for palliative care; K76.7 Hepatorenal syndrome; Z74.01 Bed confinement status; K85.20 Alcohol induced acute pancreatitis without necrosis or infection; K21.9 Gastro-esophageal reflux disease without esophagitis; E83.39 Other disorders of phosphorus metabolism; F10.230 Alcohol dependence with withdrawal, uncomplicated; Z66 Do not resuscitate; K31.89 Other diseases of stomach and duodenum; I42.9 Cardiomyopathy, unspecified; K65.0 Generalized (acute) peritonitis; I48.91 Unspecified atrial fibrillation; A41.9 Sepsis, unspecified organism; K70.10 Alcoholic hepatitis without ascites; E87.1 Hypo-osmolality and hyponatremia; D68.9 Coagulation defect, unspecified; N17.0 Acute kidney failure with tubular necrosis; K92.2 Gastrointestinal hemorrhage, unspecified; R45.1 Restlessness and agitation